=== PATIENT | female | born 1960 | race Caucasian/White ===

== ENCOUNTER 2018-08-16 18:11 | Inpatient (IN) ==
--- NOTE | 2018-08-16 22:57 | ED ---
HPI General Chief complaint: Weakness Stated complaint: leg pain/evac Time Seen by Provider: 08/16/18 22:22 Source: patient Mode of arrival: wheelchair Limitations: physical limitation History of Present Illness HPI Narrative: 58 yo female with a history of spinal stenosis and diabetic neuropathy presents with acute onset of bilateral arm and leg weakness for the past 4 days. States that she was previously able to stand and walk but has been unable to do so for the past 4 days. Also difficulty gripping utensils with hands. Has had several falls due to leg weakness resulting in bruising on extremities, no head trauma. Has a long history of diabetic neuropathy in both legs, states chronic numbness in both legs. However, does report that flexion of head results in "electric shock" sensation running down legs to knees as of the past few days. Patient urinary incontinence for a month with regular leakage of urine especially on standing. Some bowel incontinence which patient relates to inability to physically reach restroom in time. No chest pain, increase of baseline SOB, vision changes, slurred speech. Presented to ED in [place] twice over the last several days related to these complaints reportedly without relief of symptoms or clear diagnosis. Last MRI of patient's back done several years ago. Related Data Home Medications Medication Instructions Recorded Confirmed albuterol sulfate 1.25 mg INHALATION QID PRN 08/16/18 08/16/18 clonidine HCl 0.1 mg PO BID 08/16/18 08/16/18 duloxetine 30 mg PO BID 08/16/18 08/16/18 duloxetine 30 mg PO BID 08/16/18 08/16/18 fluticasone-salmeterol [Advair 1 inh INHALATION BID 08/16/18 08/16/18 Diskus] furosemide 40 mg PO BID 08/16/18 08/16/18 furosemide 40 mg PO DAILY 08/16/18 08/16/18 levothyroxine 88 mcg PO DAILY 08/16/18 08/16/18 levothyroxine 88 mcg PO DAILY 08/16/18 08/16/18 lisinopril-hydrochlorothiazide 1 tab PO DAILY 08/16/18 08/16/18 montelukast 10 mg PO QPM 08/16/18 08/16/18 montelukast 10 mg PO QPM 08/16/18 08/16/18 naproxen 500 mg PO BID 08/16/18 08/16/18 omeprazole 40 mg PO DAILY 08/16/18 08/16/18 oxycodone-acetaminophen 1 tab PO Q4H PRN 08/16/18 08/16/18 paroxetine HCl 20 mg PO DAILY 08/16/18 08/16/18 paroxetine HCl 20 mg PO DAILY 08/16/18 08/16/18 pioglitazone 45 mg PO DAILY 08/16/18 08/16/18 simvastatin 20 mg PO QPM 08/16/18 08/16/18 simvastatin 20 mg PO QPM 08/16/18 08/16/18 sitagliptin-metformin [Janumet] 1 tab PO BID 08/16/18 08/16/18 temazepam 30 mg PO PRN 08/16/18 tiotropium bromide [Spiriva with 1 cap INHALATION DAILY 08/16/18 08/16/18 HandiHaler] tizanidine 4 mg PO TID 08/16/18 08/16/18 Allergies Allergy/AdvReac Type Severity Reaction Status Date / Time No Known Allergies Allergy Verified 08/16/18 22:35 Review of Systems ROS: all other systems reviewed are negative [facility] Medical History Medical History Hx of diabetes mellitus (Acute) Hx of spinal stenosis (Acute) Hypertension (Acute) Morbid obesity (Acute) Social History Social History Smoking Status: Former smoker How Often Do You Have a Drink Containing Alcohol: Never Recent Travel in [facility] within the Last 8 Weeks: No Recent Out of Country Travel within the Last 8 Weeks: No Immunization History Tetanus Immunization: >5 Years Exam Const General: cooperative and no acute distress Nutritional Appearance: obese Orientation: alert, awake and oriented x3 Limitations: physical limitations [facility] Head: normocephalic and atraumatic Nose: no nasal discharge and no epistaxis Mouth: moist mucous membranes Eyes Sclera: normal sclerae Pupils: PERRL Neck Neck: trachea midline and no JVD Resp Effort & Inspection: no use of accessory muscles Auscultation: clear to auscultation bilaterally Cardio Rate: regular rate Rhythm: regular rhythm Heart Sounds: no murmurs GI Inspection: non-distended Palpation: soft, no hepatosplenomegaly and nontender Back/Spine/Pelvis Thoracic/Lumbar Spine: lumbar spinal tenderness Skin General: dry skin (warm) Neuro General: alert, awake, oriented x3 and CN's II-XI intact bilaterally Cranial Nerves: other Speech: speech normal Motor: other (4/5 strength upper extremities bilaterally, 2/5 strength in LEs bilaterally) Sensory Exam: other (decreased sensation to touch LE bilaterally) Extrem General: edema Laterality: bilaterally Psych Mood: congruent mood Affect: normal affect Judgment: judgment good Course Initial Documented Vital Signs Temperature 98.9 F 08/16/18 18:26 Pulse Rate 88 08/16/18 18:26 Respiratory Rate 24 08/16/18 18:26 Blood Pressure 140/90 08/16/18 18:26 Pulse Oximetry 95 08/16/18 18:26 Last Documented Vital Signs Temperature 98.9 F 08/16/18 18:26 Pulse Rate 85 08/17/18 00:17 Respiratory Rate 16 08/16/18 22:33 Blood Pressure 172/94 H 08/16/18 22:33 Pulse Oximetry 98 08/16/18 22:33 Medical Decision Making Lab Data Result diagrams: 08/16/18 22:50 08/16/18 22:50 Lab Results 08/16/18 08/16/18 08/16/18 Range/Units 22:50 22:50 22:50 WBC 7.4 (4.0-11.0) th/mm3 RBC 4.28 (4.00-5.30) mil/mm3 Hgb 13.8 (11.6-15.3) gm/dL Hct 41.7 (35.0-46.0) % MCV 97.5 (80.0-100.0) fL MCH 32.2 (27.0-34.0) pg MCHC 33.0 (32.0-36.0) % RDW 14.4 (11.6-17.2) % Plt Count 248 (150-450) th/mm3 MPV 8.5 (7.0-11.0) fL Neut % (Auto) 60.9 (16.0-70.0) % Lymph % (Auto) 27.9 (9.0-44.0) % [place] % (Auto) 6.0 (0.0-8.0) % Eos % (Auto) 4.4 H (0.0-4.0) % Baso % (Auto) 0.8 (0.0-2.0) % Neut # (Auto) 4.5 (1.8-7.7) th/mm3 Lymph # (Auto) 2.1 (1.0-4.8) th/mm3 [place] # (Auto) 0.4 (0.0-0.9) th/mm3 Eos # (Auto) 0.3 (0.0-0.4) th/mm3 Baso # (Auto) 0.1 (0.0-0.2) th/mm3 WBC Differential . Differential Comment Auto diff final PT 10.7 (9.8-11.6) sec INR 1.1 Ratio APTT 27.3 (24.3-30.1) sec Sodium 141 (136-145) meq/L Potassium 4.2 (3.5-5.1) meq/L Chloride 105 (98-107) meq/L Carbon Dioxide 31.2 (21.0-32.0) meq/L Anion Gap 5 (5-15) meq/L BUN 21 H (7-18) mg/dL Creatinine 1.36 H (0.50-1.00) mg/dL Estimated GFR 40 L (>89) mL/min Random Glucose 104 (74-106) mg/dL Calcium 9.5 (8.5-10.1) mg/dL Total Bilirubin 0.4 (0.2-1.0) mg/dL AST 16 (15-37) U/L ALT 14 (10-53) U/L Alkaline Phosphatase 104 (45-117) U/L Troponin I Less than 0.02 L (0.02-0.05) ng/mL Total Protein 6.7 (6.4-8.2) g/dL Albumin 2.9 L (3.4-5.0) g/dL Urine Color (Yellw/Straw) Urine Clarity (Clear) Urine pH (5.0-8.5) Ur Specific Sunflower (1.002-1.035) Urine Protein (Neg-Trace) mg/dL Urine Glucose (UA) (Negative) mg/dL Urine Ketones (Negative) mg/dL Urine Occult Blood (Negative) Urine Nitrate (Negative) Urine Bilirubin (Negative) Urine Urobilinogen (Less than 2) mg/dL Ur Leukocyte Esterase (Negative) Urine RBC (0-3) /hpf Urine WBC (0-5) /hpf Ur Squamous Epith Cells (0-5) /hpf Urine Bacteria (None) /hpf Urine Mucus (Occasional) /lpf Micro UA Comment Ur Microscopic Review Urine Culture Comments 08/16/18 Range/Units 22:50 WBC (4.0-11.0) th/mm3 RBC (4.00-5.30) mil/mm3 Hgb (11.6-15.3) gm/dL Hct (35.0-46.0) % MCV (80.0-100.0) fL MCH (27.0-34.0) pg MCHC (32.0-36.0) % RDW (11.6-17.2) % Plt Count (150-450) th/mm3 MPV (7.0-11.0) fL Neut % (Auto) (16.0-70.0) % Lymph % (Auto) (9.0-44.0) % [place] % (Auto) (0.0-8.0) % Eos % (Auto) (0.0-4.0) % Baso % (Auto) (0.0-2.0) % Neut # (Auto) (1.8-7.7) th/mm3 Lymph # (Auto) (1.0-4.8) th/mm3 [place] # (Auto) (0.0-0.9) th/mm3 Eos # (Auto) (0.0-0.4) th/mm3 Baso # (Auto) (0.0-0.2) th/mm3 WBC Differential Differential Comment PT (9.8-11.6) sec INR Ratio APTT (24.3-30.1) sec Sodium (136-145) meq/L Potassium (3.5-5.1) meq/L Chloride (98-107) meq/L Carbon Dioxide (21.0-32.0) meq/L Anion Gap (5-15) meq/L BUN (7-18) mg/dL Creatinine (0.50-1.00) mg/dL Estimated GFR (>89) mL/min Random Glucose (74-106) mg/dL Calcium (8.5-10.1) mg/dL Total Bilirubin (0.2-1.0) mg/dL AST (15-37) U/L ALT (10-53) U/L Alkaline Phosphatase (45-117) U/L Troponin I (0.02-0.05) ng/mL Total Protein (6.4-8.2) g/dL Albumin (3.4-5.0) g/dL Urine Color Yellow (Yellw/Straw) Urine Clarity Clear (Clear) Urine pH 5.0 (5.0-8.5) Ur Specific Sunflower 1.011 (1.002-1.035) Urine Protein Negative (Neg-Trace) mg/dL Urine Glucose (UA) Negative (Negative) mg/dL Urine Ketones Negative (Negative) mg/dL Urine Occult Blood Negative (Negative) Urine Nitrate Negative (Negative) Urine Bilirubin Negative (Negative) Urine Urobilinogen Less than 2 (Less than 2) mg/dL Ur Leukocyte Esterase Small H (Negative) Urine RBC Less than 1 (0-3) /hpf Urine WBC 3 (0-5) /hpf Ur Squamous Epith Cells 1 (0-5) /hpf Urine Bacteria Rare H (None) /hpf Urine Mucus Few H (Occasional) /lpf Micro UA Comment Cath-culture ind Ur Microscopic Review Not Reportable Urine Culture Comments Cath-cult indicated Imaging Data Radiologist's impression: Lumbar Spine MRI 08/16/18 22:50 CONCLUSION: Multilevel degenerative disc disease with moderate stenosis at L4-L5 secondary to disc bulge and posterior element hypertrophy. Left-sided protrusion at L5-S1, compromising the exiting left L5 nerve root Thoracic Spine MRI 08/16/18 22:50 CONCLUSION: 1. Mild multilevel degenerative disc disease as above without evidence of stenosis. Cervical Spine MRI 08/17/18 22:48 CONCLUSION: Extruded disc fragment at C3-C4 eccentric to the right causing severe spinal canal stenosis with associated cord edema. There is a central to right-sided disc protrusion at C5-C6 compromising the nerve root exit zone. Discharge Plan Discharge Disposition Patient Disposition: 30 Still Patient Physicians Team ED Provider: Aliza Flores Primary Care Provider: UNKNOWN, Attending Provider: Rod Santiago Other Providers: Alexis Kam Status ED Status: Admitted Patient
[2018-08-16 23:10] LABS: Baso # (Auto) 0.1 th/mm3 (0.0-0.2); Baso % (Auto) 0.8 % (0.0-2.0); Eos # (Auto) 0.3 th/mm3 (0.0-0.4); Eos % (Auto) 4.4 % (0.0-4.0); Hematocrit 41.7 % (35.0-46.0); Hemoglobin 13.8 gm/dL (11.6-15.3); Lymph # (Auto) 2.1 th/mm3 (1.0-4.8); Lymph % (Auto) 27.9 % (9.0-44.0); Mean Corpuscular Hemoglobin 32.2 pg (27.0-34.0); Mean Corpuscular Volume 97.5 fL (80.0-100.0); Mean Platelet Volume 8.5 fL (7.0-11.0); Mono # (Auto) 0.4 th/mm3 (0.0-0.9); Neut # (Auto) 4.5 th/mm3 (1.8-7.7); Neut % (Auto) 60.9 % (16.0-70.0); Platelet Count 248 th/mm3 (150-450); Red Blood Count 4.28 mil/mm3 (4.00-5.30); Red Cell Distribution Width 14.4 % (11.6-17.2); White Blood Count 7.4 th/mm3 (4.0-11.0)
[2018-08-16 23:13] LABS: Bacteria,Urine Rare /hpf; Bilirubin,Urine Negative (Negative); Clarity,Urine Clear (Clear); Color,Urine Yellow (Yellw/Straw); Glucose,Urine (UA) Negative (Negative); Leukocyte Esterase,Urine Small (Negative); Mucus,Urine Few /lpf (Occasional); Nitrite,Urine Negative (Negative); Specific Gravity,Urine 1.011 (1.002-1.035); Squamous Epithelial Cell,Urine 1 /hpf (0-5)
[2018-08-16 23:36] LABS: Alanine Aminotransferase 14 U/L (10-53); Albumin 2.9 g/dL (3.4-5.0); Anion Gap 5 meq/L (5-15); Aspartate Aminotransferase 16 U/L (15-37); Blood Urea Nitrogen 21 mg/dL (7-18); Calcium 9.5 mg/dL (8.5-10.1); Carbon Dioxide 31.2 meq/L (21.0-32.0); Chloride 105 meq/L (98-107); Glomerular Filtration Rate 40 mL/min (>89); Glucose,Random 104 mg/dL (74-106); Potassium 4.2 meq/L (3.5-5.1); Sodium 141 meq/L (136-145)
[2018-08-16 23:39] LABS: Activated Partial Thrombo Time 27.3 sec (24.3-30.1); INR 1.1 Ratio; Prothrombin Time 10.7 sec (9.8-11.6)
[2018-08-16 23:40] LABS: Alkaline Phosphatase 104 U/L (45-117); Total Protein 6.7 g/dL (6.4-8.2)
--- NOTE | 2018-08-17 00:04 | MR ---
EXAM DATE: 08/16/2018 11:00 PM EDT AGE/SEX: 58 years / Female INDICATIONS: . Cord compression, back pain for four days. CLINICAL DATA: This is the patient's initial encounter. Patient reports that signs and symptoms have been present for 4 - 6 days and indicates a pain score of 9/10. MEDICAL/SURGICAL HISTORY: Hypertension. Diabetes mellitus type II. . Ovary sx. COMPARISON: No prior exams available for comparison. TECHNIQUE: Multiplanar, multisequence MRI of the lumbar spine was performed without contrast. Patie nt was scanned in a sitting position; neutral, flexion, and extension scans were performed in the sa gittal plane. FINDINGS: Sagittal images demonstrate normal vertebral body alignment and curvature. No focal areas of marrow r eplacement are identified. The conus terminates normally. Axial images were performed from T12-L1 thr ough L5-S1. T12-L1: There is no evidence of disc protrusion or spinal canal stenosis. There is mild facet arthri tis bilaterally. L1-L2: No significant abnormalities identified. L2-L3: There is mild annular bulge of the disc. There is mild facet arthritis and ligamentum flavum hypertrophy bilaterally. The neural foramina are clear bilaterally. L3-L4: There is mild annular bulge of the disc. There is moderate facet arthritis bilaterally with l igamentum flavum hypertrophy. There is a large synovial cyst on the right at L3-L4 posterior to the spinal canal measuring 15 mm x 10 mm . There is mild spinal canal stenosis. L4-L5: There is broad-based annular bulge of disc. There is moderate facet arthritis bilaterally wit h ligamentum flavum hypertrophy. There is moderate spinal canal stenosis. There is moderate neural f oraminal narrowing on the right. L5-S1: A central to left sided disc protrusion is present impinging on the thecal sac. This compromi ses the exiting left L5 nerve root with moderate foraminal narrowing. There is moderate facet arthrit is bilaterally with ligamentum flavum hypertrophy. There is no significant spinal canal stenosis. CONCLUSION: Multilevel degenerative disc disease with moderate stenosis at L4-L5 secondary to disc bulge and post erior element hypertrophy. Left-sided protrusion at L5-S1, compromising the exiting left L5 nerve root Electronically signed by: Ethan Sanchez MD 08/17/2018 12:02 AM EDT
--- NOTE | 2018-08-17 00:06 | MR ---
EXAM DATE: 08/16/2018 10:50 PM EDT AGE/SEX: 58 years / Female INDICATIONS: . Cord compression, back pain for four days. CLINICAL DATA: This is the patient's initial encounter. Patient reports that signs and symptoms have been present for 4 - 6 days and indicates a pain score of 9/10. MEDICAL/SURGICAL HISTORY: Hypertension. Diabetes mellitus type II. . Ovary sx. COMPARISON: No prior exams available for comparison. TECHNIQUE: Multiplanar, multisequence MRI of the thoracic spine was performed. FINDINGS: Sagittal images demonstrate normal vertebral body alignment and curvature. No focal area of marrow re placement are identified. The cord itself is normal in caliber and signal intensity. The conus termin ates normally. Axial images were performed from T1-T2 through T12-L1. Multilevel marginal osteophyte formation is present. T1-T2: No significant abnormalities identified. T2-T3: No significant abnormalities identified. T3-T4: There is mild annular bulge of the disc. There is no significant spinal canal stenosis. T4-T5: No significant abnormalities identified. T5-T6: No significant abnormalities identified. T6-T7: No significant abnormalities identified. T7-T8: There is mild annular bulge of the disc asymmetric to the right. There is no significant spin al canal stenosis. T8-T9: There is mild diffuse annular bulge of the disc. The neural foramina are clear bilaterally. T here is no significant spinal canal stenosis. T9-T10: No significant abnormalities identified. T10-T11: No significant abnormalities identified. T11-T12: No significant abnormalities identified. T12-L1: No significant abnormalities identified. CONCLUSION: 1. Mild multilevel degenerative disc disease as above without evidence of stenosis. Electronically signed by: Ethan Sanchez MD 08/17/2018 12:05 AM EDT
--- NOTE | 2018-08-17 00:37 | MR ---
EXAM DATE: 08/17/2018 10:48 PM EDT AGE/SEX: 58 years / Female INDICATIONS: . Cord compression, back pain for four days. CLINICAL DATA: This is the patient's initial encounter. Patient reports that signs and symptoms have been present for 4 - 6 days and indicates a pain score of 9/10. MEDICAL/SURGICAL HISTORY: Hypertension. Diabetes mellitus type II. . Ovary removed. COMPARISON: No prior exams available for comparison. TECHNIQUE: Multiplanar, multisequence MRI examination of the cervical spine was performed without co ntrast. FINDINGS: MRI of the cervical spine was performed in sagittal and axial planes. There is straightening of the n ormal cervical lordosis which may be secondary positioning or spasm. No focal areas of marrow replace ment are identified. The craniocervical junction appears normal there is cord edema at C3-C4 in this patient with a large central disc protrusion as well as extruded fragment. Axial images were performe d from C2-C3 through C7-T1.There is desiccation at all levels in the cervical spine. C2-C3: No significant abnormalities identified. C3-C4: There is a large extruded disc fragment impinging on the thecal sac with associated cord elfego a causing severe spinal canal stenosis. This is asymmetric to the right. There is moderate neural for aminal narrowing bilaterally. C4-C5: There is mild annular bulge of the disc. There is moderate facet arthritis bilaterally with l igamentum flavum hypertrophy. There is moderate neural foraminal narrowing bilaterally. C5-C6: A central to right-sided disc protrusion is present impinging on the thecal sac. There is mil d spinal canal stenosis. There is moderate neural foraminal narrowing on the right. This compromises the exiting right-sided nerve root exit zone. C6-C7: There is mild annular bulge of the disc. There is no significant spinal canal stenosis. The n eural foramina are clear bilaterally. C7-T1: No significant abnormalities identified. CONCLUSION: Extruded disc fragment at C3-C4 eccentric to the right causing severe spinal canal stenosis with asso ciated cord edema. There is a central to right-sided disc protrusion at C5-C6 compromising the nerve root exit zone. Electronically signed by: Ethan Sanchez MD 08/17/2018 12:35 AM EDT
[2018-08-17] MEDS ORDERED: Dexamethasone Inj 20 MG/5 ML Vial IV.PUSH ONE (00:55)
[2018-08-17] MEDS ORDERED: Acetaminophen 325 MG Tablet PO PRN (01:26)
[2018-08-17] MEDS ORDERED: Bisacodyl 10 MG Supp RECTAL PRN ×2 (01:26→16:43)
[2018-08-17] MEDS ORDERED: Dextrose 50% in Water 50 ML Vial IV.PUSH PRN (01:32)
--- NOTE | 2018-08-17 01:43 | P.HPCC ---
History of Present Illness Primary Care Physician: UNKNOWN History of Present Illness: 58-year-old female with a history of spinal stenosis and diabetic neuropathy presents with acute onset of bilateral arm and leg weakness for the past 4 days. States that she was previously able to stand and walk but has been unable to do so for the past 4 days. Also difficulty gripping utensils with hands. Has had several falls due to leg weakness resulting in bruising on extremities, no head trauma. Has a long history of diabetic neuropathy in both legs, states chronic numbness in both legs. However, does report that flexion of head results in "electric shock" sensation running down legs to knees as of the past few days. Patient urinary incontinence for a month with regular leakage of urine especially on standing. Some bowel incontinence which patient relates to inability to physically reach restroom in time. No chest pain, increase of baseline SOB, vision changes, slurred speech. Presented to ED in [place] twice over the last several days related to these complaints reportedly without relief of symptoms or clear diagnosis. The MRI of the C-spine shows Extruded disc fragment at C3-C4 eccentric to the right causing severe spinal canal stenosis with associated cord edema. This was discussed by ED attending with the neurosurgeon comfort station supervisor with recommendations of IV steroids and conservative management at this time. Inpatient Certification: I certify that the inpatient services were ordered in accordance with Medicare regulations governing the order. 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 - Medical History Medical History: Medical History (Last Reviewed 08/16/18 @ 23:06 by Herb Pennington) Hx of diabetes mellitus Hx of spinal stenosis Hypertension Morbid obesity - Tobacco History Smoking Status: Former smoker - Alcohol History How Often Do You Have a Drink Containing Alcohol: Never - Travel History Recent Travel in the [place] Within the Last 8 Weeks: No Recent Travel Out of the Country Within the Last 8 Weeks: No - Immunization History Tetanus Immunization: >5 Years Medications and Allergies Active Medications: Active Medications Acetaminophen (Tylenol) 650 mg PO Q6H PRN PRN Reason: PAIN 1-10 AND/OR FEVER >101F Al Hydroxide/Mg Hydroxide (Milk Of Magnesia Liq) 30 ml PO Q12H PRN PRN Reason: Mild Constipation Albuterol (Duoneb Neb (Katlyn)) 1 ampul NEB Q4HR NEB KATLYN Albuterol (Duoneb Neb (Prn)) 1 ampul NEB Q2HR NEB PRN PRN Reason: WHEEZING Bisacodyl (Dulcolax Supp) 10 mg RECTAL DAILY PRN PRN Reason: SEVERE CONSITIPATION Chlorhexidine Gluconate (Chlorhexidine 2% Cloth) 3 pack TOPICAL DAILY@0400 KATLYN Stop: 08/22/18 03:59 Chlorhexidine Gluconate (Chlorhexidine 2% Cloth) 3 pack TOPICAL DAILY@0400 PRN PRN Reason: Extra cloth needed Stop: 08/22/18 03:59 Dexamethasone Sodium Phosphate (Decadron Inj) 4 mg IV.PUSH Q6HR KATLYN Dextrose (D50w Vial) 50 ml IV.PUSH UNSCH PRN PRN Reason: PER HYPOGLYCEMIA PROTOCOL Duloxetine HCl (Cymbalta) 30 mg PO BID [facility] Enoxaparin Sodium (Lovenox Inj) 40 mg SQ Q24H [facility] Famotidine (Pepcid Pf Inj) 20 mg IV.PUSH Q12HR KATLYN Glucagon (Glucagon Inj) 1 mg OTHER PRN PRN PRN Reason: for Hypoglycemia Protocol Hydromorphone HCl (Dilaudid Pf Inj) 1 mg IV.PUSH Q4H PRN PRN Reason: PAIN SCALE 6 TO 10 Sodium Chloride (Ns Inj) 1,000 mls @ 154 mls/hr IV.CONT .Q6H30M [facility] Insulin Aspart (Novolog Insulin Correctional Sugar Inj) 0 unit SQ Q6HR [facility]; Protocol Insulin Detemir (Levemir Inj) 10 unit SQ BID [facility] Lactulose (Lactulose Liq) 30 ml PO DAILY PRN PRN Reason: SEVERE CONSITIPATION Levothyroxine Sodium (Synthroid) 88 mcg PO DAILY@0600 [facility] Montelukast Sodium (Singulair) 10 mg PO QPM [facility] Non-Formulary Medication (Fluticasone-Salmeterol [Advair Diskus]) 1 inh INHALATION BID [facility] Non-Formulary Medication (Simvastatin [Simvastatin]) 20 mg PO QPM [facility] Non-Formulary Medication (Tizanidine [Tizanidine]) 4 mg PO TID [facility] Paroxetine HCl (Paxil) 20 mg PO DAILY [facility] Senna/Docusate Sodium (Elida-Colace) 1 tab PO BID [facility] Sennosides (Senokot) 17.2 mg PO Q12H PRN PRN Reason: Moderate Constipation Sodium Chloride (Ns Flush) 2 ml IV.FLUSH BID KATLYN Sodium Chloride (Ns Flush) 2 ml IV.FLUSH PRN PRN PRN Reason: FLUSH AFTER USING IV ACCESS Temazepam (Restoril) 30 mg PO HS PRN PRN Reason: SLEEP Tiotropium Adair (Spiriva 18 Mcg Inh) 18 mcg INH DAILY [facility] Allergies Allergy/AdvReac Type Severity Reaction Status Date / Time No Known Allergies Allergy Verified 08/16/18 22:35 Home Medications Medication Instructions Recorded Confirmed Type albuterol sulfate 1.25 mg INHALATION QID PRN 08/16/18 08/16/18 History clonidine HCl 0.1 mg PO BID 08/16/18 08/16/18 History duloxetine 30 mg PO BID 08/16/18 08/16/18 History duloxetine 30 mg PO BID 08/16/18 08/16/18 History fluticasone-salmeterol [Advair 1 inh INHALATION BID 08/16/18 08/16/18 History Diskus] furosemide 40 mg PO BID 08/16/18 08/16/18 History furosemide 40 mg PO DAILY 08/16/18 08/16/18 History levothyroxine 88 mcg PO DAILY 08/16/18 08/16/18 History levothyroxine 88 mcg PO DAILY 08/16/18 08/16/18 History lisinopril-hydrochlorothiazide 1 tab PO DAILY 08/16/18 08/16/18 History montelukast 10 mg PO QPM 08/16/18 08/16/18 History montelukast 10 mg PO QPM 08/16/18 08/16/18 History naproxen 500 mg PO BID 08/16/18 08/16/18 History omeprazole 40 mg PO DAILY 08/16/18 08/16/18 History oxycodone-acetaminophen 1 tab PO Q4H PRN 08/16/18 08/16/18 History paroxetine HCl 20 mg PO DAILY 08/16/18 08/16/18 History paroxetine HCl 20 mg PO DAILY 08/16/18 08/16/18 History pioglitazone 45 mg PO DAILY 08/16/18 08/16/18 History simvastatin 20 mg PO QPM 08/16/18 08/16/18 History simvastatin 20 mg PO QPM 08/16/18 08/16/18 History sitagliptin-metformin [Janumet] 1 tab PO BID 08/16/18 08/16/18 History temazepam 30 mg PO PRN 08/16/18 History tiotropium bromide [Spiriva with 1 cap INHALATION DAILY 08/16/18 08/16/18 History HandiHaler] tizanidine 4 mg PO TID 08/16/18 08/16/18 History Results - Labs CBC & Chem 7: 08/16/18 22:50 08/16/18 22:50 Labs: Short CBC 08/16/18 Range/Units 22:50 WBC 7.4 (4.0-11.0) th/mm3 Hgb 13.8 (11.6-15.3) gm/dL Hct 41.7 (35.0-46.0) % Plt Count 248 (150-450) th/mm3 BMP 08/16/18 22:50 Sodium 141 Potassium 4.2 Chloride 105 Carbon Dioxide 31.2 BUN 21 H Creatinine 1.36 H Calcium 9.5 Cardiac Enzymes 08/16/18 Range/Units 22:50 Troponin I Less than 0.02 L (0.02-0.05) ng/mL Liver Function 08/16/18 Range/Units 22:50 Total Bilirubin 0.4 (0.2-1.0) mg/dL AST 16 (15-37) U/L ALT 14 (10-53) U/L Alkaline Phosphatase 104 (45-117) U/L Albumin 2.9 L (3.4-5.0) g/dL Urine 08/16/18 Range/Units 22:50 Urine Color Yellow (Yellw/Straw) Urine Clarity Clear (Clear) Urine pH 5.0 (5.0-8.5) Ur Specific [place] 1.011 (1.002-1.035) Urine Protein Negative (Neg-Trace) mg/dL Urine Glucose (UA) Negative (Negative) mg/dL - Imaging Impressions Lumbar Spine MRI 08/16/18 22:50 CONCLUSION: Multilevel degenerative disc disease with moderate stenosis at L4-L5 secondary to disc bulge and posterior element hypertrophy. Left-sided protrusion at L5-S1, compromising the exiting left L5 nerve root Thoracic Spine MRI 08/16/18 22:50 CONCLUSION: 1. Mild multilevel degenerative disc disease as above without evidence of stenosis. Cervical Spine MRI 08/17/18 22:48 CONCLUSION: Extruded disc fragment at C3-C4 eccentric to the right causing severe spinal canal stenosis with associated cord edema. There is a central to right-sided disc protrusion at C5-C6 compromising the nerve root exit zone. Exam Vital signs: Vital Signs 08/16/18 18:26 08/16/18 22:33 08/17/18 00:17 Temperature 98.9 F Pulse Rate 88 74 85 Respiratory Rate 24 16 Blood Pressure 140/90 172/94 H Pulse Oximetry 95 98 Intake & Output 08/16/18 08/16/18 08/17/18 06:59 18:59 06:59 Weight 165.561 kg - Constitutional moderate distress - Routine HEENT Exam Head: Present: normocephalic, atraumatic Eye: Present: PERRL, normal accommodation ENT: Present: mucous membranes moist - Routine Neck Exam Present: supple, full ROM. Absent: JVD, carotid bruit - Routine Respiratory Exam Absent: accessory muscle use, rales, respiratory distress - Routine Cardiovascular Exam Present: RRR, S1, S2. Absent: murmur, gallop, rubs - Routine Abdominal Exam Present: soft, normoactive bowel sounds. Absent: tenderness, distended - Routine Extremities Exam Present: edema. Absent: cyanosis, clubbing Comments: Extreme weakness in both lower extremities bilaterally, loss of sensation bilaterally with down, strength 4 out of 5 in upper extremities bilaterally, no sensation deficit. - Routine Skin Exam Present: intact. Absent: cyanosis, erythema Septic Shock Reassessment Septic shock perfusion: reassessment completed Caprini VTE Risk Assessment Caprini VTE Risk Assessment: Moderate/High Risk (score >= 2) Caprini Risk Assessment Model: Point Value = 1 Point Value = 2 Point Value = 3 Point Value = 5 Age 41-60 Minor surgery BMI > 25 kg/m2 Swollen legs Varicose veins or History of unexplained or recurrent spontaneous Oral contraceptives or hormone replacement Sepsis (< 1 month) Serious lung disease, including pneumonia (< 1 month) Abnormal pulmonary function Acute myocardial infarction Congestive heart failure (< 1 month) History of inflammatory bowel disease Medical patient at bed rest Age 61-74 Arthroscopic surgery Major open surgery (> 45 min) Laparoscopic surgery (> 45 min) Malignancy Confined to bed (> 72 hours) Immobilizing plaster cast Central venous access Age >= 75 History of VTE Family history of VTE Factor V Leiden Prothrombin [id number] Lupus anticoagulant Anticardiolipin antibodies Elevated serum homocysteine Heparin-induced thrombocytopenia Other congenital or acquired thrombophilia Stroke (< 1 month) Elective arthroplasty Hip, pelvis, or leg fracture Acute spinal cord injury (< 1 month) Prophylaxis Regimen: Total Risk Factor Score Risk Level Prophylaxis Regimen 0-1 Low Early ambulation 2 Moderate Order ONE of the following: *Sequential Compression Device (SCD) *Heparin 5000 units SQ BID 3-4 Higher Order ONE of the following medications: *Heparin 5000 units SQ TID *Enoxaparin/Lovenox 40 mg SQ daily (WT < 150 kg, CrCl > 30 mL/min) *Enoxaparin/Lovenox 30 mg SQ daily (WT < 150 kg, CrCl > 10-29 mL/min) *Enoxaparin/Lovenox 30 mg SQ BID (WT < 150 kg, CrCl > 30 mL/min) AND/OR *Sequential Compression Device (SCD) 5 or more Highest Order ONE of the following medications: *Heparin 5000 units SQ TID (Preferred with Epidurals) *Enoxaparin/Lovenox 40 mg SQ daily (WT < 150 kg, CrCl > 30 mL/min) *Enoxaparin/Lovenox 30 mg SQ daily (WT < 150 kg, CrCl > 10-29 mL/min) *Enoxaparin/Lovenox 30 mg SQ BID (WT < 150 kg, CrCl > 30 mL/min) AND *Sequential Compression Device (SCD) Assessment and Plan - Assessment and Plan Plan: C3-C4 spinal stenosis -Due to Extruded disc fragment -with associated cord edema. -IV steroids per neurosurgery -Keep MAP 85-90 -Further management per neurosurgery Urinary incontinence -Due to above -Wise COPD -DuoNeb scheduled and as needed -Symbicort - Singulair -Spiriva Depression -Cymbalta -Paroxetine Hypothyroidism -Levothyroxine Dyslipidemia -Pravastatin Diabetes mellitus -Hold p.o. meds while in the ICU -Levemir twice daily -Insulin sliding scale Hypertension -Permissive hypertension for spinal cord perfusion -Map goal 85-90 DVT GI prophylaxis -Teds SCDs -Lovenox -Pepcid 35 minutes of critical care
[2018-08-17] MEDS: Sod Chloride 0.9% Inj 1,000 ML IV.CONT SCH ×4 (01:57→22:15)
[2018-08-17] MEDS ORDERED: Enoxaparin Inj 40 MG/0.4 ML Syringe SQ SCH (03:00)
[2018-08-17] MEDS: HYDROmorphone PF Inj 2 MG/ML Vial IV.PUSH PRN ×3 (03:36→19:46)
[2018-08-17] MEDS: Chlorhexidine Gluconate 2% 1 Pack (2 Cloths) TOPICAL SCH (04:00)
[2018-08-17] MEDS ORDERED: Chlorhexidine Gluconate 2% 1 Pack (2 Cloths) TOPICAL PRN (04:00)
[2018-08-17] MEDS ORDERED: Metoprolol Inj 5 MG/5 ML Vial ONE (04:21)
[2018-08-17] MEDS ORDERED: Metoprolol Inj 5 MG/5 ML Vial IV.PUSH ONE (04:30)
[2018-08-17] MEDS: Levothyroxine 88 MCG Tablet PO SCH (05:10)
[2018-08-17] MEDS: Insulin NovoLOG Aspart Correctional Sugar Inj SQ SCH ×4 (06:08→23:14)
[2018-08-17] MEDS ORDERED: Budesonide-Formoterol 160/4.5 MCG 6 GM Inhaler INH SCH (09:00)
[2018-08-17] MEDS ORDERED: TIZANIDINE 4 MG PO SCH (09:00)
--- NOTE | 2018-08-17 09:02 | P.CONNS ---
History of Present Illness Service: Neurosurgery Consult date: 08/17/18 Requesting Physician: Rod Santiago (It Programmer) Reason for Consult: Cervical stenosis with spinal cord injury Primary Care Provider: UNKNOWN Chief Complaint: Weakness and numbness History of Present Illness: 58-year-old morbidly obese female with a chronic history of neck and low back pain for which she is undergone extensive pain management with epidural steroid injections. Over the past month she started noticing urinary incontinence as well as unsteadiness in her gait with progressive weakness in the lower extremities and upper extremities along with frequent falls. She went to [facility] emergency room 5 days ago because she is a difficulty walking even with a walker and was informed that she had a low magnesium level and sent home, she went back to the emergency room 3 days ago with worsening weakness and inability to walk and was informed that she had some arthritis and degeneration of the spine along with low magnesium level and sent home. She presented to the emergency room at [facility] late last evening with a progressive weakness and workup included a complete spine MRI scan shows a severe C3-4 spinal stenosis from large osteophyte and disc protrusion eccentric to the right side to the significant T2-weighted myelomalacia in the cervical cord noted. There is also mild to moderate stenosis at C5-6 level and mild stenosis C6-7 level. She has moderate L4-5 spinal stenosis from facet and ligamentum flavum hypertrophy. She also is a diabetic and has diabetic neuropathy involving her feet which is chronic. She relates shocklike sensation going from the cervical spine to her feet whenever she flexes her neck and is also noted numbness and paresthesias in the upper extremities along with weakness in the upper and lower extremities which have been ongoing for the past months and progressively worsening. Review of Systems Constitutional: Reports fatigue, Reports lack of energy, Reports weakness, Denies anorexia, Denies body ache(s), Denies chills, Denies daytime sleepiness, Denies excessive sweating, Denies fever(s), Denies headache(s), Denies increased appetite, Denies malaise, Denies night sweats, Denies weight gain, Denies weight loss, Denies other Eyes: Denies blind spots, Denies blurry vision, Denies bulging eyes, Denies change in vision, Denies double vision, Denies discharge, Denies dry eyes, Denies floaters, Denies irritation, Denies itchy eyes, Denies loss of vision, Denies pain, Denies requires corrective lenses, Denies sensitivity to light, Denies other Ears, Nose, Mouth, and Throat: Reports dry mouth, Reports neck pain, Denies abnormal hearing, Denies bleeding gums, Denies bad breath, Denies change in voice, Denies dental pain, Denies difficulty swallowing, Denies dizziness, Denies ear discharge, Denies ear pain, Denies facial pain, Denies headache(s), Denies hearing loss, Denies hoarseness, Denies lip swelling, Denies nosebleed, Denies mouth lesions, Denies mouth pain, Denies nasal congestion, Denies nasal discharge, Denies nasal obstruction, Denies nasal trauma, Denies neck lump, Denies nose pain, Denies pain with swallowing, Denies poor balance, Denies post nasal drip, Denies ringing in the ears, Denies sinus pain, Denies sinus pressure , Denies sore throat, Denies throat swelling, Denies tongue swelling, Denies other Cardiovascular: Denies chest pain, Denies chest pain at rest, Denies chest pain with activity, Denies excessive sweating, Denies fainting, Denies fast heart rate, Denies foot swelling, Denies generalized swelling, Denies irregular heart rhythm, Denies leg pain with activity, Denies leg sores, Denies leg swelling, Denies lightheadedness, Denies radiating jaw, neck or arm pain, Denies rapid, pounding, or irregular heartbeat, Denies shortness of breath, Denies shortness of breath with activity, Denies shortness of breath when lying down, Denies shortness of breath causing sudden awakening, Denies slow heart rate, Denies other Respiratory: Denies change in phlegm color, Denies chest congestion, Denies cough, Denies coughing up blood, Denies excessive phlegm production, Denies pain on inspiration, Denies pain with cough, Denies shortness of breath, Denies shortness of breath with activity, Denies snoring, Denies stridor, Denies wheezing, Denies other Gastrointestinal: Denies abdominal pain, Denies belching, Denies black, tarry stools, Denies bloating, Denies bright, red blood in stools, Denies change in bowel habits, Denies constant urge to pass stool, Denies change in stools, Denies coffee ground vomit, Denies constipation, Denies cramping, Denies difficulty swallowing, Denies excessive passing of gas, Denies feeling full early, Denies heartburn, Denies incontinent of stools, Denies loose stools, Denies nausea, Denies pain with swallowing, Denies vomiting, Denies vomiting blood, Denies other Genitourinary: Reports difficulty urinating, Reports dribbling after urination, Reports frequent nighttime urination, Reports urinary incontinence, Reports urinary urgency, Denies abnormal periods, Denies abnormal vaginal bleeding, Denies absent period, Denies bleeding between periods, Denies blood in urine, Denies difficulty starting urination, Denies genital itching, Denies genital lesions, Denies heavy periods, Denies hot flashes, Denies light periods, Denies nipple discharge, Denies painful intercourse, Denies painful periods, Denies painful urination, Denies pelvic pain, Denies prolapse symptoms, Denies sexual problems, Denies side pain, Denies vaginal discharge, Denies vaginal dryness, Denies vaginal odor, Denies vaginal itching, Denies other Musculoskeletal: Reports abnormal walking, Reports back pain, Reports limited joint movement, Reports muscle cramps, Reports muscle weakness, Reports neck pain, Reports numbness, Reports radiating pain into limb, Reports stiffness, Reports tingling, Denies body aches, Denies decreased muscle mass, Denies deformity, Denies joint pain, Denies joint swelling, Denies loss of height, Denies other Skin/Breast: Reports bleeding lesions, Reports unusual bruising, Denies acne, Denies boil, Denies breast swelling, Denies breast skin changes, Denies breast pain, Denies breast lump, Denies change in breast shape, Denies change in hair, Denies change in skin color, Denies changing lesions, Denies dry skin, Denies excessive hair growth, Denies hair loss, Denies itching, Denies lesions, Denies nail changes, Denies new lesions, Denies nipple discharge, Denies non-healing lesions, Denies redness, Denies sensitivity to light, Denies rash, Denies skin pain, Denies skin ulcer, Denies sores, Denies stretch gibbs, Denies wounds, Denies yellowing of the skin, Denies other Neurologic: Reports abnormal movements, Reports abnormal walking, Reports frequent falls, Reports lack of coordination, Reports localized weakness, Reports numbness, Reports radiating pain, Reports restless legs, Reports sensory deficit, Reports tingling, Reports tingling/numbness/burning sensations , Reports unsteadiness, Reports weakness, Denies abnormal hearing, Denies abnormal speech, Denies behavioral changes, Denies burning sensations, Denies confusion, Denies dizziness, Denies fainting, Denies headache(s), Denies loss of vision, Denies memory loss, Denies other visual disturbances, Denies convulsions, Denies seizure-like activity, Denies tremor(s), Denies other Psychiatric: Denies abnormal sleep pattern, Denies anxiety, Denies behavioral changes, Denies change in appetite, Denies change in sex drive, Denies confusion , Denies depression, Denies difficulty concentrating, Denies hearing things others do not hear, Denies hopelessness, Denies irritability, Denies lack of enjoyment, Denies memory loss, Denies mood swings, Denies panic attacks, Denies paranoia, Denies seeing things others do not see, Denies sensing things others do not sense, Denies tactile hallucinations, Denies thoughts of hurting/killing others, Denies thoughts of hurting/killing yourself, Denies other Endocrine: Reports increased urination, Denies cold intolerance, Denies excessive sweating, Denies flushing, Denies heat intolerance, Denies increased hunger, Denies increased thirst, Denies rapid, pounding, or irregular heartbeat , Denies other Hematologic/Lymphatic: Reports easy bleeding, Reports easy bruising, Denies enlarged lymph nodes, Denies other Allergic/Immunologic: Denies GI upset with certain foods, Denies hives, Denies itchy eyes, Denies lip swelling, Denies seasonal runny nose, Denies throat swelling, Denies tongue swelling, Denies wheezing, Denies other PMFSH - History History Provided By: Patient - Medical History Medical History: Medical History (Last Reviewed 08/17/18 @ 08:50 by Alexis Kam MD) Hx of diabetes mellitus Hx of spinal stenosis Hypertension Morbid obesity - Tobacco History Second Hand Smoke Exposure: No Tobacco Use In Past 30 Days: Yes Smoking Status: Heavy tobacco smoker Tobacco Type: Cigarettes - Alcohol History How Often Do You Have a Drink Containing Alcohol: 2 to 3 times a week - Substance Use History Substance History: No History of Abuse - Travel History Recent Travel in the [place] Within the Last 8 Weeks: No Recent Travel Out of the Country Within the Last 8 Weeks: No - Immunization History Tetanus Immunization: >5 Years Medications and Allergies Active Medications: Active Medications Acetaminophen (Tylenol) 650 mg PO Q6H PRN PRN Reason: PAIN 1-10 AND/OR FEVER >101F Al Hydroxide/Mg Hydroxide (Milk Of Tate Liq) 30 ml PO Q12H PRN PRN Reason: Mild Constipation Albuterol (Duoneb Neb (Katlyn)) 1 ampul NEB Q4HR NEB KATLYN Last Admin: 08/17/18 08:22 Dose: 1 ampul Albuterol (Duoneb Neb (Prn)) 1 ampul NEB Q2HR NEB PRN PRN Reason: WHEEZING Bisacodyl (Dulcolax Supp) 10 mg RECTAL DAILY PRN PRN Reason: SEVERE CONSITIPATION Budesonide/Formoterol Fumarate (Symbicort 160/4.5 Mcg Inh) 2 puff INH BID KATLYN Budesonide/Formoterol Fumarate (Symbicort 160/4.5 Mcg Inh) 2 puff INH BID KATLYN Chlorhexidine Gluconate (Chlorhexidine 2% Cloth) 3 pack TOPICAL DAILY@0400 KATLYN Stop: 08/22/18 03:59 Last Admin: 08/17/18 04:00 Dose: 3 pack Chlorhexidine Gluconate (Chlorhexidine 2% Cloth) 3 pack TOPICAL DAILY@0400 PRN PRN Reason: Extra cloth needed Stop: 08/22/18 03:59 Dexamethasone Sodium Phosphate (Decadron Inj) 4 mg IV.PUSH Q6HR [facility] Last Admin: 08/17/18 05:54 Dose: 4 mg Dextrose (D50w Vial) 50 ml IV.PUSH UNSCH PRN PRN Reason: PER HYPOGLYCEMIA PROTOCOL Duloxetine HCl (Cymbalta) 30 mg PO BID KATLYN Famotidine (Pepcid Pf Inj) 20 mg IV.PUSH Q12HR KATLYN Glucagon (Glucagon Inj) 1 mg OTHER PRN PRN PRN Reason: for Hypoglycemia Protocol Hydromorphone HCl (Dilaudid Pf Inj) 1 mg IV.PUSH Q4H PRN PRN Reason: PAIN SCALE 6 TO 10 Last Admin: 08/17/18 03:36 Dose: 1 mg Sodium Chloride (Ns Inj) 1,000 mls @ 154 mls/hr IV.CONT .Q6H30M [facility] Last Admin: 08/17/18 01:57 Dose: 154 mls/hr Insulin Aspart (Novolog Insulin Correctional Sugar Inj) 0 unit SQ Q6HR [facility]; Protocol Last Admin: 08/17/18 06:08 Dose: Not Given Insulin Detemir (Levemir Inj) 10 unit SQ BID [facility] Lactulose (Lactulose Liq) 30 ml PO DAILY PRN PRN Reason: SEVERE CONSITIPATION Levothyroxine Sodium (Synthroid) 88 mcg PO DAILY@0600 [facility] Last Admin: 08/17/18 05:10 Dose: Not Given Montelukast Sodium (Singulair) 10 mg PO QPM KATLYN Paroxetine HCl (Paxil) 20 mg PO DAILY [facility] Pravastatin Sodium (Pravachol) 40 mg PO QPM [facility] Senna/Docusate Sodium (Elida-Colace) 1 tab PO BID [facility] Sennosides (Senokot) 17.2 mg PO Q12H PRN PRN Reason: Moderate Constipation Sodium Chloride (Ns Flush) 2 ml IV.FLUSH BID [facility] Sodium Chloride (Ns Flush) 2 ml IV.FLUSH PRN PRN PRN Reason: FLUSH AFTER USING IV ACCESS Temazepam (Restoril) 30 mg PO HS PRN PRN Reason: SLEEP Tiotropium Coolidge (Spiriva 18 Mcg Inh) 18 mcg INH DAILY [facility] Tizanidine HCl (Zanaflex) 4 mg PO TID [facility] Allergies Allergy/AdvReac Type Severity Reaction Status Date / Time No Known Allergies Allergy Verified 08/16/18 22:35 Home Medications Medication Instructions Recorded Confirmed Type albuterol sulfate 1.25 mg INHALATION QID PRN 08/16/18 08/16/18 History clonidine HCl 0.1 mg PO BID 08/16/18 08/16/18 History duloxetine 30 mg PO BID 08/16/18 08/16/18 History duloxetine 30 mg PO BID 08/16/18 08/16/18 History fluticasone-salmeterol [Advair 1 inh INHALATION BID 08/16/18 08/16/18 History Diskus] furosemide 40 mg PO BID 08/16/18 08/16/18 History furosemide 40 mg PO DAILY 08/16/18 08/16/18 History levothyroxine 88 mcg PO DAILY 08/16/18 08/16/18 History levothyroxine 88 mcg PO DAILY 08/16/18 08/16/18 History lisinopril-hydrochlorothiazide 1 tab PO DAILY 08/16/18 08/16/18 History montelukast 10 mg PO QPM 08/16/18 08/16/18 History montelukast 10 mg PO QPM 08/16/18 08/16/18 History naproxen 500 mg PO BID 08/16/18 08/16/18 History omeprazole 40 mg PO DAILY 08/16/18 08/16/18 History oxycodone-acetaminophen 1 tab PO Q4H PRN 08/16/18 08/16/18 History paroxetine HCl 20 mg PO DAILY 08/16/18 08/16/18 History paroxetine HCl 20 mg PO DAILY 08/16/18 08/16/18 History pioglitazone 45 mg PO DAILY 08/16/18 08/16/18 History simvastatin 20 mg PO QPM 08/16/18 08/16/18 History simvastatin 20 mg PO QPM 08/16/18 08/16/18 History sitagliptin-metformin [Janumet] 1 tab PO BID 08/16/18 08/16/18 History temazepam 30 mg PO PRN 08/16/18 History tiotropium bromide [Spiriva with 1 cap INHALATION DAILY 08/16/18 08/16/18 History HandiHaler] tizanidine 4 mg PO TID 08/16/18 08/16/18 History Exam Vital signs: Vital Signs 08/16/18 18:26 08/16/18 22:33 08/17/18 00:17 Temperature 98.9 F Pulse Rate 88 74 85 Respiratory Rate 24 16 Blood Pressure 140/90 172/94 H Pulse Oximetry 95 98 08/17/18 02:21 08/17/18 03:00 08/17/18 03:03 Temperature 98.2 F Pulse Rate 72 Respiratory Rate 20 Blood Pressure 143/68 H 143/68 H Pulse Oximetry 94 L 85 L 92 L 08/17/18 03:04 08/17/18 03:30 08/17/18 04:00 Temperature 98.2 F Pulse Rate 76 124 H Respiratory Rate 21 21 27 H Blood Pressure 162/76 H 157/67 H 157/92 H Pulse Oximetry 93 L 95 92 L 08/17/18 04:29 08/17/18 04:32 08/17/18 05:00 Temperature Pulse Rate 98 H 74 Respiratory Rate 20 18 17 Blood Pressure 155/70 H 141/63 H Pulse Oximetry 88 L 91 L 08/17/18 05:30 08/17/18 06:00 08/17/18 06:09 Temperature Pulse Rate 78 68 64 Respiratory Rate 19 13 17 Blood Pressure 163/72 H 193/82 H 190/81 H Pulse Oximetry 89 L 97 94 L 08/17/18 06:17 08/17/18 06:30 08/17/18 07:00 Temperature Pulse Rate 63 62 67 Respiratory Rate 15 15 18 Blood Pressure 187/76 H 133/64 128/65 Pulse Oximetry 95 94 L 93 L 08/17/18 08:24 Temperature Pulse Rate 57 L Respiratory Rate 16 Blood Pressure Pulse Oximetry 96 Intake & Output 08/16/18 08/17/18 08/17/18 18:59 06:59 18:59 Intake Total 0 / 0 Output Total 700 / 700 Balance -700 / -700 Weight 165.561 kg 165.9 kg Intake: Oral 0 / 0 Output: Urine 700 / 700 Other: Date of Last Bowel Movement 08/15/18 Weight On Admission 165.561 kg - Constitutional no acute distress, morbidly obese - Routine HEENT Exam Head: Present: normocephalic, atraumatic Eye: Present: EOMI, PERRL ENT: Present: mucous membranes dry, oropharynx clear, external ear normal - Routine Neck Exam Present: supple - Routine Respiratory Exam Present: rhonchi - Routine Cardiovascular Exam Present: RRR, S1, S2 - Routine Abdominal Exam Present: soft, normoactive bowel sounds - Routine Extremities Exam Present: tenderness, joint swelling - Routine Skin Exam Present: petechiae, ecchymosis - Routine Neurological Exam Present: oriented X3, CN II-XII intact, sensory deficit (Decreased sensation distally in her upper extremities and hands with associated paresthesias and also in a stocking format in the lower extremities), motor deficit (Left deltoid , triceps, hand intrinsic 2/5 and left biceps 3/5; right deltoid biceps triceps 3/5, hand intrinsics 2/5; lower extremities she has more proximally 2/5 and distally dorsiflexion plantar flexion 3/5), normal reflexes (Diminished reflexes related to diabetic neuropathy), clonus, normal speech Results - Laboratory Findings CBC and BMP: 08/16/18 22:50 08/16/18 22:50 Abnormal lab findings: Abnormal Labs 08/16/18 08/16/18 08/16/18 22:50 22:50 22:50 Eos % (Auto) 4.4 H BUN 21 H Creatinine 1.36 H Estimated GFR 40 L POC Glucose Troponin I Less than 0.02 L Albumin 2.9 L Ur Leukocyte Esterase Small H Urine Bacteria Rare H Urine Mucus Few H 08/17/18 05:58 Eos % (Auto) BUN Creatinine Estimated GFR POC Glucose 162 H Troponin I Albumin Ur Leukocyte Esterase Urine Bacteria Urine Mucus - Diagnostic Findings Additional findings: Impressions Lumbar Spine MRI 08/16/18 22:50 CONCLUSION: Multilevel degenerative disc disease with moderate stenosis at L4-L5 secondary to disc bulge and posterior element hypertrophy. Left-sided protrusion at L5-S1, compromising the exiting left L5 nerve root Thoracic Spine MRI 08/16/18 22:50 CONCLUSION: 1. Mild multilevel degenerative disc disease as above without evidence of stenosis. Cervical Spine MRI 08/17/18 22:48 CONCLUSION: Extruded disc fragment at C3-C4 eccentric to the right causing severe spinal canal stenosis with associated cord edema. There is a central to right-sided disc protrusion at C5-C6 compromising the nerve root exit zone. Assessment and Plan - Assessment (1) Cervical spinal cord injury Code(s): S14.109A - Unspecified injury at unspecified level of cervical spinal cord, initial encounter Status: Acute (2) Stenosis of cervical spine with myelopathy Code(s): M47.12 - Other spondylosis with myelopathy, cervical region Status: Chronic (3) Chronic incomplete quadriplegia Code(s): G82.50 - Quadriplegia, unspecified Status: Acute - Plan 58-year-old morbidly obese female with a severe C3-4 spinal stenosis from disc osteophyte complex associated cord contusion/myelomalacia with progressive weakness and incontinence with multiple falls and unsteadiness in her gait for the past month. Recommend anterior C3-4 microdiscectomy/partial corpectomies with interbody fusion and plate placement. The risks and benefits involved were discussed and no guarantees given. Given her morbid obesity and occasions are at least in the moderate range. She understands and requests that we proceed. Hold her Lovenox in anticipation of surgery today. Continue with short course of Decadron with insulin sliding scale coverage. She will require extended rehabilitation subsequently with occupational physical therapy.
--- NOTE | 2018-08-17 09:49 | XR ---
EXAM DATE: 08/17/2018 12:00 AM EDT AGE/SEX: 58 years / Female INDICATIONS: Eval diaphragm, pre op back surgery today. CLINICAL DATA: This is the patient's initial encounter. Patient reports that signs and symptoms have been present for 3 days and indicates a pain score of 0/10. MEDICAL/SURGICAL HISTORY: Chronic obstructive pulmonary disease. Diabetes mellitus type II. hy pertension . ovary sx. COMPARISON: No prior exams available for comparison. FINDINGS: There is mild vascular congestion and interstitial prominence. No evidence of alveolar consolidation or significant effusion. CONCLUSION: Mild vascular congestion and interstitial prominence Electronically signed by: Samuel Holcomb MD 08/17/2018 9:47 AM EDT
[2018-08-17] MEDS: Insulin Detemir Inj 1,000 UNIT/10 ML Vial SQ SCH ×2 (10:16→20:59)
[2018-08-17] MEDS: Famotidine PF Inj 20 MG/2 ML Vial IV.PUSH SCH ×2 (10:16→20:59)
[2018-08-17] MEDS: Senna/Docusate Sodium 8.6/50 MG Tablet PO SCH ×2 (10:17→20:59)
[2018-08-17] MEDS ORDERED: Ketamine Inj 50 MG/5 ML Syringe IV.PUSH ONE (13:08)
[2018-08-17] MEDS ORDERED: Propofol Inj 500 MG/50 ML Vial ONE ×2 (13:08→15:20)
[2018-08-17] MEDS ORDERED: Lidocaine PF 1% Inj 5 ML Syringe OTHER ONE (13:16)
[2018-08-17] MEDS ORDERED: Normosol-R pH 7.4 Inj 1,000 ML IV.CONT ONE (13:16)
[2018-08-17] MEDS ORDERED: Phenylephrine/NS 1000 MCG/10ML Syringe IV.PUSH ONE (13:16)
[2018-08-17] MEDS: Tiotropium Bromide 18 MCG/ACT Inhaler INH SCH (13:27)
[2018-08-17] MEDS ORDERED: Gelatin Size 100 Topical Foam ONE (13:27)
[2018-08-17] MEDS: Budesonide-Formoterol 160/4.5 MCG 6 GM Inhaler INH SCH ×2 (13:27→21:08)
[2018-08-17] MEDS ORDERED: Bupivacaine/Epinephrine 0.5% Inj 50 ML Vial ONE (13:27)
[2018-08-17] MEDS ORDERED: Thrombin Topical Soln 5,000 UNIT Vial TOPICAL ONE ×2 (13:27→15:33)
[2018-08-17] MEDS ORDERED: fentaNYL Citrate Inj 100 MCG/2 ML Ampul ONE (15:34)
--- NOTE | 2018-08-17 16:40 | P.OP ---
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 Wise catheter and sequential compression devices were placed in supine position on a Wilder table and all pressure points adequately padded. The head secured on a donut and anterior cervical region then shaved and prepped with Chloraprep and sterilely draped with Ioban along with the usual sterile draping. A transverse skin incision on the left side of the neck was then made after infiltrating the skin with 0.5% Marcaine with epinephrine solution extending down through the platysma. At the anterior border of the sternocleidomastoid further dissection was undertaken developing a plane between the carotid sheath laterally and the trachea esophagus medially. The prevertebral fascia was exposed and dissected out. The medial attachments of the longus colli muscles were detached and a self-retaining retractor used for exposure. The C3-4 disc space was localized with a marking the disc space and using lateral fluoroscopy. Boynton distraction screws 14 mm length were placed one in the C3 and one in the C4 body interbody distraction and exposure. There was disc degeneration with disc height collapse and anterior osteophytes noted at the C3-4 level and the osteophytes were resected with a Leksell and annulus incised with a 15 blade and further dissection undertaken using microtechnique with microscope magnification. Diskectomy was undertaken with pituitaries and the endplates were also decorticated with curettes and drill bit. And more posteriorly there was disk osteophyte complex along with the segmental ossification of the posterior longitudinal ligament severely compressing the thecal sac along with a significant uncovertebral joint hypertrophy with foraminal stenosis which was decompressed along with removal of the posterior longitudinal ligaments at both levels. The ossified posterior longitudinal ligament was also adherent to the dura and there within areas of dura noted to the dissection and decompression but no CSF leak was encountered. The foramen was decompressed bilaterally using a Kerrison's and palpation with a nerve hook, the exiting nerve roots were felt to be free. In order to decompress the spinal canal partial C3 and C4 corpectomies had to be undertaken with removal of the inferior half of the C3 and superior half of the C4 vertebral bodies. The area was then copiously irrigated. Compressed Gelfoam placed over lying the thin dura. I then placed a Peek cage packed with local autograft bone at the C3-4 interspace under fluoroscopy guidance. Boynton distraction pins were removed and the holes plugged with Gelfoam for hemostasis. In order to facilitate the fusion and provide stabilization, a Precision spine cervical Uniplate was then placed with 16 mm variable angle screws in the C3 body and 16 mm fixed angle screws in the C4 body. The plate screw locking mechanism was then engaged. AP and lateral fluoroscopy confirmed good placement of the construct and the retractor was then removed. Muscular bleeding points were cauterized with bipolar cautery and Gelfoam was then also used for hemostasis which was removed. The platysma was then approximated using 3-0 Vicryl interrupted stitches and 3-0 Vicryl subcuticular stitch also placed in an interrupted fashion, and final skin closure was with Mastisol and Steri- Strips. Sterile dressing was then applied. The neck immobilized in a [place] J collar and the patient was then extubated and taken to the recovery room. There are no intraoperative complications and all sponge and needle counts were correct at the end of procedure. Estimated blood loss was about 100 cc. The patient did undergo intraoperative neurologic monitoring which remained stable throughout the surgery.
[2018-08-17] MEDS ORDERED: Potassium Chlor 20 mEq Premix 20 MEQ/100 ML PIGGYBACK IV.SIG PRN (16:47)
[2018-08-17] MEDS ORDERED: Aluminum/Magnesium/Simethacone Susp 30 ML UDC PO PRN (16:47)
[2018-08-17] MEDS ORDERED: Menthol 5.8 MG Lozenge BUCCAL PRN (16:47)
[2018-08-17] MEDS ORDERED: Calcium Gluconate Inj 1 GM in Sodium Chlor 0.9% Inj 100 ML IV.SIG PRN (16:47)
[2018-08-17] MEDS ORDERED: Magnesium Sulfate Inj 2 GM in Sodium Chlor 0.9% Inj 96 ML IV.SIG PRN (16:47)
[2018-08-17] MEDS ORDERED: *Meperidine Inj 25 MG/ML Vial PERIprocedural Use ONLY ONE (16:49)
[2018-08-17] MEDS ORDERED: *Enalaprilat Inj 1.25 MG/ML Vial IV.PUSH ONE (17:03)
--- NOTE | 2018-08-17 17:03 | XR ---
EXAM DATE: 08/17/2018 12:00 AM EDT AGE/SEX: 58 years / Female INDICATIONS: Anterior Cervical fusion of C3 and C4. CLINICAL DATA: This is the patient's subsequent encounter. Patient reports that signs and symptoms h ave been present for 1 week and indicates a pain score of Nonresponsive. MEDICAL/SURGICAL HISTORY: . Hypertension. Diabetes mellitus type II. . Ovary removed. COMPARISON: No prior exams available for comparison. FINDINGS: Spot intraoperative fluoroscopic frontal and lateral views of the cervical spine demonstrate ACDF kavitha dware and intervertebral fusion hardware placement at C3-4. Endotracheal tube and presumed temperatur e probe are also noted. CONCLUSION: C3-4 fusion hardware placement. Electronically signed by: Layo Villalba MD 08/17/2018 5:01 PM EDT
[2018-08-17] MEDS: Montelukast 10 MG Tablet PO SCH (18:35)
[2018-08-17] MEDS: Labetalol HCl Inj 100 MG/20 ML Vial IV.PUSH PRN ×2 (19:06→23:15)
[2018-08-18] MEDS: Labetalol HCl Inj 100 MG/20 ML Vial IV.PUSH PRN ×6 (00:15→21:00)
[2018-08-18] MEDS: HYDROmorphone PF Inj 2 MG/ML Vial IV.PUSH PRN ×3 (01:04→20:17)
[2018-08-18] MEDS: Chlorhexidine Gluconate 2% 1 Pack (2 Cloths) TOPICAL SCH (03:16)
[2018-08-18 04:51] LABS: Hematocrit 38.8 % (35.0-46.0); Lymph # (Auto) 0.6 th/mm3 (1.0-4.8); Lymph % (Auto) 5.2 % (9.0-44.0); Mean Corpuscular HGB Conc 33.5 % (32.0-36.0); Mean Corpuscular Hemoglobin 32.7 pg (27.0-34.0); Mean Corpuscular Volume 97.6 fL (80.0-100.0); Mono # (Auto) 0.2 th/mm3 (0.0-0.9); Mono % (Auto) 1.9 % (0.0-8.0); Neut # (Auto) 11.3 th/mm3 (1.8-7.7); Neut % (Auto) 92.9 % (16.0-70.0); Platelet Count 266 th/mm3 (150-450); Red Blood Count 3.97 mil/mm3 (4.00-5.30); Red Cell Distribution Width 14.5 % (11.6-17.2); White Blood Count 12.1 th/mm3 (4.0-11.0)
[2018-08-18 04:57] LABS: Activated Partial Thrombo Time 25.1 sec (24.3-30.1); Prothrombin Time 10.6 sec (9.8-11.6)
[2018-08-18] MEDS: Sod Chloride 0.9% Inj 1,000 ML IV.CONT SCH ×2 (05:06→10:33)
[2018-08-18 05:18] LABS: Alanine Aminotransferase 16 U/L (10-53); Albumin 2.8 g/dL (3.4-5.0); Anion Gap 4 meq/L (5-15); Aspartate Aminotransferase 18 U/L (15-37); Blood Urea Nitrogen 13 mg/dL (7-18); Calcium 9.3 mg/dL (8.5-10.1); Carbon Dioxide 29.8 meq/L (21.0-32.0); Chloride 106 meq/L (98-107); Glomerular Filtration Rate 69 mL/min (>89); Glucose,Random 151 mg/dL (74-106); Magnesium 1.7 mg/dL (1.5-2.5); Potassium 4.6 meq/L (3.5-5.1); Sodium 140 meq/L (136-145)
[2018-08-18 05:21] LABS: Alkaline Phosphatase 87 U/L (45-117); Total Protein 6.9 g/dL (6.4-8.2)
[2018-08-18] MEDS: Insulin NovoLOG Aspart Correctional Sugar Inj SQ SCH ×4 (05:30→23:17)
[2018-08-18] MEDS: Levothyroxine 88 MCG Tablet PO SCH (05:32)
[2018-08-18] MEDS: Morphine Inj 4 MG/ML Vial IV.PUSH PRN ×2 (07:34→18:42)
--- NOTE | 2018-08-18 08:24 | P.PNCC ---
Subjective Subjective Remarks/Hospital Course: 08/17: 58-year-old female with a history of spinal stenosis and diabetic neuropathy presents with acute onset of bilateral arm and leg weakness for the past 4 days. States that she was previously able to stand and walk but has been unable to do so for the past 4 days. Also difficulty gripping utensils with hands. Has had several falls due to leg weakness resulting in bruising on extremities, no head trauma. Has a long history of diabetic neuropathy in both legs, states chronic numbness in both legs. However, does report that flexion of head results in "electric shock" sensation running down legs to knees as of the past few days. Patient urinary incontinence for a month with regular leakage of urine especially on standing. Some bowel incontinence which patient relates to inability to physically reach restroom in time. No chest pain, increase of baseline SOB, vision changes, slurred speech. Presented to ED in [place] twice over the last several days related to these complaints reportedly without relief of symptoms or clear diagnosis. The MRI of the C- spine shows Extruded disc fragment at C3-C4 eccentric to the right causing severe spinal canal stenosis with associated cord edema. This was discussed by ED attending with the neurosurgeon pigeon fancier with recommendations of IV steroids and conservative management at this time. 08/18: Patient underwent Anterior cervical C3-4 interbody fusion; C3 and C4 partial corpectomies; anterior C3-4 cervical plate placement; C3-4 interbody cage placement; microsurgical technique on 08/[address] Kam. Objective Vital Signs / I&O: Vital Signs 08/17/18 08:24 08/17/18 08:56 08/17/18 09:00 Temperature Pulse Rate 57 L 77 81 Respiratory Rate 16 21 28 H Blood Pressure 140/67 Pulse Oximetry 96 95 95 08/17/18 10:00 08/17/18 10:50 08/17/18 11:00 Temperature 98.9 F Pulse Rate 68 71 79 Respiratory Rate 14 20 33 H Blood Pressure 153/72 H Pulse Oximetry 96 95 95 08/17/18 11:03 08/17/18 11:25 08/17/18 11:26 Temperature Pulse Rate 71 Respiratory Rate 17 16 Blood Pressure 152/72 H Pulse Oximetry 94 L 95 08/17/18 12:00 08/17/18 13:00 08/17/18 16:43 Temperature 99.3 F Pulse Rate 65 68 104 H Respiratory Rate 16 16 20 Blood Pressure 164/77 H 158/68 H 174/89 H Pulse Oximetry 96 95 88 L 08/17/18 17:00 08/17/18 17:15 08/17/18 17:30 Temperature 99 F Pulse Rate 93 H 97 H 87 Respiratory Rate 15 16 18 Blood Pressure 180/61 H 171/72 H 169/72 H Pulse Oximetry 98 95 94 L 08/17/18 17:35 08/17/18 17:36 08/17/18 18:00 Temperature 97.7 F Pulse Rate 81 81 Respiratory Rate 24 18 Blood Pressure 177/77 H Pulse Oximetry 93 L 93 L 08/17/18 19:00 08/17/18 19:24 08/17/18 20:00 Temperature 98.3 F Pulse Rate 81 75 76 Respiratory Rate 22 16 16 Blood Pressure 192/86 H 192/86 H Pulse Oximetry 94 L 94 L 92 L 08/17/18 21:00 08/17/18 22:00 08/17/18 23:00 Temperature Pulse Rate 81 78 80 Respiratory Rate 14 19 17 Blood Pressure 151/69 H 164/74 H 175/75 H Pulse Oximetry 91 L 93 L 94 L 08/17/18 23:07 08/18/18 00:00 08/18/18 01:00 Temperature 98.1 F Pulse Rate 76 64 65 Respiratory Rate 16 14 14 Blood Pressure 173/72 H 163/72 H Pulse Oximetry 93 L 91 L 08/18/18 02:00 08/18/18 02:02 08/18/18 03:00 Temperature Pulse Rate 66 62 Respiratory Rate 14 14 19 Blood Pressure 168/72 H 166/58 H Pulse Oximetry 93 L 91 L 08/18/18 03:26 08/18/18 04:00 08/18/18 05:00 Temperature 98.5 F Pulse Rate 66 67 65 Respiratory Rate 16 19 14 Blood Pressure 174/72 H 163/67 H Pulse Oximetry 91 L 94 L 08/18/18 06:00 08/18/18 07:55 Temperature Pulse Rate 61 67 Respiratory Rate 21 20 Blood Pressure 169/71 H Pulse Oximetry 92 L 94 L Intake & Output 08/17/18 08/18/18 08/18/18 18:59 06:59 18:59 Intake Total 2220 / 2220 3320 / 3320 Output Total 1300 / 1300 1550 / 1550 Balance 920 / 920 1770 / 1770 Weight 165.561 kg Intake: IV 1000 / 1000 3200 / 3200 NS + KCl 20 mEq Inj 1,000 ML @ 1000 / 1000 0 mls/hr IV.CONT .STK-MED ONE Rx#:[id number] NS Inj 1,000 ML @ 154 mls/hr IV 1000 / 1000 1999 / 1999 .CONT .Q6H30M JOYCE Rx#:[id number] Ancef Inj 1,000 MG In NS Inj 200 / 200 100 ML @ 200 mls/hr IV.SIG Q8H JOYCE Rx#:[id number] Oral 120 / 120 120 / 120 Anesthesia Amount 1100 / 1100 Output: Estimated Blood Loss 50 / 50 Urine Amount (Catheter) 1250 / 1250 1550 / 1550 Female External 500 / 500 1550 / 1550 Indwelling Urethral Catheter 750 / 750 Other: Date of Last Bowel Movement 08/15/18 08/15/18 # Bowel Movements 0 Result Diagrams: 08/18/18 03:34 08/18/18 03:34 Objective Remarks: - Routine HEENT Exam Head: Present: normocephalic, atraumatic Eye: Present: PERRL, normal accommodation ENT: Present: mucous membranes moist - Routine Neck Exam Dressing over surgical site, [place] J collar in place - Routine Respiratory Exam Absent: accessory muscle use, rales, respiratory distress - Routine Cardiovascular Exam Present: RRR, S1, S2. Absent: murmur, gallop, rubs - Routine Abdominal Exam Present: soft, normoactive bowel sounds. Absent: tenderness, distended - Routine Extremities Exam Present: edema. Absent: cyanosis, clubbing Comments: Extreme weakness in both lower extremities bilaterally, loss of sensation bilaterally with down, strength 4 out of 5 in upper extremities bilaterally, no sensation deficit. - Routine Skin Exam Present: intact. Absent: cyanosis, erythema Assessment and Plan - Assessment and Plan Plan: C3-C4 spinal stenosis -Due to Extruded disc fragment -with associated cord edema. -s/p Anterior cervical C3-4 interbody fusion; C3 and C4 partial corpectomies; anterior C3-4 cervical plate placement; C3-4 interbody cage placement; microsurgical technique on 08/17-Dr. Kam following -IV steroids -Keep MAP 85-90 -Further management per neurosurgery Urinary incontinence -Due to above -Wise COPD -DuoNeb scheduled and as needed -Symbicort - Singulair -Spiriva Depression -Cymbalta -Paroxetine Hypothyroidism -Levothyroxine Dyslipidemia -Pravastatin Diabetes mellitus -Hold p.o. meds while in the ICU -Levemir twice daily -Insulin sliding scale Hypertension -Permissive hypertension for spinal cord perfusion -Map goal 85-90 DVT GI prophylaxis -Teds SCDs -Lovenox -Pepcid
--- NOTE | 2018-08-18 08:25 | ECG ---
Date Performed: 08/17/2018 Time Performed: 04:02:52 PTAGE: 58 years EKG: Wide complex tachycardia of uncertain etiology, likely atrial flutter or possibly Sinus rhy thm with Right bundle branch block but ventricular tachycardia needs to be excluded. There also appears to be inferolateral and anterolateral ST changes. Clinical correlation is recommended Recommend repea t ekg at a slower rate Abnormal ECG NO PREVIOUS TRACING DOCTOR: Alber Rehman Interpretating Date/Time 08/18/2018 08:22:56
[2018-08-18] MEDS: Senna/Docusate Sodium 8.6/50 MG Tablet PO SCH ×2 (09:07→20:18)
[2018-08-18] MEDS: Famotidine PF Inj 20 MG/2 ML Vial IV.PUSH SCH ×2 (09:07→20:17)
[2018-08-18] MEDS: Budesonide-Formoterol 160/4.5 MCG 6 GM Inhaler INH SCH ×2 (09:08→20:18)
[2018-08-18] MEDS: Tiotropium Bromide 18 MCG/ACT Inhaler INH SCH (09:08)
[2018-08-18] MEDS: Insulin Detemir Inj 1,000 UNIT/10 ML Vial SQ SCH ×2 (10:25→20:18)
[2018-08-18] MEDS: amLODIPine 10 MG Tablet PO SCH (11:31)
[2018-08-18] MEDS: Montelukast 10 MG Tablet PO SCH (18:42)
[2018-08-18] MEDS: hydrALAZINE HCl Inj 20 MG/ML Vial IV.PUSH PRN ×2 (19:04→23:16)
--- NOTE | 2018-08-18 19:33 | P.PNNS ---
Subjective Interval history: Did well overnight, strength improved in arms/hands Physical Exam Vital signs: Vital Signs 08/17/18 20:00 08/17/18 20:40 08/17/18 20:45 Temperature 98.3 F Pulse Rate 76 81 85 Respiratory Rate 16 29 H 30 H Blood Pressure 192/86 H 168/66 H 149/66 H Pulse Oximetry 92 L 90 L 94 L 08/17/18 21:00 08/17/18 22:00 08/17/18 22:04 Temperature Pulse Rate 77 78 75 Respiratory Rate 14 19 13 Blood Pressure 151/69 H 190/76 H 164/74 H Pulse Oximetry 91 L 93 L 94 L 08/17/18 23:00 08/17/18 23:01 08/17/18 23:07 Temperature Pulse Rate 80 76 76 Respiratory Rate 17 23 16 Blood Pressure 175/75 H 190/76 H Pulse Oximetry 94 L 95 08/18/18 00:00 08/18/18 00:03 08/18/18 01:00 Temperature 98.1 F Pulse Rate 66 66 65 Respiratory Rate 15 14 15 Blood Pressure 183/72 H 173/72 H 163/72 H Pulse Oximetry 93 L 93 L 95 08/18/18 02:00 08/18/18 02:01 08/18/18 02:02 Temperature Pulse Rate 66 66 Respiratory Rate 20 17 14 Blood Pressure 177/104 H 168/72 H Pulse Oximetry 93 L 94 L 08/18/18 03:00 08/18/18 03:05 08/18/18 03:26 Temperature Pulse Rate 65 65 66 Respiratory Rate 16 19 16 Blood Pressure 177/89 H 166/55 H Pulse Oximetry 94 L 93 L 08/18/18 04:00 08/18/18 05:00 08/18/18 06:00 Temperature 98.5 F Pulse Rate 66 63 63 Respiratory Rate 20 16 15 Blood Pressure 174/72 H 163/67 H 169/71 H Pulse Oximetry 92 L 93 L 91 L 08/18/18 07:00 08/18/18 07:02 08/18/18 07:03 Temperature Pulse Rate 63 60 60 Respiratory Rate 15 14 15 Blood Pressure 211/78 H 196/83 H Pulse Oximetry 94 L 95 94 L 08/18/18 07:28 08/18/18 07:36 08/18/18 07:44 Temperature Pulse Rate 67 76 Respiratory Rate 29 H 13 56 H Blood Pressure 202/88 H 186/92 H Pulse Oximetry 95 91 L 08/18/18 07:55 08/18/18 08:00 08/18/18 08:46 Temperature 98.2 F Pulse Rate 67 62 60 Respiratory Rate 20 22 15 Blood Pressure 193/79 H 180/109 H Pulse Oximetry 94 L 95 91 L 08/18/18 08:47 08/18/18 09:00 08/18/18 09:05 Temperature Pulse Rate 61 58 L 57 L Respiratory Rate 14 14 15 Blood Pressure 205/82 H 201/130 H Pulse Oximetry 93 L 92 L 91 L 08/18/18 09:20 08/18/18 09:35 08/18/18 10:00 Temperature Pulse Rate 66 69 65 Respiratory Rate 17 29 H 25 H Blood Pressure 199/79 H 184/86 H Pulse Oximetry 94 L 94 L 92 L 08/18/18 10:05 08/18/18 10:35 08/18/18 11:00 Temperature Pulse Rate 63 57 L 59 L Respiratory Rate 28 H 15 17 Blood Pressure 136/62 140/65 Pulse Oximetry 95 94 L 96 08/18/18 11:05 08/18/18 11:14 08/18/18 12:00 Temperature 98.4 F Pulse Rate 62 66 69 Respiratory Rate 17 18 29 H Blood Pressure 151/65 H 159/75 H Pulse Oximetry 96 97 97 08/18/18 12:42 08/18/18 13:00 08/18/18 13:17 Temperature Pulse Rate 64 61 Respiratory Rate 24 19 17 Blood Pressure 170/79 H Pulse Oximetry 98 96 08/18/18 14:00 08/18/18 15:00 08/18/18 16:00 Temperature Pulse Rate 62 62 64 Respiratory Rate 28 H 19 16 Blood Pressure Pulse Oximetry 96 96 98 08/18/18 16:23 08/18/18 17:00 08/18/18 17:02 Temperature Pulse Rate 60 65 63 Respiratory Rate 22 17 26 H Blood Pressure 186/77 H Pulse Oximetry 98 98 08/18/18 18:00 08/18/18 18:09 08/18/18 18:44 Temperature Pulse Rate 62 66 Respiratory Rate 16 46 H 18 Blood Pressure 183/83 H Pulse Oximetry 97 98 Intake & Output 08/18/18 08/18/18 08/19/18 06:59 18:59 06:59 Intake Total 3320 / 3320 480 / 480 Output Total 1550 / 1550 1200 / 1200 Balance 1770 / 1770 -720 / -720 Weight 165.561 kg Intake: IV 3200 / 3200 NS + KCl 20 mEq Inj 1,000 ML @ 1000 / 1000 0 mls/hr IV.CONT .STK-MED ONE Rx#:[id number] NS Inj 1,000 ML @ 154 mls/hr IV 1999 / 1999 .CONT .Q6H30M JOYCE Rx#:[id number] Ancef Inj 1,000 MG In NS Inj 200 / 200 100 ML @ 200 mls/hr IV.SIG Q8H JOYCE Rx#:[id number] Oral 120 / 120 480 / 480 Output: Urine Amount (Catheter) 1550 / 1550 1200 / 1200 Female External 1550 / 1550 Indwelling Urethral Catheter 1200 / 1200 Other: Date of Last Bowel Movement 08/15/18 08/15/18 # Bowel Movements 0 Narrative: A&O x [address] Strength 4/5 upper extremities including down to hands, [place] 4+ Feels improved - Urinary Catheter Management Indwelling Urethral Catheter Cath placed during this visit: yes Reason for continuing: Hourly intake/output Insertion date: 08/17/18 Female External Cath placed during this visit: no Assessment and Plan - Assessment (1) Cervical spinal cord injury Code(s): S14.109A - Unspecified injury at unspecified level of cervical spinal cord, initial encounter Status: Acute (2) Stenosis of cervical spine with myelopathy Code(s): M47.12 - Other spondylosis with myelopathy, cervical region Status: Chronic (3) Chronic incomplete quadriplegia Code(s): G82.50 - Quadriplegia, unspecified Status: Acute - Plan 58-year-old morbidly obese female s/p C3/4 partial corpectomy ACDF on 08/17/18. PT- mobilize w/ collar - OT Anticipate rehab given significant preop weakness, she is improving after surgery
[2018-08-19] MEDS: HYDROmorphone PF Inj 2 MG/ML Vial IV.PUSH PRN ×3 (00:48→20:56)
[2018-08-19] MEDS: Sod Chloride 0.9% Inj 1,000 ML IV.CONT SCH ×3 (02:06→16:16)
[2018-08-19] MEDS: Chlorhexidine Gluconate 2% 1 Pack (2 Cloths) TOPICAL SCH (05:45)
[2018-08-19] MEDS: Insulin NovoLOG Aspart Correctional Sugar Inj SQ SCH ×3 (05:46→18:47)
[2018-08-19] MEDS: Levothyroxine 88 MCG Tablet PO SCH (05:46)
[2018-08-19] MEDS: Senna/Docusate Sodium 8.6/50 MG Tablet PO SCH ×2 (09:03→20:54)
[2018-08-19] MEDS: Famotidine PF Inj 20 MG/2 ML Vial IV.PUSH SCH ×2 (09:03→20:55)
[2018-08-19] MEDS: amLODIPine 10 MG Tablet PO SCH (09:03)
[2018-08-19] MEDS: Budesonide-Formoterol 160/4.5 MCG 6 GM Inhaler INH SCH ×2 (09:05→21:13)
[2018-08-19] MEDS: Tiotropium Bromide 18 MCG/ACT Inhaler INH SCH (09:05)
--- NOTE | 2018-08-19 09:11 | P.PNCC ---
Subjective Subjective Remarks/Hospital Course: 08/17: 58-year-old female with a history of spinal stenosis and diabetic neuropathy presents with acute onset of bilateral arm and leg weakness for the past 4 days. States that she was previously able to stand and walk but has been unable to do so for the past 4 days. Also difficulty gripping utensils with hands. Has had several falls due to leg weakness resulting in bruising on extremities, no head trauma. Has a long history of diabetic neuropathy in both legs, states chronic numbness in both legs. However, does report that flexion of head results in "electric shock" sensation running down legs to knees as of the past few days. Patient urinary incontinence for a month with regular leakage of urine especially on standing. Some bowel incontinence which patient relates to inability to physically reach restroom in time. No chest pain, increase of baseline SOB, vision changes, slurred speech. Presented to ED in [place] twice over the last several days related to these complaints reportedly without relief of symptoms or clear diagnosis. The MRI of the C- spine shows Extruded disc fragment at C3-C4 eccentric to the right causing severe spinal canal stenosis with associated cord edema. This was discussed by ED attending with the neurosurgeon sound engineer audio control with recommendations of IV steroids and conservative management at this time. 08/18: Patient underwent Anterior cervical C3-4 interbody fusion; C3 and C4 partial corpectomies; anterior C3-4 cervical plate placement; C3-4 interbody cage placement; microsurgical technique on 08/[address] Kam. 08/19: Comfortably in bed. Can move lower extremities however bilateral lower extremity weakness still present Objective Vital Signs / I&O: Vital Signs 08/18/18 09:20 08/18/18 09:35 08/18/18 10:00 Temperature Pulse Rate 66 69 65 Respiratory Rate 17 29 H 25 H Blood Pressure 199/79 H 184/86 H Pulse Oximetry 94 L 94 L 92 L 08/18/18 10:05 08/18/18 10:35 08/18/18 11:00 Temperature Pulse Rate 63 57 L 59 L Respiratory Rate 28 H 15 17 Blood Pressure 136/62 140/65 Pulse Oximetry 95 94 L 96 08/18/18 11:05 08/18/18 11:14 08/18/18 12:00 Temperature 98.4 F Pulse Rate 62 66 69 Respiratory Rate 17 18 29 H Blood Pressure 151/65 H 159/75 H Pulse Oximetry 96 97 97 08/18/18 12:42 08/18/18 13:00 08/18/18 13:17 Temperature Pulse Rate 64 61 Respiratory Rate 24 19 17 Blood Pressure 170/79 H Pulse Oximetry 98 96 08/18/18 14:00 08/18/18 15:00 08/18/18 16:00 Temperature Pulse Rate 62 62 64 Respiratory Rate 28 H 19 16 Blood Pressure Pulse Oximetry 96 96 98 08/18/18 16:23 08/18/18 17:00 08/18/18 17:02 Temperature Pulse Rate 60 65 63 Respiratory Rate 22 17 26 H Blood Pressure 186/77 H Pulse Oximetry 98 98 08/18/18 18:00 08/18/18 18:09 08/18/18 18:44 Temperature Pulse Rate 62 66 Respiratory Rate 16 46 H 18 Blood Pressure 183/83 H Pulse Oximetry 97 98 08/18/18 19:00 08/18/18 19:56 08/18/18 20:00 Temperature 98.3 F Pulse Rate 64 65 72 Respiratory Rate 18 17 18 Blood Pressure 201/86 H 169/73 H Pulse Oximetry 97 95 97 08/18/18 21:00 08/18/18 22:00 08/18/18 23:00 Temperature Pulse Rate 62 60 63 Respiratory Rate 20 22 16 Blood Pressure 177/75 H 176/73 H 181/72 H Pulse Oximetry 95 96 95 08/18/18 23:42 08/19/18 00:00 08/19/18 01:00 Temperature 98.6 F Pulse Rate 75 74 74 Respiratory Rate 17 23 18 Blood Pressure 175/72 H 160/69 H Pulse Oximetry 97 95 08/19/18 02:00 08/19/18 02:05 08/19/18 03:00 Temperature Pulse Rate 76 84 Respiratory Rate 18 18 21 Blood Pressure 165/71 H 160/68 H Pulse Oximetry 94 L 97 08/19/18 04:00 08/19/18 05:00 08/19/18 06:00 Temperature 98.3 F Pulse Rate 76 62 63 Respiratory Rate 18 20 18 Blood Pressure 163/75 H 161/72 H 162/69 H Pulse Oximetry 99 99 97 08/19/18 07:50 Temperature Pulse Rate 76 Respiratory Rate 23 Blood Pressure Pulse Oximetry 95 Intake & Output 08/18/18 08/19/18 08/19/18 18:59 06:59 18:59 Intake Total 480 / 480 480 / 480 Output Total 1200 / 1200 Balance -720 / -720 480 / 480 Weight 165.561 kg Intake: Oral 480 / 480 480 / 480 Output: Urine Amount (Catheter) 1200 / 1200 Indwelling Urethral Catheter 1200 / 1200 Other: # Incontinent Voids 2 Date of Last Bowel Movement 08/15/18 08/15/18 # Bowel Movements 0 Result Diagrams: 08/18/18 03:34 08/18/18 03:34 Objective Remarks: - Routine HEENT Exam Head: Present: normocephalic, atraumatic Eye: Present: PERRL, normal accommodation ENT: Present: mucous membranes moist - Routine Neck Exam Dressing over surgical site, [place] J collar in place - Routine Respiratory Exam Absent: accessory muscle use, rales, respiratory distress - Routine Cardiovascular Exam Present: RRR, S1, S2. Absent: murmur, gallop, rubs - Routine Abdominal Exam Present: soft, normoactive bowel sounds. Absent: tenderness, distended - Routine Extremities Exam Present: edema. Absent: cyanosis, clubbing Comments: Grade 3-4 power in both lower extremities bilaterally, loss of sensation bilaterally with down, strength 4 out of 5 in upper extremities bilaterally, no sensation deficit. - Routine Skin Exam Present: intact. Absent: cyanosis, erythema Assessment and Plan - Assessment and Plan Plan: C3-C4 spinal stenosis -Due to Extruded disc fragment -with associated cord edema. -s/p Anterior cervical C3-4 interbody fusion; C3 and C4 partial corpectomies; anterior C3-4 cervical plate placement; C3-4 interbody cage placement; microsurgical technique on 08/17-Dr. Kam following -IV steroids -Further management per neurosurgery Urinary incontinence -Due to above -Wise COPD -DuoNeb scheduled and as needed -Symbicort - Singulair -Spiriva Depression -Cymbalta -Paroxetine Hypothyroidism -Levothyroxine Dyslipidemia -Pravastatin Diabetes mellitus -Hold p.o. meds while in the ICU -Levemir twice daily -Insulin sliding scale Hypertension -Currently allowing map to right higher. DVT GI prophylaxis -Teds SCDs -Lovenox -Pepcid Consult and transfer to hospitalist service for further medical management.
[2018-08-19] MEDS: Insulin Detemir Inj 1,000 UNIT/10 ML Vial SQ SCH ×2 (09:51→20:55)
--- NOTE | 2018-08-19 11:11 | P.PNNS ---
Subjective Interval history: Did well overnight, strength improving, in good spirits Physical Exam Vital signs: Vital Signs 08/18/18 11:14 08/18/18 12:00 08/18/18 12:42 Temperature 98.4 F Pulse Rate 66 69 64 Respiratory Rate 18 29 H 24 Blood Pressure 159/75 H 170/79 H Pulse Oximetry 97 97 98 08/18/18 13:00 08/18/18 13:17 08/18/18 14:00 Temperature Pulse Rate 61 62 Respiratory Rate 19 17 28 H Blood Pressure Pulse Oximetry 96 96 08/18/18 15:00 08/18/18 16:00 08/18/18 16:23 Temperature Pulse Rate 62 64 60 Respiratory Rate 19 16 22 Blood Pressure Pulse Oximetry 96 98 08/18/18 17:00 08/18/18 17:02 08/18/18 18:00 Temperature Pulse Rate 65 63 62 Respiratory Rate 17 26 H 16 Blood Pressure 186/77 H Pulse Oximetry 98 98 97 08/18/18 18:09 08/18/18 18:44 08/18/18 19:00 Temperature Pulse Rate 66 64 Respiratory Rate 46 H 18 18 Blood Pressure 183/83 H 201/86 H Pulse Oximetry 98 97 08/18/18 19:56 08/18/18 20:00 08/18/18 21:00 Temperature 98.3 F Pulse Rate 65 72 62 Respiratory Rate 17 18 20 Blood Pressure 169/73 H 177/75 H Pulse Oximetry 95 97 95 08/18/18 22:00 08/18/18 23:00 08/18/18 23:42 Temperature Pulse Rate 60 63 75 Respiratory Rate 22 16 17 Blood Pressure 176/73 H 181/72 H Pulse Oximetry 96 95 08/19/18 00:00 08/19/18 01:00 08/19/18 02:00 Temperature 98.6 F Pulse Rate 74 74 76 Respiratory Rate 23 18 18 Blood Pressure 175/72 H 160/69 H 165/71 H Pulse Oximetry 97 95 94 L 08/19/18 02:05 08/19/18 03:00 08/19/18 04:00 Temperature 98.3 F Pulse Rate 84 76 Respiratory Rate 18 21 18 Blood Pressure 160/68 H 163/75 H Pulse Oximetry 97 99 08/19/18 05:00 08/19/18 06:00 08/19/18 07:50 Temperature Pulse Rate 62 63 76 Respiratory Rate 20 18 23 Blood Pressure 161/72 H 162/69 H Pulse Oximetry 99 97 95 Intake & Output 08/18/18 08/19/18 08/19/18 18:59 06:59 18:59 Intake Total 480 / 480 480 / 480 Output Total 1200 / 1200 Balance -720 / -720 480 / 480 Weight 165.561 kg Intake: Oral 480 / 480 480 / 480 Output: Urine Amount (Catheter) 1200 / 1200 Indwelling Urethral Catheter 1200 / 1200 Other: # Incontinent Voids 2 Date of Last Bowel Movement 08/15/18 08/15/18 # Bowel Movements 0 - Urinary Catheter Management Indwelling Urethral Catheter Cath placed during this visit: yes, but has since been removed by the nurse Reason for continuing: Hourly intake/output Insertion date: 08/17/18 Removal date: 08/18/18 Removal time: 18:15 Female External Cath placed during this visit: no Reason for continuing: Not indwelling catheter Assessment and Plan - Assessment (1) Cervical spinal cord injury Code(s): S14.109A - Unspecified injury at unspecified level of cervical spinal cord, initial encounter Status: Acute (2) Stenosis of cervical spine with myelopathy Code(s): M47.12 - Other spondylosis with myelopathy, cervical region Status: Chronic (3) Chronic incomplete quadriplegia Code(s): G82.50 - Quadriplegia, unspecified Status: Acute - Plan 58-year-old female s/p C3/4 partial corpectomy ACDF for cervical myelopathy on 08/17/18. PT- mobilize w/ collar - OT Anticipate rehab given significant preop weakness, she is improving after surgery Transfer to floor when ok with primary service, likely later this evening or tomorrow
[2018-08-19] MEDS: hydrALAZINE HCl Inj 20 MG/ML Vial IV.PUSH PRN ×3 (12:07→22:20)
[2018-08-19] MEDS: Montelukast 10 MG Tablet PO SCH (18:17)
[2018-08-19] MEDS: Enoxaparin Inj 40 MG/0.4 ML Syringe SQ SCH (21:50)
[2018-08-19] MEDS: Morphine Inj 4 MG/ML Vial IV.PUSH PRN (23:29)
[2018-08-20] MEDS: Insulin NovoLOG Aspart Correctional Sugar Inj SQ SCH ×4 (01:47→18:38)
[2018-08-20] MEDS: hydrALAZINE HCl Inj 20 MG/ML Vial IV.PUSH PRN ×3 (02:06→13:08)
[2018-08-20] MEDS: Sod Chloride 0.9% Inj 1,000 ML IV.CONT SCH ×3 (02:19→22:05)
[2018-08-20] MEDS: HYDROmorphone PF Inj 2 MG/ML Vial IV.PUSH PRN ×3 (03:01→21:58)
[2018-08-20] MEDS: Chlorhexidine Gluconate 2% 1 Pack (2 Cloths) TOPICAL SCH (05:50)
[2018-08-20] MEDS: Levothyroxine 88 MCG Tablet PO SCH (05:51)
[2018-08-20] MEDS: Morphine Inj 4 MG/ML Vial IV.PUSH PRN ×2 (07:51→17:03)
--- NOTE | 2018-08-20 07:58 | P.HPIM ---
History of Present Illness Service: [facility] Primary Care Physician: UNKNOWN Chief Complaint: Weakness and numbness History of Present Illness: This is a 58-year-old CF with a PMHx DM and spinal stenosis who presented with acute onset of bilateral arm and leg weakness for the past 4 days. Per MRI of the C-spine had an extruded disc fragment at C3-C4 eccentric to the right causing severe spinal canal stenosis with associated cord edema. Patient is s/p anterior cervical C3-4 interbody fusion, C3 and C4 partial corpectomies, anterior C3-4 cervical plate placement, C3-4 interbody cage placement, and microsurgical technique on 08/[address] Kam, POD#2, we have been consulted for medical management. Patient reports that she is doing well with pain wel controlled. Patient is tolerating p.o., voiding with Wise. Patient has no current concerns. - Diagnosis (1) Diabetes (2) HTN (hypertension) (3) Depression (4) Cervical spinal cord injury (5) Stenosis of cervical spine with myelopathy Inpatient Certification: I certify that the inpatient services were ordered in accordance with Medicare regulations governing the order. This includes certification that hospital inpatient services are reasonable and necessary and in the case of services not specified as inpatient-only under 42 CFR 419.22(n), that they are appropriately provided as inpatient services in accordance to with the 2-midnight benchmark under 43 CFR 412.3(e) Estimated Total Length of Stay (Days): 5 Plans for Post Hospital Care: Not yet determined Review of Systems All other systems reviewed negative except as stated in HPI [facility] - History History Provided By: Patient - Medical History Medical History: Medical History (Last Reviewed 08/20/18 @ 09:44 by Flora Hernandez MD) Hx of diabetes mellitus Hx of spinal stenosis Hypertension Morbid obesity - Surgical History Surgical History: Surgical History (Last Updated 08/20/18 @ 09:45 by Flora Hernandez MD) H/O Spinal surgery - Family History Family History: Family History (Last Updated 08/20/18 @ 09:45 by Flora Hernandez MD) Other Family history normal - Tobacco History Second Hand Smoke Exposure: Yes Tobacco Use In Past 30 Days: Yes Smoking Status: Current every day smoker Tobacco Type: Cigarettes - Alcohol History How Often Do You Have a Drink Containing Alcohol: 2 to 3 times a week - Substance Use History Substance History: No History of Abuse - Travel History Recent Travel in the [place] Within the Last 8 Weeks: No Recent Travel Out of the Country Within the Last 8 Weeks: No - Immunization History Tetanus Immunization: >5 Years Medications and Allergies Active Medications: Active Medications Acetaminophen (Tylenol) 650 mg PO Q6H PRN PRN Reason: PAIN 1-10 AND/OR FEVER >101F Al Hydrox/Mg Hydrox/Simethicone (Mag-Al Plus Susp Liq) 30 ml PO Q6H PRN PRN Reason: DYSPEPSIA Al Hydroxide/Mg Hydroxide (Milk Of Magnesia Liq) 30 ml PO Q12H PRN PRN Reason: Mild Constipation Albuterol (Duoneb Neb (Katlyn)) 1 ampul NEB Q4HR NEB [facility] Last Admin: 08/20/18 07:34 Dose: 1 ampul Albuterol (Duoneb Neb (Prn)) 1 ampul NEB Q2HR NEB PRN PRN Reason: WHEEZING Albuterol (Albuterol Neb (Prn)) 2.5 mg NEB Q4HR NEB PRN PRN Reason: WHEEZING Amlodipine Besylate (Norvasc) 10 mg PO DAILY [facility] Last Admin: 08/19/18 09:03 Dose: 10 mg Bisacodyl (Dulcolax Supp) 10 mg RECTAL DAILY PRN PRN Reason: SEVERE CONSITIPATION Budesonide/Formoterol Fumarate (Symbicort 160/4.5 Mcg Inh) 2 puff INH BID [facility] Last Admin: 08/19/18 21:13 Dose: 2 puff Chlorhexidine Gluconate (Chlorhexidine 2% Cloth) 3 pack TOPICAL DAILY@0400 [facility] Stop: 08/22/18 03:59 Last Admin: 08/20/18 05:50 Dose: 3 pack Chlorhexidine Gluconate (Chlorhexidine 2% Cloth) 3 pack TOPICAL DAILY@0400 PRN PRN Reason: Extra cloth needed Stop: 08/22/18 03:59 Clonidine HCl (Catapres) 0.1 mg NG/OG Q6H PRN PRN Reason: SYS BP GREATER THAN 170 [facility] Last Admin: 08/18/18 21:12 Dose: 0.1 mg Dextrose (D50w Vial) 50 ml IV.PUSH UNSCH PRN PRN Reason: PER HYPOGLYCEMIA PROTOCOL Duloxetine HCl (Cymbalta) 30 mg PO BID [facility] Last Admin: 08/19/18 20:54 Dose: 30 mg Enoxaparin Sodium (Lovenox Inj) 40 mg SQ DAILY [facility] Last Admin: 08/19/18 21:50 Dose: 40 mg Famotidine (Pepcid Pf Inj) 20 mg IV.PUSH Q12HR [facility] Last Admin: 08/19/18 20:55 Dose: 20 mg Glucagon (Glucagon Inj) 1 mg OTHER PRN PRN PRN Reason: for Hypoglycemia Protocol Hydralazine HCl (Apresoline Inj) 20 mg IV.PUSH Q2H PRN PRN Reason: SYS BP GREATER THAN 180 [facility] Last Admin: 08/20/18 07:19 Dose: 20 mg Hydromorphone HCl (Dilaudid Pf Inj) 1 mg IV.PUSH Q4H PRN PRN Reason: PAIN SCALE 6 TO 10 Last Admin: 08/20/18 03:01 Dose: 1 mg Calcium Gluconate 1 gm/ Sodium (Chloride) 110 mls @ 110 mls/hr IV.SIG UNSCH PRN PRN Reason: SEE LABEL COMMENTS Magnesium Sulfate 2 gm/ Sodium (Chloride) 100 mls @ 100 mls/hr IV.SIG UNSCH PRN PRN Reason: MAGNESIUM LESS THAN 2 Potassium Chloride (Kcl 20 Meq Premix Inj) 20 meq in 100 mls @ 50 mls/hr IV.SIG UNSCH PRN PRN Reason: POTASSIUM LESS THAN 4 Sodium Chloride (Ns Inj) 1,000 mls @ 100 mls/hr IV.CONT .Q10H [facility] Last Admin: 08/20/18 02:19 Dose: Not Given Insulin Aspart (Novolog Insulin Correctional Sugar Inj) 0 unit SQ Q6HR [facility]; Protocol Last Admin: 08/20/18 07:19 Dose: Not Given Insulin Detemir (Levemir Inj) 10 unit SQ BID [facility] Last Admin: 08/19/18 20:55 Dose: 10 unit Labetalol HCl (Trandate Inj) 10 mg IV.PUSH Q1H PRN PRN Reason: SYS BP GREATER THAN 170 [facility] Last Admin: 08/18/18 21:00 Dose: 10 mg Lactulose (Lactulose Liq) 30 ml PO DAILY PRN PRN Reason: SEVERE CONSITIPATION Levothyroxine Sodium (Synthroid) 88 mcg PO DAILY@0600 [facility] Last Admin: 08/20/18 05:51 Dose: 88 mcg Menthol (Hollis) 1 lozenge BUCCAL UNSCH PRN PRN Reason: SORE THROAT Montelukast Sodium (Singulair) 10 mg PO QPM [facility] Last Admin: 08/19/18 18:17 Dose: 10 mg Morphine Sulfate (Morphine Inj) 4 mg IV.PUSH Q4H PRN PRN Reason: Pain Scale 7 to 10 Last Admin: 08/20/18 07:51 Dose: 4 mg Nicotine (Habitrol 14 Mg Patch.24 Hr) 1 patch T-DERMAL DAILY [facility] Last Admin: 08/19/18 09:04 Dose: 1 patch Ondansetron HCl (Zofran Inj) 4 mg IV.PUSH Q6H PRN PRN Reason: NAUSEA OR VOMITING Paroxetine HCl (Paxil) 20 mg PO DAILY [facility] Last Admin: 08/19/18 09:03 Dose: 20 mg Patch Removal (Remove Old Patch) 1 each T-DERMAL DAILY [facility] Last Admin: 08/19/18 09:04 Dose: 1 each Pravastatin Sodium (Pravachol) 40 mg PO QPM [facility] Last Admin: 08/19/18 18:18 Dose: 40 mg Promethazine HCl (Phenergan Inj) 25 mg IM Q4H PRN PRN Reason: NAUSEA OR VOMITING Senna/Docusate Sodium (Elida-Colace) 1 tab PO BID [facility] Last Admin: 08/19/18 20:54 Dose: 1 tab Sennosides (Senokot) 17.2 mg PO Q12H PRN PRN Reason: Moderate Constipation Sodium Chloride (Ns Flush) 2 ml IV.FLUSH BID [facility] Last Admin: 08/19/18 20:55 Dose: 2 ml Sodium Chloride (Ns Flush) 2 ml IV.FLUSH PRN PRN PRN Reason: FLUSH AFTER USING IV ACCESS Temazepam (Restoril) 30 mg PO HS PRN PRN Reason: SLEEP Tiotropium Hertel (Spiriva 18 Mcg Inh) 18 mcg INH DAILY [facility] Last Admin: 08/19/18 09:05 Dose: 18 mcg Tizanidine HCl (Zanaflex) 4 mg PO TID [facility] Last Admin: 08/19/18 17:44 Dose: 4 mg Allergies Allergy/AdvReac Type Severity Reaction Status Date / Time No Known Allergies Allergy Verified 08/16/18 22:35 Home Medications Medication Instructions Recorded Confirmed Type albuterol sulfate 1.25 mg INHALATION QID PRN 08/16/18 08/16/18 History clonidine HCl 0.1 mg PO BID 08/16/18 08/16/18 History duloxetine 30 mg PO BID 08/16/18 08/16/18 History duloxetine 30 mg PO BID 08/16/18 08/16/18 History fluticasone-salmeterol [Advair 1 inh INHALATION BID 08/16/18 08/16/18 History Diskus] furosemide 40 mg PO BID 08/16/18 08/16/18 History furosemide 40 mg PO DAILY 08/16/18 08/16/18 History levothyroxine 88 mcg PO DAILY 08/16/18 08/16/18 History levothyroxine 88 mcg PO DAILY 08/16/18 08/16/18 History lisinopril-hydrochlorothiazide 1 tab PO DAILY 08/16/18 08/16/18 History montelukast 10 mg PO QPM 08/16/18 08/16/18 History montelukast 10 mg PO QPM 08/16/18 08/16/18 History naproxen 500 mg PO BID 08/16/18 08/16/18 History omeprazole 40 mg PO DAILY 08/16/18 08/16/18 History oxycodone-acetaminophen 1 tab PO Q4H PRN 08/16/18 08/16/18 History paroxetine HCl 20 mg PO DAILY 08/16/18 08/16/18 History paroxetine HCl 20 mg PO DAILY 08/16/18 08/16/18 History pioglitazone 45 mg PO DAILY 08/16/18 08/16/18 History simvastatin 20 mg PO QPM 08/16/18 08/16/18 History simvastatin 20 mg PO QPM 08/16/18 08/16/18 History sitagliptin-metformin [Janumet] 1 tab PO BID 08/16/18 08/16/18 History temazepam 30 mg PO PRN 08/16/18 History tiotropium bromide [Spiriva with 1 cap INHALATION DAILY 08/16/18 08/16/18 History HandiHaler] tizanidine 4 mg PO TID 08/16/18 08/16/18 History Exam Vital signs: Vital Signs 08/19/18 08:00 08/19/18 08:04 08/19/18 09:00 Temperature 98.9 F Pulse Rate 69 65 74 Respiratory Rate 46 H 22 27 H Blood Pressure 172/75 H Pulse Oximetry 99 97 96 08/19/18 10:00 08/19/18 10:24 08/19/18 11:00 Temperature Pulse Rate 61 59 L 58 L Respiratory Rate 15 20 13 Blood Pressure 189/75 H Pulse Oximetry 95 96 98 08/19/18 11:20 08/19/18 12:00 08/19/18 12:17 Temperature Pulse Rate 66 63 63 Respiratory Rate 38 H 18 18 Blood Pressure 181/77 H 158/74 H Pulse Oximetry 97 98 08/19/18 13:00 08/19/18 13:08 08/19/18 13:18 Temperature Pulse Rate 62 72 68 Respiratory Rate 18 32 H 27 H Blood Pressure 135/60 126/58 L Pulse Oximetry 95 93 L 98 08/19/18 13:36 08/19/18 14:00 08/19/18 14:50 Temperature Pulse Rate 71 77 60 Respiratory Rate 18 33 H 18 Blood Pressure 131/74 150/74 H Pulse Oximetry 100 98 100 08/19/18 15:00 08/19/18 15:40 08/19/18 15:50 Temperature Pulse Rate 62 63 61 Respiratory Rate 24 18 18 Blood Pressure 160/82 H Pulse Oximetry 100 100 08/19/18 16:00 08/19/18 16:50 08/19/18 17:00 Temperature 98.6 F Pulse Rate 63 79 80 Respiratory Rate 19 19 19 Blood Pressure 174/93 H Pulse Oximetry 100 98 99 08/19/18 19:58 08/19/18 20:00 08/19/18 22:00 Temperature 99.3 F Pulse Rate 85 82 82 Respiratory Rate 17 23 Blood Pressure 179/73 H Pulse Oximetry 95 08/20/18 00:00 08/20/18 02:00 08/20/18 04:00 Temperature 98.3 F 98.5 F Pulse Rate 98 H 99 H 94 H Respiratory Rate 23 22 Blood Pressure 172/79 H 178/78 H Pulse Oximetry 92 L 93 L 08/20/18 06:00 08/20/18 07:36 Temperature Pulse Rate 81 88 Respiratory Rate 18 Blood Pressure Pulse Oximetry 94 L Intake & Output 08/19/18 08/20/18 08/20/18 18:59 06:59 18:59 Intake Total 240 / 240 Output Total 1600 / 1600 1300 / 1300 Balance -1600 / -1600 -1060 / -1060 Intake: Oral 240 / 240 Output: Urine 1300 / 1300 Urine Amount (Catheter) 1600 / 1600 Female External 1600 / 1600 Other: Date of Last Bowel Movement 08/15/18 08/15/18 Narrative: GENERAL: Well-nourished female, in no acute distress, lying comfortably in bed SKIN: Warm and dry. HEAD: Normocephalic. EYES: No scleral icterus. No injection or drainage. PERRLA, MOM. NECK: Supple, trachea midline. No JVD or lymphadenopathy. J-collar in place. CARDIOVASCULAR: Regular rate and rhythm without murmurs, gallops, or rubs. RESPIRATORY: Breath sounds equal bilaterally. No accessory muscle use. GASTROINTESTINAL: Abdomen soft, non-tender, nondistended. MUSCULOSKELETAL: No cyanosis, or edema. BACK: Nontender without obvious deformity. No CVA tenderness. NEURO: Bilateral LE motor strength 3/5, Bilateral UE 5/5. Results - Labs CBC & Chem 7: 08/18/18 03:34 08/18/18 03:34 Caprini VTE Risk Assessment Caprini VTE Risk Assessment: Moderate/High Risk (score >= 2) Caprini Risk Assessment Model: Point Value = 1 Point Value = 2 Point Value = 3 Point Value = 5 Age 41-60 Minor surgery BMI > 25 kg/m2 Swollen legs Varicose veins or History of unexplained or recurrent spontaneous Oral contraceptives or hormone replacement Sepsis (< 1 month) Serious lung disease, including pneumonia (< 1 month) Abnormal pulmonary function Acute myocardial infarction Congestive heart failure (< 1 month) History of inflammatory bowel disease Medical patient at bed rest Age 61-74 Arthroscopic surgery Major open surgery (> 45 min) Laparoscopic surgery (> 45 min) Malignancy Confined to bed (> 72 hours) Immobilizing plaster cast Central venous access Age >= 75 History of VTE Family history of VTE Factor V Leiden Prothrombin [id number] Lupus anticoagulant Anticardiolipin antibodies Elevated serum homocysteine Heparin-induced thrombocytopenia Other congenital or acquired thrombophilia Stroke (< 1 month) Elective arthroplasty Hip, pelvis, or leg fracture Acute spinal cord injury (< 1 month) Prophylaxis Regimen: Total Risk Factor Score Risk Level Prophylaxis Regimen 0-1 Low Early ambulation 2 Moderate Order ONE of the following: *Sequential Compression Device (SCD) *Heparin 5000 units SQ BID 3-4 Higher Order ONE of the following medications: *Heparin 5000 units SQ TID *Enoxaparin/Lovenox 40 mg SQ daily (WT < 150 kg, CrCl > 30 mL/min) *Enoxaparin/Lovenox 30 mg SQ daily (WT < 150 kg, CrCl > 10-29 mL/min) *Enoxaparin/Lovenox 30 mg SQ BID (WT < 150 kg, CrCl > 30 mL/min) AND/OR *Sequential Compression Device (SCD) 5 or more Highest Order ONE of the following medications: *Heparin 5000 units SQ TID (Preferred with Epidurals) *Enoxaparin/Lovenox 40 mg SQ daily (WT < 150 kg, CrCl > 30 mL/min) *Enoxaparin/Lovenox 30 mg SQ daily (WT < 150 kg, CrCl > 10-29 mL/min) *Enoxaparin/Lovenox 30 mg SQ BID (WT < 150 kg, CrCl > 30 mL/min) AND *Sequential Compression Device (SCD) Assessment and Plan - Assessment (1) Diabetes Code(s): E11.9 - Type 2 diabetes mellitus without complications Status: Chronic (2) HTN (hypertension) Code(s): I10 - Essential (primary) hypertension Status: Chronic (3) Depression Code(s): F32.9 - Major depressive disorder, single episode, unspecified Status : Chronic (4) Cervical spinal cord injury Code(s): S14.109A - Unspecified injury at unspecified level of cervical spinal cord, initial encounter Status: Acute (5) Stenosis of cervical spine with myelopathy Code(s): M47.12 - Other spondylosis with myelopathy, cervical region Status: Chronic - Plan This is a 58-year-old CF with a PMHx DM and spinal stenosis who presented with acute onset of bilateral arm and leg weakness for the past 4 days. Per MRI of the C-spine had an extruded disc fragment at C3-C4 eccentric to the right causing severe spinal canal stenosis with associated cord edema. Patient is s/p anterior cervical C3-4 interbody fusion, C3 and C4 partial corpectomies, anterior C3-4 cervical plate placement, C3-4 interbody cage placement, and microsurgical technique on 08/[address] Kam, POD#2, we have been consulted for medical management, HD #3 1. Postop Care s/p Anterior cervical C3-4 interbody fusion; C3 and C4 partial corpectomies; anterior C3-4 cervical plate placement; C3-4 interbody cage placement; microsurgical technique on 08/[address] Kam. -Further management per neurosurgery -Cont. PT -Stable for transfer to medical floor Per NeuroSx on 08/19 58-year-old female s/p C3/4 partial corpectomy ACDF for cervical myelopathy on 08/17/18. PT- mobilize w/ collar - OT Anticipate rehab given significant preop weakness, she is improving after surgery Transfer to floor when ok with primary service, likely later this evening or tomorrow 2. Urinary Incontinence -Due to above -Wise 3. COPD -DuoNeb scheduled and as needed -Cont. Symbicort, Singulair, and Spiriva 4. Depression -Cont. Cymbalta and Paroxetine 5. Hypothyroidism -Cont. Levothyroxine 6. Hyperlipidemia -Cont. Pravastatin 7. Diabetes Mellitus, Type II -BS stable, 143, 120, 1119 -Cont. Levemir 10U BID -Cont. Insulin sliding scale 8. Hypertension -Not well controlled, starting metoprolol today due to tachycardia as well -Cont. Norvasc and Clonidine PRN -Consider adding ABEBE due to history of DM 9. DVT/GI prophylaxis -Teds SCDs -Lovenox -Pepcid 10. Dispo: stable for transfer to floor, monitor BP's, F/U neurosx reccs, F/U AM labs Code Status: full Discussed Condition With: patient, RN H&P: Quality - VTE Deep Vein Thrombosis/Pulmonary Embolism Present on Admission: No
[2018-08-20] MEDS: Senna/Docusate Sodium 8.6/50 MG Tablet PO SCH ×2 (08:39→22:01)
[2018-08-20] MEDS: amLODIPine 10 MG Tablet PO SCH (08:39)
[2018-08-20] MEDS: Enoxaparin Inj 40 MG/0.4 ML Syringe SQ SCH (08:40)
[2018-08-20] MEDS: Famotidine PF Inj 20 MG/2 ML Vial IV.PUSH SCH ×2 (08:40→22:00)
[2018-08-20] MEDS: Insulin Detemir Inj 1,000 UNIT/10 ML Vial SQ SCH ×2 (08:41→22:16)
[2018-08-20] MEDS: Tiotropium Bromide 18 MCG/ACT Inhaler INH SCH (08:42)
[2018-08-20] MEDS: Budesonide-Formoterol 160/4.5 MCG 6 GM Inhaler INH SCH ×2 (08:42→22:04)
[2018-08-20] MEDS: Metoprolol Tartrate 25 MG Tablet PO SCH ×2 (11:11→22:01)
--- NOTE | 2018-08-20 15:11 | P.PNNS ---
Subjective Interval history: Doing well Physical Exam Vital signs: Vital Signs 08/19/18 15:40 08/19/18 15:50 08/19/18 16:00 Temperature 98.6 F Pulse Rate 63 61 63 Respiratory Rate 18 18 19 Blood Pressure 160/82 H Pulse Oximetry 100 100 08/19/18 16:50 08/19/18 17:00 08/19/18 19:58 Temperature Pulse Rate 79 80 85 Respiratory Rate 19 19 17 Blood Pressure 174/93 H Pulse Oximetry 98 99 08/19/18 20:00 08/19/18 22:00 08/20/18 00:00 Temperature 99.3 F 98.3 F Pulse Rate 82 82 98 H Respiratory Rate 23 23 Blood Pressure 179/73 H 172/79 H Pulse Oximetry 95 92 L 08/20/18 02:00 08/20/18 04:00 08/20/18 06:00 Temperature 98.5 F Pulse Rate 99 H 94 H 81 Respiratory Rate 22 Blood Pressure 178/78 H Pulse Oximetry 93 L 08/20/18 07:36 08/20/18 08:00 08/20/18 08:41 Temperature Pulse Rate 88 Respiratory Rate 18 24 24 Blood Pressure Pulse Oximetry 94 L 08/20/18 11:22 08/20/18 15:04 Temperature Pulse Rate 82 70 Respiratory Rate 20 18 Blood Pressure Pulse Oximetry Intake & Output 08/19/18 08/20/18 08/20/18 18:59 06:59 18:59 Intake Total 240 / 240 Output Total 1600 / 1600 1300 / 1300 Balance -1600 / -1600 -1060 / -1060 Intake: Oral 240 / 240 Output: Urine 1300 / 1300 Urine Amount (Catheter) 1600 / 1600 Female External 1600 / 1600 Other: Date of Last Bowel Movement 08/15/18 08/15/18 08/15/18 Narrative: A&O x 3 Motor 4/5 UE and 4/5 LE Incision c/d/i collar in place - Urinary Catheter Management Indwelling Urethral Catheter Cath placed during this visit: yes, but has since been removed by the nurse Reason for continuing: Hourly intake/output Insertion date: 08/17/18 Removal date: 08/18/18 Removal time: 18:15 Female External Cath placed during this visit: no Reason for continuing: Not indwelling catheter Assessment and Plan - Assessment (1) Cervical spinal cord injury Code(s): S14.109A - Unspecified injury at unspecified level of cervical spinal cord, initial encounter Status: Acute (2) Stenosis of cervical spine with myelopathy Code(s): M47.12 - Other spondylosis with myelopathy, cervical region Status: Chronic (3) Chronic incomplete quadriplegia Code(s): G82.50 - Quadriplegia, unspecified Status: Acute - Plan 58-year-old female s/p C3/4 partial corpectomy ACDF for cervical myelopathy on 08/17/18. PT- mobilize w/ collar - OT Anticipate rehab given significant preop weakness, she is improving after surgery Transfer to floor when ok with primary service, likely later this evening or tomorrow
[2018-08-20] MEDS: Montelukast 10 MG Tablet PO SCH (18:45)
[2018-08-21] MEDS: Temazepam 15 MG Capsule PO PRN (00:59)
[2018-08-21] MEDS: Insulin NovoLOG Aspart Correctional Sugar Inj SQ SCH ×4 (02:45→17:54)
[2018-08-21] MEDS: Chlorhexidine Gluconate 2% 1 Pack (2 Cloths) TOPICAL SCH (04:57)
[2018-08-21] MEDS: Morphine Inj 4 MG/ML Vial IV.PUSH PRN ×2 (05:06→23:18)
[2018-08-21] MEDS: Levothyroxine 88 MCG Tablet PO SCH (05:09)
[2018-08-21] MEDS: Senna/Docusate Sodium 8.6/50 MG Tablet PO SCH ×2 (08:52→23:21)
[2018-08-21] MEDS: Famotidine PF Inj 20 MG/2 ML Vial IV.PUSH SCH ×2 (08:52→23:19)
[2018-08-21] MEDS: Metoprolol Tartrate 25 MG Tablet PO SCH ×2 (08:52→23:20)
[2018-08-21] MEDS: amLODIPine 10 MG Tablet PO SCH (08:52)
[2018-08-21] MEDS: Insulin Detemir Inj 1,000 UNIT/10 ML Vial SQ SCH ×2 (08:53→23:43)
[2018-08-21] MEDS: HYDROmorphone PF Inj 2 MG/ML Vial IV.PUSH PRN ×2 (08:53→17:39)
[2018-08-21] MEDS: Enoxaparin Inj 40 MG/0.4 ML Syringe SQ SCH (08:53)
[2018-08-21] MEDS: Tiotropium Bromide 18 MCG/ACT Inhaler INH SCH (08:59)
[2018-08-21] MEDS: Budesonide-Formoterol 160/4.5 MCG 6 GM Inhaler INH SCH ×2 (08:59→23:21)
[2018-08-21 11:22] LABS: Baso % (Auto) 0.2 % (0.0-2.0); Eos # (Auto) 0.1 th/mm3 (0.0-0.4); Eos % (Auto) 0.8 % (0.0-4.0); Hematocrit 42.9 % (35.0-46.0); Hemoglobin 14.6 gm/dL (11.6-15.3); Lymph # (Auto) 1.3 th/mm3 (1.0-4.8); Lymph % (Auto) 13.5 % (9.0-44.0); Mean Corpuscular HGB Conc 34.1 % (32.0-36.0); Mean Corpuscular Hemoglobin 32.9 pg (27.0-34.0); Mean Corpuscular Volume 96.7 fL (80.0-100.0); Mean Platelet Volume 8.8 fL (7.0-11.0); Mono # (Auto) 0.5 th/mm3 (0.0-0.9); Mono % (Auto) 5.1 % (0.0-8.0); Neut # (Auto) 7.9 th/mm3 (1.8-7.7); Neut % (Auto) 80.4 % (16.0-70.0); Platelet Count 291 th/mm3 (150-450); Red Blood Count 4.44 mil/mm3 (4.00-5.30); Red Cell Distribution Width 14.2 % (11.6-17.2); White Blood Count 9.8 th/mm3 (4.0-11.0)
[2018-08-21 11:46] LABS: Alanine Aminotransferase 23 U/L (10-53); Albumin 3.1 g/dL (3.4-5.0); Alkaline Phosphatase 94 U/L (45-117); Anion Gap 4 meq/L (5-15); Aspartate Aminotransferase 26 U/L (15-37); Blood Urea Nitrogen 18 mg/dL (7-18); Calcium 10.6 mg/dL (8.5-10.1); Carbon Dioxide 31.6 meq/L (21.0-32.0); Chloride 101 meq/L (98-107); Glomerular Filtration Rate 69 mL/min (>89); Glucose,Random 175 mg/dL (74-106); Potassium 3.7 meq/L (3.5-5.1); Sodium 137 meq/L (136-145); Total Protein 7.6 g/dL (6.4-8.2)
--- NOTE | 2018-08-21 12:10 | P.PN ---
Subjective Interval history: Patient doing well overnight. Patient reports that she is tolerating p.o., voiding/stooling well. Patient reports pain well controlled, and states that she is doing well with PT. Physical Exam Vital signs: Vital Signs 08/20/18 12:00 08/20/18 14:00 08/20/18 15:04 Temperature 98.1 F Pulse Rate 78 64 70 Respiratory Rate 21 18 Blood Pressure 161/79 H Pulse Oximetry 08/20/18 16:00 08/20/18 20:00 08/20/18 20:44 Temperature 98.6 F 98.6 F Pulse Rate 68 85 87 Respiratory Rate 20 18 18 Blood Pressure 154/72 H 148/78 H Pulse Oximetry 95 96 95 08/21/18 00:00 08/21/18 04:00 08/21/18 08:00 Temperature 97.9 F 98 F 97.7 F Pulse Rate 83 75 80 Respiratory Rate 18 18 18 Blood Pressure 159/78 H 168/81 H 178/81 H Pulse Oximetry 95 96 94 L 08/21/18 08:16 Temperature Pulse Rate Respiratory Rate Blood Pressure Pulse Oximetry 96 Intake & Output 08/20/18 08/21/18 08/21/18 18:59 06:59 18:59 Intake Total 120 / 120 Balance 120 / 120 Weight 165.7 kg Intake: Oral 120 / 120 Other: # Incontinent Voids 1 Date of Last Bowel Movement 08/15/18 Narrative: GENERAL: Well-nourished female, in no acute distress, lying comfortably in bed, nasal cannula in place SKIN: Warm and dry. HEENT: Normocephalic. No scleral icterus. No injection or drainage. PERRLA, MOM. NECK: Supple, trachea midline. No JVD or lymphadenopathy. Collar in place. CARDIOVASCULAR: Regular rate and rhythm without murmurs, gallops, or rubs. RESPIRATORY: Breath sounds equal bilaterally. No accessory muscle use. GASTROINTESTINAL: Abdomen soft, non-tender, nondistended. MUSCULOSKELETAL: No cyanosis, or edema. BACK: Nontender without obvious deformity. No CVA tenderness. NEURO: Bilateral LE motor strength 4/5, Bilateral UE 5/5. - Urinary Catheter Management Indwelling Urethral Catheter Cath placed during this visit: yes, but has since been removed by the nurse Reason for continuing: Hourly intake/output Insertion date: 08/17/18 Removal date: 08/18/18 Removal time: 18:15 Female External Cath placed during this visit: no Reason for continuing: Not indwelling catheter Results - Labs CBC & Chem 7: 08/21/18 10:50 08/21/18 10:50 Laboratory Results - last 24 hr 08/20/18 08/20/18 08/20/18 12:04 18:16 22:06 WBC RBC Hgb Hct MCV MCH MCHC RDW Plt Count MPV Neut % (Auto) Lymph % (Auto) [place] % (Auto) Eos % (Auto) Baso % (Auto) Neut # (Auto) Lymph # (Auto) [place] # (Auto) Eos # (Auto) Baso # (Auto) WBC Differential Differential Comment Sodium Potassium Chloride Carbon Dioxide Anion Gap BUN Creatinine Estimated GFR POC Glucose 112 H 124 H 172 H Random Glucose Calcium Total Bilirubin AST ALT Alkaline Phosphatase Total Protein Albumin 08/21/18 08/21/18 08/21/18 05:11 10:50 10:50 WBC 9.8 RBC 4.44 Hgb 14.6 Hct 42.9 MCV 96.7 MCH 32.9 MCHC 34.1 RDW 14.2 Plt Count 291 MPV 8.8 Neut % (Auto) 80.4 H Lymph % (Auto) 13.5 [place] % (Auto) 5.1 Eos % (Auto) 0.8 Baso % (Auto) 0.2 Neut # (Auto) 7.9 H Lymph # (Auto) 1.3 [place] # (Auto) 0.5 Eos # (Auto) 0.1 Baso # (Auto) 0.0 WBC Differential . Differential Comment Auto diff final Sodium 137 Potassium 3.7 Chloride 101 Carbon Dioxide 31.6 Anion Gap 4 L BUN 18 Creatinine 0.85 Estimated GFR 69 L POC Glucose 113 H Random Glucose 175 H Calcium 10.6 H Total Bilirubin 1.1 H AST 26 ALT 23 Alkaline Phosphatase 94 Total Protein 7.6 D Albumin 3.1 L Assessment and Plan - Assessment (1) Diabetes Code(s): E11.9 - Type 2 diabetes mellitus without complications Status: Chronic (2) HTN (hypertension) Code(s): I10 - Essential (primary) hypertension Status: Chronic (3) Depression Code(s): F32.9 - Major depressive disorder, single episode, unspecified Status : Chronic (4) Cervical spinal cord injury Code(s): S14.109A - Unspecified injury at unspecified level of cervical spinal cord, initial encounter Status: Acute (5) Stenosis of cervical spine with myelopathy Code(s): M47.12 - Other spondylosis with myelopathy, cervical region Status: Chronic - Plan This is a 58-year-old CF with a PMHx DM and spinal stenosis who presented with acute onset of bilateral arm and leg weakness for the past 4 days. Per MRI of the C-spine had an extruded disc fragment at C3-C4 eccentric to the right causing severe spinal canal stenosis with associated cord edema. Patient is s/p anterior cervical C3-4 interbody fusion, C3 and C4 partial corpectomies, anterior C3-4 cervical plate placement, C3-4 interbody cage placement, and microsurgical technique on 08/[address] Kam, POD#3, we have been consulted for medical management, HD #4 1. Postop Care s/p Anterior cervical C3-4 interbody fusion; C3 and C4 partial corpectomies; anterior C3-4 cervical plate placement; C3-4 interbody cage placement; microsurgical technique on 08/[address] Kam. -Further management per neurosurgery -Cont. PT, Zanaflex, and Morphine PRN Reccs Per NeuroSx on 08/20 58-year-old female s/p C3/4 partial corpectomy ACDF for cervical myelopathy on 08/17/18. PT- mobilize w/ collar - OT Anticipate rehab given significant preop weakness, she is improving after surgery Transfer to floor when ok with primary service, likely later this evening or tomorrow 2. Urinary Incontinence -Due to above -Wise 3. COPD -DuoNeb scheduled and as needed -On home O2 at home at night only -Cont. Symbicort, Singulair, and Spiriva 4. Depression -Cont. Cymbalta and Paroxetine 5. Hypothyroidism -Cont. Levothyroxine 6. Hyperlipidemia -Cont. Pravastatin 7. Diabetes Mellitus, Type II -BS stable -Cont. Levemir 10U BID -Cont. Insulin sliding scale 8. Hypertension -Not well controlled, increase metoprolol today to 25mg BID -Cont. Norvasc and Clonidine PRN -Consider adding ABEBE due to history of DM 9. DVT/GI prophylaxis -Teds SCDs -Lovenox -Pepcid 10. Dispo: monitor BP's, F/U neurosx reccs Code Status: full Discussed Condition With: patient, RN
[2018-08-21] MEDS: Montelukast 10 MG Tablet PO SCH (17:39)
[2018-08-21] MEDS: Sod Chloride 0.9% Inj 1,000 ML IV.CONT SCH (20:24)
[2018-08-22] MEDS: Insulin NovoLOG Aspart Correctional Sugar Inj SQ SCH ×4 (00:29→19:21)
[2018-08-22] MEDS: Levothyroxine 88 MCG Tablet PO SCH (05:19)
[2018-08-22] MEDS: Morphine Inj 4 MG/ML Vial IV.PUSH PRN (05:27)
[2018-08-22] MEDS: Sod Chloride 0.9% Inj 1,000 ML IV.CONT SCH ×2 (06:25→19:21)
[2018-08-22] MEDS: Famotidine PF Inj 20 MG/2 ML Vial IV.PUSH SCH ×2 (09:39→20:57)
[2018-08-22] MEDS: Senna/Docusate Sodium 8.6/50 MG Tablet PO SCH ×2 (09:40→20:53)
[2018-08-22] MEDS: Insulin Detemir Inj 1,000 UNIT/10 ML Vial SQ SCH ×2 (09:40→21:13)
[2018-08-22] MEDS: Metoprolol Tartrate 25 MG Tablet PO SCH ×2 (09:40→20:52)
[2018-08-22] MEDS: Enoxaparin Inj 40 MG/0.4 ML Syringe SQ SCH (09:40)
[2018-08-22] MEDS: Tiotropium Bromide 18 MCG/ACT Inhaler INH SCH (09:42)
[2018-08-22] MEDS: Budesonide-Formoterol 160/4.5 MCG 6 GM Inhaler INH SCH ×2 (09:42→20:54)
[2018-08-22 09:47] LABS: Baso % (Auto) 0.3 % (0.0-2.0); Eos # (Auto) 0.3 th/mm3 (0.0-0.4); Eos % (Auto) 2.8 % (0.0-4.0); Hematocrit 44.3 % (35.0-46.0); Hemoglobin 14.9 gm/dL (11.6-15.3); Lymph # (Auto) 1.7 th/mm3 (1.0-4.8); Lymph % (Auto) 16.6 % (9.0-44.0); Mean Corpuscular HGB Conc 33.6 % (32.0-36.0); Mean Corpuscular Hemoglobin 32.6 pg (27.0-34.0); Mean Corpuscular Volume 96.9 fL (80.0-100.0); Mean Platelet Volume 9.2 fL (7.0-11.0); Mono # (Auto) 0.7 th/mm3 (0.0-0.9); Mono % (Auto) 7.2 % (0.0-8.0); Neut # (Auto) 7.3 th/mm3 (1.8-7.7); Neut % (Auto) 73.1 % (16.0-70.0); Platelet Count 276 th/mm3 (150-450); Red Blood Count 4.57 mil/mm3 (4.00-5.30); Red Cell Distribution Width 13.7 % (11.6-17.2); White Blood Count 9.9 th/mm3 (4.0-11.0)
[2018-08-22 09:53] LABS: Albumin 2.8 g/dL (3.4-5.0); Anion Gap 6 meq/L (5-15); Aspartate Aminotransferase 23 U/L (15-37); Blood Urea Nitrogen 20 mg/dL (7-18); Calcium 10.7 mg/dL (8.5-10.1); Chloride 102 meq/L (98-107); Glomerular Filtration Rate 87 mL/min (>89); Glucose,Random 123 mg/dL (74-106); Potassium 4.2 meq/L (3.5-5.1); Sodium 137 meq/L (136-145)
[2018-08-22 10:01] LABS: Alanine Aminotransferase 25 U/L (10-53); Alkaline Phosphatase 95 U/L (45-117); Total Protein 7.4 g/dL (6.4-8.2)
[2018-08-22] MEDS: HYDROmorphone PF Inj 2 MG/ML Vial IV.PUSH PRN (11:54)
[2018-08-22] MEDS: amLODIPine 10 MG Tablet PO SCH (14:53)
--- NOTE | 2018-08-22 15:06 | P.PN ---
Physical Exam Vital signs: Vital Signs 08/21/18 16:00 08/21/18 20:00 08/22/18 00:00 Temperature 98 F 98.3 F 98 F Pulse Rate 93 H 105 H 97 H Respiratory Rate 18 18 18 Blood Pressure 197/96 H 148/79 H 142/76 H Pulse Oximetry 94 L 95 95 08/22/18 04:00 08/22/18 08:00 08/22/18 12:00 Temperature 98 F 98.2 F 97.8 F Pulse Rate 106 H 77 69 Respiratory Rate 18 20 20 Blood Pressure 142/78 H 193/90 H 156/70 H Pulse Oximetry 97 92 L 98 Intake & Output 08/21/18 08/22/18 08/22/18 18:59 06:59 18:59 Intake Total 600 / 600 240 / 240 Output Total 600 / 600 700 / 700 Balance 0 / 0 -460 / -460 Intake: Oral 600 / 600 240 / 240 Output: Urine 600 / 600 Urine Amount (Catheter) 700 / 700 Female External 700 / 700 - Urinary Catheter Management Indwelling Urethral Catheter Cath placed during this visit: yes, but has since been removed by the nurse Reason for continuing: Hourly intake/output Insertion date: 08/17/18 Removal date: 08/18/18 Removal time: 18:15 Female External Cath placed during this visit: no Reason for continuing: Not indwelling catheter Results - Labs CBC & Chem 7: 08/22/18 08:12 08/22/18 08:12 Laboratory Results - last 24 hr 08/21/18 08/21/18 08/22/18 17:48 23:17 05:18 WBC RBC Hgb Hct MCV MCH MCHC RDW Plt Count MPV Neut % (Auto) Lymph % (Auto) [place] % (Auto) Eos % (Auto) Baso % (Auto) Neut # (Auto) Lymph # (Auto) [place] # (Auto) Eos # (Auto) Baso # (Auto) WBC Differential Differential Comment Sodium Potassium Chloride Carbon Dioxide Anion Gap BUN Creatinine Estimated GFR POC Glucose 127 H 123 H 117 H Random Glucose Calcium Total Bilirubin AST ALT Alkaline Phosphatase Total Protein Albumin 08/22/18 08/22/18 08/22/18 08:12 08:12 14:57 WBC 9.9 RBC 4.57 Hgb 14.9 Hct 44.3 MCV 96.9 MCH 32.6 MCHC 33.6 RDW 13.7 Plt Count 276 MPV 9.2 Neut % (Auto) 73.1 H Lymph % (Auto) 16.6 [place] % (Auto) 7.2 Eos % (Auto) 2.8 Baso % (Auto) 0.3 Neut # (Auto) 7.3 Lymph # (Auto) 1.7 [place] # (Auto) 0.7 Eos # (Auto) 0.3 Baso # (Auto) 0.0 WBC Differential . Differential Comment Auto diff final Sodium 137 Potassium 4.2 Chloride 102 Carbon Dioxide 29.0 Anion Gap 6 BUN 20 H Creatinine 0.69 Estimated GFR 87 L POC Glucose 120 H Random Glucose 123 H Calcium 10.7 H Total Bilirubin 0.9 AST 23 ALT 25 Alkaline Phosphatase 95 Total Protein 7.4 Albumin 2.8 L Assessment and Plan - Assessment (1) Diabetes Code(s): E11.9 - Type 2 diabetes mellitus without complications Status: Chronic (2) HTN (hypertension) Code(s): I10 - Essential (primary) hypertension Status: Chronic (3) Depression Code(s): F32.9 - Major depressive disorder, single episode, unspecified Status : Chronic (4) Cervical spinal cord injury Code(s): S14.109A - Unspecified injury at unspecified level of cervical spinal cord, initial encounter Status: Acute (5) Stenosis of cervical spine with myelopathy Code(s): M47.12 - Other spondylosis with myelopathy, cervical region Status: Chronic - Plan This is a 58-year-old CF with a PMHx DM and spinal stenosis who presented with acute onset of bilateral arm and leg weakness for the past 4 days. Per MRI of the C-spine had an extruded disc fragment at C3-C4 eccentric to the right causing severe spinal canal stenosis with associated cord edema. Patient is s/p anterior cervical C3-4 interbody fusion, C3 and C4 partial corpectomies, anterior C3-4 cervical plate placement, C3-4 interbody cage placement, and microsurgical technique on 08/[address] Kam, POD#4, we have been consulted for medical management, HD #5 1. Postop Care s/p Anterior cervical C3-4 interbody fusion; C3 and C4 partial corpectomies; anterior C3-4 cervical plate placement; C3-4 interbody cage placement; microsurgical technique on 08/[address] Kam. -Further management per neurosurgery -Cont. PT, Zanaflex, and Morphine/Percocet PRN Reccs Per NeuroSx on 08/20 58-year-old female s/p C3/4 partial corpectomy ACDF for cervical myelopathy on 08/17/18. PT- mobilize w/ collar - OT Anticipate rehab given significant preop weakness, she is improving after surgery Transfer to floor when ok with primary service, likely later this evening or tomorrow 2. Urinary Incontinence -Due to above -Wise 3. COPD -DuoNeb scheduled and as needed -On home O2 at home at night only -Cont. Symbicort, Singulair, and Spiriva 4. Depression -Cont. Cymbalta and Paroxetine 5. Hypothyroidism -Cont. Levothyroxine 6. Hyperlipidemia -Cont. Pravastatin 7. Diabetes Mellitus, Type II -BS stable -Cont. Levemir 10U BID -Cont. Insulin sliding scale 8. Hypertension -Not well controlled, cont. Metoprolol and Norvasc, adding ABEBE due to CM -Cont. Clonidine PRN 9. DVT/GI prophylaxis -Teds SCDs -Lovenox -Pepcid 10. Dispo: F/U BP and neurosx reccs Code Status: full Discussed Condition With: patient, RN
--- NOTE | 2018-08-22 18:02 | P.PNNS ---
Subjective Interval history: Pt awake and alert. States some neck soreness but overall doing well. Pt has chronic paresthesias and numbness in hands. Physical Exam Vital signs: Vital Signs 08/21/18 20:00 08/22/18 00:00 08/22/18 04:00 Temperature 98.3 F 98 F 98 F Pulse Rate 105 H 97 H 106 H Respiratory Rate 18 18 18 Blood Pressure 148/79 H 142/76 H 142/78 H Pulse Oximetry 95 95 97 08/22/18 08:00 08/22/18 12:00 08/22/18 12:30 Temperature 98.2 F 97.8 F Pulse Rate 77 69 Respiratory Rate 20 20 18 Blood Pressure 193/90 H 156/70 H Pulse Oximetry 92 L 98 08/22/18 16:00 08/22/18 17:33 Temperature 97.9 F Pulse Rate 81 Respiratory Rate 20 18 Blood Pressure Pulse Oximetry 97 Intake & Output 08/21/18 08/22/18 08/22/18 18:59 06:59 18:59 Intake Total 600 / 600 240 / 240 Output Total 600 / 600 700 / 700 Balance 0 / 0 -460 / -460 Intake: Oral 600 / 600 240 / 240 Output: Urine 600 / 600 Urine Amount (Catheter) 700 / 700 Female External 700 / 700 Other: Date of Last Bowel Movement 08/22/18 - Constitutional no acute distress - Routine HEENT Exam Head: Present: normocephalic Eye: Present: PERRL. Absent: conjunctival icterus ENT: Present: oropharynx clear - Routine Neck Exam Present: trachea midline - Routine Respiratory Exam Present: CTA bilaterally. Absent: respiratory distress, rhonchi, wheezes - Routine Cardiovascular Exam Present: RRR, S1, S2. Absent: murmur - Routine Abdominal Exam Present: soft, normoactive bowel sounds. Absent: distended - Routine Skin Exam Absent: cyanosis, erythema - Routine Neurological Exam Present: alert, oriented X3, sensory deficit (numbness in hands.), motor deficit (Weakness in hands.) - Urinary Catheter Management Indwelling Urethral Catheter Cath placed during this visit: yes, but has since been removed by the nurse Reason for continuing: Hourly intake/output Insertion date: 08/17/18 Removal date: 08/18/18 Removal time: 18:15 Female External Cath placed during this visit: no Reason for continuing: Not indwelling catheter Assessment and Plan - Assessment (1) Cervical spinal cord injury Code(s): S14.109A - Unspecified injury at unspecified level of cervical spinal cord, initial encounter Status: Acute (2) Stenosis of cervical spine with myelopathy Code(s): M47.12 - Other spondylosis with myelopathy, cervical region Status: Chronic (3) Chronic incomplete quadriplegia Code(s): G82.50 - Quadriplegia, unspecified Status: Acute (4) 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 PT- mobilize w/ collar - OT Anticipate rehab given significant preop weakness, will look into options if any.
[2018-08-22] MEDS: Montelukast 10 MG Tablet PO SCH (18:35)
[2018-08-22] MEDS: Lisinopril 5 MG Tablet PO SCH (18:35)
--- NOTE | 2018-08-22 19:50 | P.CONREH ---
History of Present Illness Service: Physical medicine and rehabilitation Consult date: 08/22/18 Reason for Consult: Comprehensive rehabilitation evaluation Primary Care Provider: UNKNOWN Chief Complaint: Weakness and numbness History of Present Illness: Mary Lou Teran is a 58-year-old [id number] female admitted to [facility] 08/17/18 with a 4-day history of upper and lower extremity weakness and one month history of urinary incontinence. MRI the cervical spine showed: Extruded disc fragment at C3-C4 eccentric to the right causing severe spinal canal stenosis with associated cord edema and central right-sided disc protrusion at C 5C6 compromising the nerve root exit zone. On 08/17/18 she underwent anterior cervical C3-4 interbody fusion; C3 and C4 partial corpectomies; anterior C3-4 cervical plate placement; C3-4 interbody cage placement; microsurgical technique Review of Systems Constitutional: Denies headache(s) Eyes: Denies double vision Ears, Nose, Mouth, and Throat: Denies abnormal hearing, Denies difficulty swallowing Cardiovascular: Denies chest pain Respiratory: Denies shortness of breath Gastrointestinal: Reports constipation, Denies abdominal pain Genitourinary: Reports urinary incontinence, Reports urinary urgency Musculoskeletal: Reports numbness Skin/Breast: Denies rash Neurologic: Reports numbness, Reports tingling/numbness/burning sensations, Reports unsteadiness Psychiatric: Denies confusion Endocrine: Denies increased thirst Hematologic/Lymphatic: Denies easy bruising Allergic/Immunologic: Denies throat swelling PMFSH - History History Provided By: Patient - Medical History Medical History: Medical History (Last Reviewed 08/29/18 @ 11:52 by Sade Guzman MD) Hx of diabetes mellitus Hx of spinal stenosis Hypertension Morbid obesity - Surgical History Surgical History: Surgical History (Last Reviewed 08/29/18 @ 11:52 by Sade Guzman MD) H/O Spinal surgery - Family History Family History: Family History (Last Reviewed 08/29/18 @ 11:52 by Sade Guzman MD) Other Family history normal - Social History I have reviewed the patient's Social History: Yes - Tobacco History Second Hand Smoke Exposure: Yes Tobacco Use In Past 30 Days: Yes Smoking Status: Current every day smoker Tobacco Type: Cigarettes - Alcohol History How Often Do You Have a Drink Containing Alcohol: 2 to 3 times a week - Substance Use History Substance History: No History of Abuse - Travel History Recent Travel in the [place] Within the Last 8 Weeks: No Recent Travel Out of the Country Within the Last 8 Weeks: No - Immunization History Tetanus Immunization: Unsure Hx Influenza Vaccine This Season: No Medications and Allergies Active Medications: Active Medications Acetaminophen (Tylenol) 650 mg PO Q6H PRN PRN Reason: PAIN 1-10 AND/OR FEVER >101F Al Hydrox/Mg Hydrox/Simethicone (Mag-Al Plus Susp Liq) 30 ml PO Q6H PRN PRN Reason: DYSPEPSIA Al Hydroxide/Mg Hydroxide (Milk Of Magnesia Liq) 30 ml PO Q12H PRN PRN Reason: Mild Constipation Last Admin: 08/21/18 08:59 Dose: 30 ml Albuterol (Duoneb Neb (Prn)) 1 ampul NEB Q2HR NEB PRN PRN Reason: WHEEZING Albuterol (Albuterol Neb (Prn)) 2.5 mg NEB Q4HR NEB PRN PRN Reason: WHEEZING Amlodipine Besylate (Norvasc) 10 mg PO DAILY [facility] Last Admin: 08/22/18 14:53 Dose: 10 mg Bisacodyl (Dulcolax Supp) 10 mg RECTAL DAILY PRN PRN Reason: SEVERE CONSITIPATION Budesonide/Formoterol Fumarate (Symbicort 160/4.5 Mcg Inh) 2 puff INH BID [facility] Last Admin: 08/22/18 09:42 Dose: 2 puff Clonidine HCl (Catapres) 0.1 mg NG/OG Q6H PRN PRN Reason: SYS BP GREATER THAN 170 MMHG Last Admin: 08/21/18 17:39 Dose: 0.1 mg Dextrose (D50w Vial) 50 ml IV.PUSH UNSCH PRN PRN Reason: PER HYPOGLYCEMIA PROTOCOL Duloxetine HCl (Cymbalta) 30 mg PO BID [facility] Last Admin: 08/22/18 09:40 Dose: 30 mg Enoxaparin Sodium (Lovenox Inj) 40 mg SQ DAILY [facility] Last Admin: 08/22/18 09:40 Dose: 40 mg Famotidine (Pepcid Pf Inj) 20 mg IV.PUSH Q12HR [facility] Last Admin: 08/22/18 09:39 Dose: 20 mg Glucagon (Glucagon Inj) 1 mg OTHER PRN PRN PRN Reason: for Hypoglycemia Protocol Hydromorphone HCl (Dilaudid Pf Inj) 1 mg IV.PUSH Q4H PRN PRN Reason: PAIN SCALE 6 TO 10 Last Admin: 08/22/18 11:54 Dose: 1 mg Calcium Gluconate 1 gm/ Sodium (Chloride) 110 mls @ 110 mls/hr IV.SIG UNSCH PRN PRN Reason: SEE LABEL COMMENTS Magnesium Sulfate 2 gm/ Sodium (Chloride) 100 mls @ 100 mls/hr IV.SIG UNSCH PRN PRN Reason: MAGNESIUM LESS THAN 2 Sodium Chloride (Ns Inj) 1,000 mls @ 100 mls/hr IV.CONT .Q10H [facility] Last Admin: 08/22/18 19:21 Dose: Not Given Insulin Aspart (Novolog Insulin Correctional Sugar Inj) 0 unit SQ Q6HR [facility]; Protocol Last Admin: 08/22/18 19:21 Dose: Not Given Insulin Detemir (Levemir Inj) 10 unit SQ BID [facility] Last Admin: 08/22/18 09:40 Dose: 10 unit Labetalol HCl (Trandate Inj) 10 mg IV.PUSH Q1H PRN PRN Reason: SYS BP GREATER THAN 170 MM[facility] Last Admin: 08/18/18 21:00 Dose: 10 mg Lactulose (Lactulose Liq) 30 ml PO DAILY PRN PRN Reason: SEVERE CONSITIPATION Last Admin: 08/22/18 05:19 Dose: 30 ml Levothyroxine Sodium (Synthroid) 88 mcg PO DAILY@0600 [facility] Last Admin: 08/22/18 05:19 Dose: 88 mcg Lisinopril (Prinivil) 5 mg PO DAILY [facility] Last Admin: 08/22/18 18:35 Dose: 5 mg Menthol ([place]) 1 lozenge BUCCAL UNSCH PRN PRN Reason: SORE THROAT Metoprolol Tartrate (Lopressor) 25 mg PO BID [facility] Last Admin: 08/22/18 09:40 Dose: 25 mg Miscellaneous (Pill Splitter) 1 each OTHER UNSCH PRN PRN Reason: SEE LABEL COMMENTS Last Admin: 08/21/18 08:52 Dose: 1 each Montelukast Sodium (Singulair) 10 mg PO QPM [facility] Last Admin: 08/22/18 18:35 Dose: 10 mg Morphine Sulfate (Morphine Inj) 4 mg IV.PUSH Q4H PRN PRN Reason: Pain Scale 7 to 10 Last Admin: 08/22/18 05:27 Dose: 4 mg Nicotine (Habitrol 14 Mg Patch.24 Hr) 1 patch T-DERMAL DAILY [facility] Last Admin: 08/22/18 09:40 Dose: 1 patch Ondansetron HCl (Zofran Inj) 4 mg IV.PUSH Q6H PRN PRN Reason: NAUSEA OR VOMITING Oxycodone/Acetaminophen (Percocet 5/325 Mg) 1 tab PO Q6H PRN PRN Reason: PAIN SCALE 1 TO 10 IF KIRK PO Last Admin: 08/22/18 16:13 Dose: 1 tab Paroxetine HCl (Paxil) 20 mg PO DAILY [facility] Last Admin: 08/22/18 09:40 Dose: 20 mg Patch Removal (Remove Old Patch) 1 each T-DERMAL DAILY [facility] Last Admin: 08/22/18 09:42 Dose: 1 each Pravastatin Sodium (Pravachol) 40 mg PO QPM [facility] Last Admin: 08/22/18 18:35 Dose: 40 mg Promethazine HCl (Phenergan Inj) 25 mg IM Q4H PRN PRN Reason: NAUSEA OR VOMITING Senna/Docusate Sodium (Leida-Colace) 1 tab PO BID [facility] Last Admin: 08/22/18 09:40 Dose: 1 tab Sennosides (Senokot) 17.2 mg PO Q12H PRN PRN Reason: Moderate Constipation Sodium Chloride (Ns Flush) 2 ml IV.FLUSH BID [facility] Last Admin: 08/22/18 09:41 Dose: 2 ml Sodium Chloride (Ns Flush) 2 ml IV.FLUSH PRN PRN PRN Reason: FLUSH AFTER USING IV ACCESS Temazepam (Restoril) 30 mg PO HS PRN PRN Reason: SLEEP Last Admin: 08/21/18 00:59 Dose: 30 mg Tiotropium [place] (Spiriva 18 Mcg Inh) 18 mcg INH DAILY [facility] Last Admin: 08/22/18 09:42 Dose: 18 mcg Tizanidine HCl (Zanaflex) 4 mg PO TID [facility] Last Admin: 08/22/18 18:35 Dose: 4 mg Allergies Allergy/AdvReac Type Severity Reaction Status Date / Time No Known Allergies Allergy Verified 08/16/18 22:35 Home Medications Medication Instructions Recorded Confirmed Type albuterol sulfate 1.25 mg INHALATION QID PRN 08/16/18 08/16/18 History clonidine HCl 0.1 mg PO BID 08/16/18 08/16/18 History duloxetine 30 mg PO BID 08/16/18 08/16/18 History duloxetine 30 mg PO BID 08/16/18 08/16/18 History fluticasone-salmeterol [Advair 1 inh INHALATION BID 08/16/18 08/16/18 History Diskus] furosemide 40 mg PO BID 08/16/18 08/16/18 History furosemide 40 mg PO DAILY 08/16/18 08/16/18 History levothyroxine 88 mcg PO DAILY 08/16/18 08/16/18 History levothyroxine 88 mcg PO DAILY 08/16/18 08/16/18 History lisinopril-hydrochlorothiazide 1 tab PO DAILY 08/16/18 08/16/18 History montelukast 10 mg PO QPM 08/16/18 08/16/18 History montelukast 10 mg PO QPM 08/16/18 08/16/18 History naproxen 500 mg PO BID 08/16/18 08/16/18 History omeprazole 40 mg PO DAILY 08/16/18 08/16/18 History oxycodone-acetaminophen 1 tab PO Q4H PRN 08/16/18 08/16/18 History paroxetine HCl 20 mg PO DAILY 08/16/18 08/16/18 History paroxetine HCl 20 mg PO DAILY 08/16/18 08/16/18 History pioglitazone 45 mg PO DAILY 08/16/18 08/16/18 History simvastatin 20 mg PO QPM 08/16/18 08/16/18 History simvastatin 20 mg PO QPM 08/16/18 08/16/18 History sitagliptin-metformin [Janumet] 1 tab PO BID 08/16/18 08/16/18 History temazepam 30 mg PO PRN 08/16/18 History tiotropium bromide [Spiriva with 1 cap INHALATION DAILY 08/16/18 08/16/18 History HandiHaler] tizanidine 4 mg PO TID 08/16/18 08/16/18 History Exam - Physical Examination Vital Signs / I&O: Vital Signs 08/21/18 20:00 08/22/18 00:00 08/22/18 04:00 Temperature 98.3 F 98 F 98 F Pulse Rate 105 H 97 H 106 H Respiratory Rate 18 18 18 Blood Pressure 148/79 H 142/76 H 142/78 H Pulse Oximetry 95 95 97 08/22/18 08:00 08/22/18 12:00 08/22/18 12:30 Temperature 98.2 F 97.8 F Pulse Rate 77 69 Respiratory Rate 20 20 18 Blood Pressure 193/90 H 156/70 H Pulse Oximetry 92 L 98 08/22/18 16:00 08/22/18 17:33 Temperature 97.9 F Pulse Rate 81 Respiratory Rate 20 18 Blood Pressure Pulse Oximetry 97 Intake & Output 08/22/18 08/22/18 08/23/18 06:59 18:59 06:59 Intake Total 240 / 240 Output Total 700 / 700 Balance -460 / -460 - Intake: Oral 240 / 240 Output: Stool Urine Amount (Catheter) 700 / 700 Female External 700 / 700 Other: Date of Last Bowel Movement 08/22/18 Intake & Output 08/20/18 08/21/18 08/22/18 08/23/18 06:59 06:59 06:59 06:59 Intake Total 240 / 240 120 / 120 840 / 840 Output Total 2900 / 2900 1300 / 1300 Balance -2660 / -2660 120 / 120 -460 / -460 - Weight 165.7 kg General: No acute distress, Other (Answers questions appropriately and follows commands well) Respiratory: Lungs CTA, Non-labored respirations, BS equal Gastrointestinal: Positive bowel sounds, Non-distended, Non-tender Date of Last Bowel Movement: 08/22/18 Cardiovascular: Normal rate, Regular rhythm Musculoskeletal: ROM (Within functional limits) Psychiatric: Cooperative, Appropriate mood & affect - Neurologic Orientation: oriented to: Self, Situation Neurologic: Cranial nerves (Grossly intact 2 through 12) Motor: Right Upper Extremity (4/5), Left Upper Extremity (4/5), Right Lower Extremity (4/5), Left Lower Extremity (4/5) Spasticity: None noted Sensory: Decreased to light touch in the hands bilaterally and distal to the ankles bilaterally DTRs: Normal (1+ throughout) Clonus: Negative Results - Labs CBC & Chem 7: 08/25/18 07:37 08/26/18 07:07 Labs: Laboratory Results - last 24 hr 08/21/18 08/22/18 08/22/18 23:17 05:18 08:12 WBC 9.9 RBC 4.57 Hgb 14.9 Hct 44.3 MCV 96.9 MCH 32.6 MCHC 33.6 RDW 13.7 Plt Count 276 MPV 9.2 Neut % (Auto) 73.1 H Lymph % (Auto) 16.6 [place] % (Auto) 7.2 Eos % (Auto) 2.8 Baso % (Auto) 0.3 Neut # (Auto) 7.3 Lymph # (Auto) 1.7 [place] # (Auto) 0.7 Eos # (Auto) 0.3 Baso # (Auto) 0.0 WBC Differential . Differential Comment Auto diff final Sodium Potassium Chloride Carbon Dioxide Anion Gap BUN Creatinine Estimated GFR POC Glucose 123 H 117 H Random Glucose Calcium Total Bilirubin AST ALT Alkaline Phosphatase Total Protein Albumin 08/22/18 08/22/18 08:12 14:57 WBC RBC Hgb Hct MCV MCH MCHC RDW Plt Count MPV Neut % (Auto) Lymph % (Auto) [place] % (Auto) Eos % (Auto) Baso % (Auto) Neut # (Auto) Lymph # (Auto) [place] # (Auto) Eos # (Auto) Baso # (Auto) WBC Differential Differential Comment Sodium 137 Potassium 4.2 Chloride 102 Carbon Dioxide 29.0 Anion Gap 6 BUN 20 H Creatinine 0.69 Estimated GFR 87 L POC Glucose 120 H Random Glucose 123 H Calcium 10.7 H Total Bilirubin 0.9 AST 23 ALT 25 Alkaline Phosphatase 95 Total Protein 7.4 Albumin 2.8 L Assessment and Plan (1) Stenosis of cervical spine with myelopathy Status: Chronic Code(s): M47.12 - Other spondylosis with myelopathy, cervical region - Plan Assessment: 1. Cervical myelopathy status post anterior cervical C3-4 interbody fusion; C3 and C4 partial corpectomies; anterior C3-4 cervical plate placement; C3-4 interbody cage placement 08/17/18 2. Additional past medical history as above Recommendations: 1. Patient is progressing with mobility and now min-mod assist for transfers and ambulating 1-2 feet with walker. Continue to mobilize 2. OT addressing ADL"s and patient requires max assist for feeding 3. ST for swallow and nectar thick liquids and regular diet 4. Case management addressing discharge planning and anticipate inpatient rehabilitation. 5. Will follow while hospitalized and at discharge Thank you for this consult.
[2018-08-22] MEDS: Temazepam 15 MG Capsule PO PRN (23:29)
[2018-08-23] MEDS: Insulin NovoLOG Aspart Correctional Sugar Inj SQ SCH ×4 (00:06→17:02)
[2018-08-23] MEDS: Sod Chloride 0.9% Inj 1,000 ML IV.CONT SCH ×3 (00:07→20:51)
[2018-08-23] MEDS: Levothyroxine 88 MCG Tablet PO SCH (06:17)
[2018-08-23 08:54] LABS: Baso # (Auto) 0.1 th/mm3 (0.0-0.2); Baso % (Auto) 0.5 % (0.0-2.0); Eos # (Auto) 0.2 th/mm3 (0.0-0.4); Eos % (Auto) 1.5 % (0.0-4.0); Hematocrit 43.5 % (35.0-46.0); Hemoglobin 15.4 gm/dL (11.6-15.3); Lymph # (Auto) 1.9 th/mm3 (1.0-4.8); Lymph % (Auto) 16.4 % (9.0-44.0); Mean Corpuscular HGB Conc 35.5 % (32.0-36.0); Mean Corpuscular Hemoglobin 34.1 pg (27.0-34.0); Mean Platelet Volume 8.9 fL (7.0-11.0); Mono # (Auto) 0.9 th/mm3 (0.0-0.9); Mono % (Auto) 7.5 % (0.0-8.0); Neut # (Auto) 8.5 th/mm3 (1.8-7.7); Neut % (Auto) 74.1 % (16.0-70.0); Platelet Count 303 th/mm3 (150-450); Red Blood Count 4.53 mil/mm3 (4.00-5.30); Red Cell Distribution Width 13.8 % (11.6-17.2); White Blood Count 11.5 th/mm3 (4.0-11.0)
[2018-08-23] MEDS: Lisinopril 5 MG Tablet PO SCH (08:55)
[2018-08-23] MEDS: Metoprolol Tartrate 25 MG Tablet PO SCH ×2 (08:55→21:58)
[2018-08-23] MEDS: amLODIPine 10 MG Tablet PO SCH (08:55)
[2018-08-23] MEDS: Famotidine PF Inj 20 MG/2 ML Vial IV.PUSH SCH ×2 (08:55→21:53)
[2018-08-23] MEDS: Senna/Docusate Sodium 8.6/50 MG Tablet PO SCH ×2 (08:55→20:57)
[2018-08-23] MEDS: Insulin Detemir Inj 1,000 UNIT/10 ML Vial SQ SCH ×2 (08:56→20:59)
[2018-08-23] MEDS: Tiotropium Bromide 18 MCG/ACT Inhaler INH SCH (08:57)
[2018-08-23] MEDS: Budesonide-Formoterol 160/4.5 MCG 6 GM Inhaler INH SCH ×2 (08:58→21:58)
[2018-08-23] MEDS: Enoxaparin Inj 40 MG/0.4 ML Syringe SQ SCH (09:00)
[2018-08-23 09:24] LABS: Albumin 3.1 g/dL (3.4-5.0); Anion Gap 6 meq/L (5-15); Aspartate Aminotransferase 17 U/L (15-37); Blood Urea Nitrogen 22 mg/dL (7-18); Carbon Dioxide 30.6 meq/L (21.0-32.0); Chloride 99 meq/L (98-107); Glomerular Filtration Rate 70 mL/min (>89); Glucose,Random 147 mg/dL (74-106); Potassium 4.2 meq/L (3.5-5.1); Sodium 136 meq/L (136-145)
[2018-08-23 09:26] LABS: Alanine Aminotransferase 27 U/L (10-53)
[2018-08-23 09:28] LABS: Alkaline Phosphatase 109 U/L (45-117); Total Protein 8.2 g/dL (6.4-8.2)
--- NOTE | 2018-08-23 11:40 | P.PN ---
Subjective Interval history: Patient doing well. Although reports increased anxiety. Patient reports that she was previously on Xanax but that her PCP would no longer prescribe that for her. Patient does take daily medications for anxiety but reports increased anxiety due to her difficulty with physical therapy. Patient otherwise doing well, tolerating p.o., voiding/stooling well. No overnight concerns per RN. Physical Exam Vital signs: Vital Signs 08/22/18 12:00 08/22/18 12:30 08/22/18 16:00 Temperature 97.8 F 97.9 F Pulse Rate 69 81 Respiratory Rate 20 18 20 Blood Pressure 156/70 H Pulse Oximetry 98 97 08/22/18 17:33 08/22/18 20:00 08/23/18 00:00 Temperature 98.4 F 98.7 F Pulse Rate 73 69 Respiratory Rate 18 17 15 Blood Pressure 135/70 185/85 H Pulse Oximetry 96 96 08/23/18 06:25 08/23/18 06:56 08/23/18 08:00 Temperature 98.2 F Pulse Rate 80 96 H Respiratory Rate 12 20 Blood Pressure 187/96 H 186/92 H Pulse Oximetry 96 Intake & Output 08/22/18 08/23/18 08/23/18 18:59 06:59 18:59 Output Total / 400 / 400 Balance -1 / -1 -400 / -400 Output: Urine 400 / 400 Stool Other: Date of Last Bowel Movement 08/22/18 08/22/18 08/21/18 Narrative: GENERAL: Well-nourished female, in no acute distress, sitting up in bed, nasal cannula in place SKIN: Warm and dry. HEENT: Normocephalic. No scleral icterus. No injection or drainage. PERRLA, MOM. NECK: Supple, trachea midline. No JVD or lymphadenopathy. Collar in place. CARDIOVASCULAR: Regular rate and rhythm without murmurs, gallops, or rubs. RESPIRATORY: Breath sounds equal bilaterally. No accessory muscle use. GASTROINTESTINAL: Abdomen soft, non-tender, nondistended. MUSCULOSKELETAL: No cyanosis, or edema. Left knee brace. BACK: Nontender without obvious deformity. No CVA tenderness. NEURO: Bilateral LE motor strength 4/5, Bilateral UE 5/5. - Urinary Catheter Management Indwelling Urethral Catheter Cath placed during this visit: yes, but has since been removed by the nurse Reason for continuing: Hourly intake/output Insertion date: 08/17/18 Removal date: 08/18/18 Removal time: 18:15 Female External Cath placed during this visit: no Reason for continuing: Not indwelling catheter Results - Labs CBC & Chem 7: 08/23/18 08:37 08/23/18 08:37 Laboratory Results - last 24 hr 08/22/18 08/22/18 08/22/18 14:57 21:11 23:37 WBC RBC Hgb Hct MCV MCH MCHC RDW Plt Count MPV Neut % (Auto) Lymph % (Auto) [place] % (Auto) Eos % (Auto) Baso % (Auto) Neut # (Auto) Lymph # (Auto) [place] # (Auto) Eos # (Auto) Baso # (Auto) WBC Differential Differential Comment Sodium Potassium Chloride Carbon Dioxide Anion Gap BUN Creatinine Estimated GFR POC Glucose 120 H 136 H 133 H Random Glucose Calcium Total Bilirubin AST ALT Alkaline Phosphatase Total Protein Albumin 08/23/18 08/23/18 08/23/18 06:22 08:37 08:37 WBC 11.5 H RBC 4.53 Hgb 15.4 H Hct 43.5 MCV 96.0 MCH 34.1 H MCHC 35.5 RDW 13.8 Plt Count 303 MPV 8.9 Neut % (Auto) 74.1 H Lymph % (Auto) 16.4 [place] % (Auto) 7.5 Eos % (Auto) 1.5 Baso % (Auto) 0.5 Neut # (Auto) 8.5 H Lymph # (Auto) 1.9 [place] # (Auto) 0.9 Eos # (Auto) 0.2 Baso # (Auto) 0.1 WBC Differential . Differential Comment Auto diff final Sodium 136 Potassium 4.2 Chloride 99 Carbon Dioxide 30.6 Anion Gap 6 BUN 22 H Creatinine 0.84 Estimated GFR 70 L POC Glucose 144 H Random Glucose 147 H Calcium 11.0 H Total Bilirubin 1.0 AST 17 ALT 27 Alkaline Phosphatase 109 Total Protein 8.2 D Albumin 3.1 L 08/23/18 11:13 WBC RBC Hgb Hct MCV MCH MCHC RDW Plt Count MPV Neut % (Auto) Lymph % (Auto) [place] % (Auto) Eos % (Auto) Baso % (Auto) Neut # (Auto) Lymph # (Auto) [place] # (Auto) Eos # (Auto) Baso # (Auto) WBC Differential Differential Comment Sodium Potassium Chloride Carbon Dioxide Anion Gap BUN Creatinine Estimated GFR POC Glucose 157 H Random Glucose Calcium Total Bilirubin AST ALT Alkaline Phosphatase Total Protein Albumin Assessment and Plan - Assessment (1) Diabetes Code(s): E11.9 - Type 2 diabetes mellitus without complications Status: Chronic (2) HTN (hypertension) Code(s): I10 - Essential (primary) hypertension Status: Chronic (3) Depression Code(s): F32.9 - Major depressive disorder, single episode, unspecified Status : Chronic (4) Cervical spinal cord injury Code(s): S14.109A - Unspecified injury at unspecified level of cervical spinal cord, initial encounter Status: Acute (5) Stenosis of cervical spine with myelopathy Code(s): M47.12 - Other spondylosis with myelopathy, cervical region Status: Chronic - Plan This is a 58-year-old CF with a PMHx DM and spinal stenosis who presented with acute onset of bilateral arm and leg weakness for the past 4 days. Per MRI of the C-spine had an extruded disc fragment at C3-C4 eccentric to the right causing severe spinal canal stenosis with associated cord edema. Patient is s/p anterior cervical C3-4 interbody fusion, C3 and C4 partial corpectomies, anterior C3-4 cervical plate placement, C3-4 interbody cage placement, and microsurgical technique on 08/[address] Kam, POD#5, we have been consulted for medical management, HD #6 1. Postop Care s/p Anterior cervical C3-4 interbody fusion; C3 and C4 partial corpectomies; anterior C3-4 cervical plate placement; C3-4 interbody cage placement; microsurgical technique on 08/[address] Kam. -Further management per neurosurgery -Cont. PT, Zanaflex, and Morphine/Percocet PRN Reccs Per NeuroSx on 08/22 58-year-old female s/p C3/4 partial corpectomy ACDF for cervical myelopathy on 08/17/18. PT- mobilize w/ collar - OT Anticipate rehab given significant preop weakness, will look into options if any. 2. Urinary Incontinence -Due to above -Wise 3. COPD -DuoNeb scheduled and as needed -On home O2 at home at night only, will wean day time O2 today -Cont. Symbicort, Singulair, and Spiriva 4. Depression/Anxiety -Cont. Cymbalta and Paroxetine -Adding Vistaril as needed for anxiety today (patient was previously on benzos but her PCP would no longer prescribe them, advised we will try Vistaril as it is nonaddicting and patient is already on chronic narcotics at baseline 5. Hypothyroidism -Cont. Levothyroxine 6. Hyperlipidemia -Cont. Pravastatin 7. Diabetes Mellitus, Type II -BS stable -Cont. Levemir 10U BID -Cont. Insulin sliding scale 8. Hypertension -Not well controlled, cont. Metoprolol and Norvasc, increasing Lisinopril to 10mg QD -Cont. Clonidine PRN 9. Leukocytosis WBC 11.5 from 9.9 (was greater than 12.1 on 08/18) Neg U/A on admission Neg CXR Neg Urine Cx Continue to monitor, if continues to trend up consider repeat blood cultures, chest x-ray, and UA 10. DVT/GI prophylaxis -Teds SCDs -Lovenox -Pepcid 12. Dispo: F/U BP and placement/rehab Code Status: full Discussed Condition With: patient, RN
[2018-08-23] MEDS ORDERED: Lisinopril 5 MG Tablet PO ONE (12:15)
[2018-08-23] MEDS: Montelukast 10 MG Tablet PO SCH (17:08)
--- NOTE | 2018-08-23 17:23 | P.PNNS ---
Subjective Interval history: Pt awake and alert. mild neck discomfort. No radiculopathy in UEs. Paresthesias in hands stable. Weakness in UEs and hands in particular stable. Physical Exam Vital signs: Vital Signs 08/22/18 17:33 08/22/18 20:00 08/23/18 00:00 Temperature 98.4 F 98.7 F Pulse Rate 73 69 Respiratory Rate 18 17 15 Blood Pressure 135/70 185/85 H Pulse Oximetry 96 96 08/23/18 06:25 08/23/18 06:56 08/23/18 08:00 Temperature 98.2 F Pulse Rate 80 96 H Respiratory Rate 12 20 Blood Pressure 187/96 H 186/92 H Pulse Oximetry 96 08/23/18 12:00 08/23/18 13:08 08/23/18 15:39 Temperature 98.3 F Pulse Rate 67 Respiratory Rate 20 12 12 Blood Pressure 193/89 H Pulse Oximetry 95 08/23/18 16:00 Temperature 98.3 F Pulse Rate 66 Respiratory Rate 20 Blood Pressure 162/76 H Pulse Oximetry 95 Intake & Output 08/22/18 08/23/18 08/23/18 18:59 06:59 18:59 Output Total / 400 / 400 Balance -1 / -1 -400 / -400 Output: Urine 400 / 400 Stool Other: Date of Last Bowel Movement 08/22/18 08/22/18 08/21/18 - Constitutional no acute distress - Routine HEENT Exam Head: Present: atraumatic Eye: Present: PERRL - Routine Neck Exam Comments: Pt in cervical collar. - Routine Respiratory Exam Present: CTA bilaterally. Absent: respiratory distress, rhonchi, wheezes - Routine Cardiovascular Exam Present: RRR, S1, S2. Absent: murmur - Routine Abdominal Exam Present: soft, normoactive bowel sounds. Absent: tenderness - Routine Skin Exam Absent: cyanosis, erythema Comments: Incision clean and dry without signs of infection or complication. - Routine Neurological Exam Present: alert, oriented X3, sensory deficit (Hands numbness- pt states chronic. ), motor deficit (weakness in hands in particular.), moving all extremities - Routine Psychiatric Exam Present: normal affect. Absent: anxious, agitated - Urinary Catheter Management Indwelling Urethral Catheter Cath placed during this visit: yes, but has since been removed by the nurse Reason for continuing: Hourly intake/output Insertion date: 08/17/18 Removal date: 08/18/18 Removal time: 18:15 Female External Cath placed during this visit: no Reason for continuing: Not indwelling catheter Assessment and Plan - Assessment (1) Cervical spinal cord injury Code(s): S14.109A - Unspecified injury at unspecified level of cervical spinal cord, initial encounter Status: Acute (2) Stenosis of cervical spine with myelopathy Code(s): M47.12 - Other spondylosis with myelopathy, cervical region Status: Chronic (3) Chronic incomplete quadriplegia Code(s): G82.50 - Quadriplegia, unspecified Status: Acute (4) 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 PT- mobilize w/ collar - OT Anticipate rehab given significant preop weakness, will look into options if any.
[2018-08-23] MEDS: Temazepam 15 MG Capsule PO PRN (21:58)
[2018-08-24] MEDS: Insulin NovoLOG Aspart Correctional Sugar Inj SQ SCH ×4 (03:20→17:00)
[2018-08-24] MEDS: Levothyroxine 88 MCG Tablet PO SCH (05:55)
[2018-08-24] MEDS: Sod Chloride 0.9% Inj 1,000 ML IV.CONT SCH ×2 (05:56→16:54)
[2018-08-24] MEDS: Metoprolol Tartrate 25 MG Tablet PO SCH ×2 (08:39→21:44)
[2018-08-24] MEDS: amLODIPine 10 MG Tablet PO SCH (08:39)
[2018-08-24] MEDS: Senna/Docusate Sodium 8.6/50 MG Tablet PO SCH ×2 (08:40→21:45)
[2018-08-24] MEDS: Famotidine PF Inj 20 MG/2 ML Vial IV.PUSH SCH ×2 (08:40→21:44)
[2018-08-24] MEDS: Enoxaparin Inj 40 MG/0.4 ML Syringe SQ SCH (08:44)
[2018-08-24] MEDS: Tiotropium Bromide 18 MCG/ACT Inhaler INH SCH (08:45)
[2018-08-24] MEDS: Budesonide-Formoterol 160/4.5 MCG 6 GM Inhaler INH SCH ×2 (08:45→22:00)
[2018-08-24] MEDS ORDERED: Lisinopril 10 MG Tablet PO SCH (09:00)
[2018-08-24] MEDS: Insulin Detemir Inj 1,000 UNIT/10 ML Vial SQ SCH ×2 (09:23→21:45)
[2018-08-24 11:01] LABS: Baso # (Auto) 0.1 th/mm3 (0.0-0.2); Baso % (Auto) 0.6 % (0.0-2.0); Eos # (Auto) 0.2 th/mm3 (0.0-0.4); Eos % (Auto) 1.6 % (0.0-4.0); Hematocrit 46.2 % (35.0-46.0); Hemoglobin 15.5 gm/dL (11.6-15.3); Lymph # (Auto) 1.4 th/mm3 (1.0-4.8); Lymph % (Auto) 14.1 % (9.0-44.0); Mean Corpuscular HGB Conc 33.5 % (32.0-36.0); Mean Corpuscular Hemoglobin 32.4 pg (27.0-34.0); Mean Corpuscular Volume 96.8 fL (80.0-100.0); Mean Platelet Volume 9.8 fL (7.0-11.0); Mono # (Auto) 0.6 th/mm3 (0.0-0.9); Mono % (Auto) 5.8 % (0.0-8.0); Neut # (Auto) 7.8 th/mm3 (1.8-7.7); Neut % (Auto) 77.9 % (16.0-70.0); Platelet Count 279 th/mm3 (150-450); Red Blood Count 4.77 mil/mm3 (4.00-5.30); Red Cell Distribution Width 13.7 % (11.6-17.2)
[2018-08-24 11:11] LABS: Alanine Aminotransferase 26 U/L (10-53); Albumin 2.8 g/dL (3.4-5.0); Anion Gap 8 meq/L (5-15); Aspartate Aminotransferase 21 U/L (15-37); Blood Urea Nitrogen 21 mg/dL (7-18); Calcium 10.3 mg/dL (8.5-10.1); Carbon Dioxide 26.3 meq/L (21.0-32.0); Chloride 103 meq/L (98-107); Glomerular Filtration Rate 74 mL/min (>89); Glucose,Random 219 mg/dL (74-106); Potassium 4.1 meq/L (3.5-5.1); Sodium 137 meq/L (136-145)
[2018-08-24 11:13] LABS: Alkaline Phosphatase 106 U/L (45-117); Total Protein 7.7 g/dL (6.4-8.2)
[2018-08-24] MEDS ORDERED: Lisinopril 20 MG Tablet PO SCH (11:30)
--- NOTE | 2018-08-24 11:43 | P.PN ---
Subjective Interval history: Patient doing well. Patient reports that she has frustrations with not having the strength that she would like to have. But reports that PT is getting better now that she has the knee brace. Patient is tolerating p.o., voiding/ stooling well. No other concerns. Physical Exam Vital signs: Vital Signs 08/23/18 12:00 08/23/18 13:08 08/23/18 15:39 Temperature 98.3 F Pulse Rate 67 Respiratory Rate 20 12 12 Blood Pressure 193/89 H Pulse Oximetry 95 08/23/18 16:00 08/23/18 20:00 08/24/18 00:00 Temperature 98.3 F 98.1 F 98.8 F Pulse Rate 66 75 72 Respiratory Rate 20 20 14 Blood Pressure 162/76 H 184/96 H 180/77 H Pulse Oximetry 95 94 L 91 L 08/24/18 04:00 08/24/18 08:00 08/24/18 10:42 Temperature 98.0 F 98.7 F Pulse Rate 65 73 Respiratory Rate 15 20 14 Blood Pressure 139/74 191/85 H Pulse Oximetry 94 L 94 L Intake & Output 08/23/18 08/24/18 08/24/18 18:59 06:59 18:59 Intake Total 240 / 240 Output Total 1000 / 1000 Balance 240 / 240 -1000 / -1000 Weight 61.7 kg Intake: Oral 240 / 240 Output: Urine Amount (Catheter) 1000 / 1000 Female External 1000 / 1000 Other: Date of Last Bowel Movement 08/21/18 08/22/18 Narrative: GENERAL: Well-nourished female, in no acute distress, sitting up in bed, nasal cannula in place SKIN: Warm and dry. HEENT: Normocephalic. No scleral icterus. No injection or drainage. PERRLA, MOM. NECK: Supple, trachea midline. No JVD or lymphadenopathy. Collar in place. CARDIOVASCULAR: Regular rate and rhythm without murmurs, gallops, or rubs. RESPIRATORY: Breath sounds equal bilaterally. No accessory muscle use. GASTROINTESTINAL: Abdomen soft, non-tender, nondistended. MUSCULOSKELETAL: No cyanosis, or edema. Left knee brace. BACK: Nontender without obvious deformity. No CVA tenderness. NEURO: Bilateral LE motor strength 4/5, Bilateral UE 5/5. - Urinary Catheter Management Indwelling Urethral Catheter Cath placed during this visit: yes, but has since been removed by the nurse Reason for continuing: Not indwelling catheter Insertion date: 08/17/18 Removal date: 08/18/18 Removal time: 18:15 Female External Cath placed during this visit: no Reason for continuing: Not indwelling catheter Results - Labs CBC & Chem 7: 08/24/18 10:10 08/24/18 10:10 Laboratory Results - last 24 hr 08/23/18 08/23/18 08/23/18 11:13 16:30 20:31 WBC RBC Hgb Hct MCV MCH MCHC RDW Plt Count MPV Neut % (Auto) Lymph % (Auto) [place] % (Auto) Eos % (Auto) Baso % (Auto) Neut # (Auto) Lymph # (Auto) [place] # (Auto) Eos # (Auto) Baso # (Auto) WBC Differential Differential Comment Hematology Comments Sodium Potassium Chloride Carbon Dioxide Anion Gap BUN Creatinine Estimated GFR POC Glucose 157 H 110 205 H Random Glucose Calcium Total Bilirubin AST ALT Alkaline Phosphatase Total Protein Albumin 08/24/18 08/24/18 08/24/18 00:16 05:54 09:26 WBC RBC Hgb Hct MCV MCH MCHC RDW Plt Count MPV Neut % (Auto) Lymph % (Auto) [place] % (Auto) Eos % (Auto) Baso % (Auto) Neut # (Auto) Lymph # (Auto) [place] # (Auto) Eos # (Auto) Baso # (Auto) WBC Differential Differential Comment Hematology Comments Sodium Potassium Chloride Carbon Dioxide Anion Gap BUN Creatinine Estimated GFR POC Glucose 104 131 H 154 H Random Glucose Calcium Total Bilirubin AST ALT Alkaline Phosphatase Total Protein Albumin 08/24/18 08/24/18 10:10 10:10 WBC 10.0 RBC 4.77 Hgb 15.5 H Hct 46.2 H MCV 96.8 MCH 32.4 MCHC 33.5 RDW 13.7 Plt Count 279 MPV 9.8 Neut % (Auto) 77.9 H Lymph % (Auto) 14.1 [place] % (Auto) 5.8 Eos % (Auto) 1.6 Baso % (Auto) 0.6 Neut # (Auto) 7.8 H Lymph # (Auto) 1.4 [place] # (Auto) 0.6 Eos # (Auto) 0.2 Baso # (Auto) 0.1 WBC Differential . Differential Comment Auto diff final Hematology Comments Sodium 137 Potassium 4.1 Chloride 103 Carbon Dioxide 26.3 Anion Gap 8 BUN 21 H Creatinine 0.80 Estimated GFR 74 L POC Glucose Random Glucose 219 H Calcium 10.3 H Total Bilirubin 0.7 AST 21 ALT 26 Alkaline Phosphatase 106 Total Protein 7.7 Albumin 2.8 L Assessment and Plan - Assessment (1) Diabetes Code(s): E11.9 - Type 2 diabetes mellitus without complications Status: Chronic (2) HTN (hypertension) Code(s): I10 - Essential (primary) hypertension Status: Chronic (3) Depression Code(s): F32.9 - Major depressive disorder, single episode, unspecified Status : Chronic (4) Cervical spinal cord injury Code(s): S14.109A - Unspecified injury at unspecified level of cervical spinal cord, initial encounter Status: Acute (5) Stenosis of cervical spine with myelopathy Code(s): M47.12 - Other spondylosis with myelopathy, cervical region Status: Chronic - Plan This is a 58-year-old CF with a PMHx DM and spinal stenosis who presented with acute onset of bilateral arm and leg weakness for the past 4 days. Per MRI of the C-spine had an extruded disc fragment at C3-C4 eccentric to the right causing severe spinal canal stenosis with associated cord edema. Patient is s/p anterior cervical C3-4 interbody fusion, C3 and C4 partial corpectomies, anterior C3-4 cervical plate placement, C3-4 interbody cage placement, and microsurgical technique on 08/[address] Kam, POD#6, HD #8 1. Postop Care s/p Anterior cervical C3-4 interbody fusion; C3 and C4 partial corpectomies; anterior C3-4 cervical plate placement; C3-4 interbody cage placement; microsurgical technique on 08/[address] Kam -Further management per neurosurgery, appreciate assistance -Cont. PT, Zanaflex, and Morphine/Percocet PRN -Pending rehab placement Reccs Per NeuroSx on 08/23 58-year-old female s/p C3/4 partial corpectomy ACDF for cervical myelopathy on 08/17/18. PT- mobilize w/ collar - OT Anticipate rehab given significant preop weakness, will look into options if any. 2. Urinary Incontinence -Due to above (cervical myelopathy) -Wise in place 3. COPD -DuoNeb scheduled and as needed -On home O2 at home at night only, will attempt to wean day time O2 -Cont. Symbicort, Singulair, and Spiriva 4. Depression/Anxiety -Cont. Cymbalta and Paroxetine -Cont. Vistaril PRN (patient was previously on benzos but her PCP would no longer prescribe them, advised we will try Vistaril as it is nonaddicting and patient is already on chronic narcotics at baseline). 5. Hypothyroidism -Cont. Levothyroxine 6. Hyperlipidemia -Cont. Pravastatin 7. Diabetes Mellitus, Type II -BS stable -Cont. Levemir 10U BID (at home on and Pioglitazone) -Cont. Insulin sliding scale while IP 8. Hypertension -Not well controlled, cont. Metoprolol and Norvasc (started here), and increasing Lisinopril to 20mg/12.5mg HCTZ, resumed home Lasix today as well -Cont. Clonidine PRN ( is on BID scheduled at home) resume if needed 9. Leukocytosis, resolved WBC 10 to today from 11.5 Neg U/A on admission Neg CXR Neg Urine Cx 10. DVT/GI prophylaxis -Teds SCDs -Lovenox -Pepcid 12. Dispo: F/U BP and placement/rehab Code Status: full Discussed Condition With: patient, RN
[2018-08-24] MEDS ORDERED: Non-Formulary Drug (Lisinopril-Hydrochlorothiazide [Lisinopril-Hydrochlorothiazide] 1 TAB) PO SCH (11:45)
[2018-08-24] MEDS: hydroCHLOROthiazide 25 MG Tablet PO SCH (14:27)
[2018-08-24] MEDS: Furosemide 40 MG Tablet PO SCH (14:27)
[2018-08-24] MEDS: Lisinopril 20 MG Tablet PO SCH (14:31)
--- NOTE | 2018-08-24 16:16 | P.PNNS ---
Subjective Interval history: Pt is awake and alert. She complains of some neck discomfort. No radiculopathy in UEs. Paresthesias and numbness in hands stable. Pt states she is very weak in LEs with getting up. Physical Exam Vital signs: Vital Signs 08/23/18 20:00 08/24/18 00:00 08/24/18 04:00 Temperature 98.1 F 98.8 F 98.0 F Pulse Rate 75 72 65 Respiratory Rate 20 14 15 Blood Pressure 184/96 H 180/77 H 139/74 Pulse Oximetry 94 L 91 L 94 L 08/24/18 08:00 08/24/18 10:42 08/24/18 12:00 Temperature 98.7 F 99.4 F Pulse Rate 73 74 Respiratory Rate 20 14 20 Blood Pressure 191/85 H 177/99 H Pulse Oximetry 94 L 95 08/24/18 14:00 08/24/18 15:43 Temperature 98.7 F Pulse Rate 66 Respiratory Rate 20 Blood Pressure 130/76 139/63 Pulse Oximetry 95 Intake & Output 08/23/18 08/24/18 08/24/18 18:59 06:59 18:59 Intake Total 240 / 240 360 / 360 Output Total 1000 / 1000 Balance 240 / 240 -1000 / -1000 360 / 360 Weight 61.7 kg Intake: Oral 240 / 240 360 / 360 Output: Urine Amount (Catheter) 1000 / 1000 Female External 1000 / 1000 Other: Date of Last Bowel Movement 08/21/18 08/22/18 - Constitutional no acute distress - Routine HEENT Exam Head: Present: atraumatic Eye: Present: PERRL - Routine Neck Exam Absent: full ROM ([place] J cervical collar in place.) - Routine Respiratory Exam Present: CTA bilaterally. Absent: respiratory distress, rhonchi, wheezes - Routine Cardiovascular Exam Present: RRR, S1, S2. Absent: murmur - Routine Abdominal Exam Present: soft, normoactive bowel sounds. Absent: tenderness, distended, firm - Routine Skin Exam Absent: cyanosis, erythema - Routine Neurological Exam Present: alert, sensory deficit (Numbness in hands.), motor deficit ( Generalized weakness in LEs. HI weakness bilaterally.), moving all extremities , normal speech. Absent: altered mental status - Routine Psychiatric Exam Present: normal affect. Absent: anxious, agitated - Urinary Catheter Management Indwelling Urethral Catheter Cath placed during this visit: yes, but has since been removed by the nurse Reason for continuing: Not indwelling catheter Insertion date: 08/17/18 Removal date: 08/18/18 Removal time: 18:15 Female External Cath placed during this visit: no Reason for continuing: Not indwelling catheter Assessment and Plan - Assessment (1) Cervical spinal cord injury Code(s): S14.109A - Unspecified injury at unspecified level of cervical spinal cord, initial encounter Status: Acute (2) Stenosis of cervical spine with myelopathy Code(s): M47.12 - Other spondylosis with myelopathy, cervical region Status: Chronic (3) Chronic incomplete quadriplegia Code(s): G82.50 - Quadriplegia, unspecified Status: Acute (4) 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 PT- mobilize w/ collar - OT Anticipate rehab given significant preop weakness
[2018-08-24] MEDS: Montelukast 10 MG Tablet PO SCH (17:00)
[2018-08-24] MEDS: Temazepam 15 MG Capsule PO PRN (21:54)
[2018-08-25] MEDS: Insulin NovoLOG Aspart Correctional Sugar Inj SQ SCH ×4 (03:35→17:49)
[2018-08-25] MEDS: Sod Chloride 0.9% Inj 1,000 ML IV.CONT SCH ×2 (03:36→21:27)
[2018-08-25] MEDS: Levothyroxine 88 MCG Tablet PO SCH (05:05)
[2018-08-25 08:28] LABS: Baso # (Auto) 0.1 th/mm3 (0.0-0.2); Baso % (Auto) 0.7 % (0.0-2.0); Eos # (Auto) 0.2 th/mm3 (0.0-0.4); Eos % (Auto) 1.8 % (0.0-4.0); Hematocrit 46.1 % (35.0-46.0); Hemoglobin 15.7 gm/dL (11.6-15.3); Lymph # (Auto) 1.7 th/mm3 (1.0-4.8); Lymph % (Auto) 19.6 % (9.0-44.0); Mean Corpuscular HGB Conc 34.1 % (32.0-36.0); Mean Corpuscular Hemoglobin 32.7 pg (27.0-34.0); Mean Corpuscular Volume 95.8 fL (80.0-100.0); Mean Platelet Volume 9.2 fL (7.0-11.0); Mono # (Auto) 0.7 th/mm3 (0.0-0.9); Mono % (Auto) 7.9 % (0.0-8.0); Neut # (Auto) 6.2 th/mm3 (1.8-7.7); Platelet Count 311 th/mm3 (150-450); Red Blood Count 4.81 mil/mm3 (4.00-5.30); Red Cell Distribution Width 13.3 % (11.6-17.2); White Blood Count 8.9 th/mm3 (4.0-11.0)
[2018-08-25 08:58] LABS: Albumin 3.1 g/dL (3.4-5.0); Anion Gap 9 meq/L (5-15); Aspartate Aminotransferase 23 U/L (15-37); Blood Urea Nitrogen 24 mg/dL (7-18); Calcium 11.1 mg/dL (8.5-10.1); Chloride 97 meq/L (98-107); Glomerular Filtration Rate 60 mL/min (>89); Glucose,Random 138 mg/dL (74-106); Potassium 3.8 meq/L (3.5-5.1); Sodium 139 meq/L (136-145)
[2018-08-25 08:59] LABS: Alanine Aminotransferase 29 U/L (10-53)
[2018-08-25 09:01] LABS: Alkaline Phosphatase 112 U/L (45-117); Total Protein 8.2 g/dL (6.4-8.2)
[2018-08-25] MEDS: Enoxaparin Inj 40 MG/0.4 ML Syringe SQ SCH (09:19)
[2018-08-25] MEDS: Insulin Detemir Inj 1,000 UNIT/10 ML Vial SQ SCH ×2 (09:20→21:38)
[2018-08-25] MEDS: Senna/Docusate Sodium 8.6/50 MG Tablet PO SCH ×2 (09:21→21:44)
[2018-08-25] MEDS: amLODIPine 10 MG Tablet PO SCH (09:21)
[2018-08-25] MEDS: hydroCHLOROthiazide 25 MG Tablet PO SCH (09:23)
[2018-08-25] MEDS: Lisinopril 20 MG Tablet PO SCH (09:25)
[2018-08-25] MEDS: Metoprolol Tartrate 25 MG Tablet PO SCH ×2 (09:26→21:33)
[2018-08-25] MEDS: Furosemide 40 MG Tablet PO SCH (09:26)
[2018-08-25] MEDS: Tiotropium Bromide 18 MCG/ACT Inhaler INH SCH (09:28)
[2018-08-25] MEDS: Famotidine PF Inj 20 MG/2 ML Vial IV.PUSH SCH ×2 (11:45→21:45)
[2018-08-25] MEDS: Budesonide-Formoterol 160/4.5 MCG 6 GM Inhaler INH SCH ×2 (11:45→21:45)
--- NOTE | 2018-08-25 13:49 | P.PNIM ---
Subjective Interval history: Patient reports her pain is not controlled. She reports she normally takes 2 Percocets at home for pain. Physical Exam Vital signs: Vital Signs 08/24/18 14:00 08/24/18 15:43 08/24/18 16:00 Temperature 98.7 F Pulse Rate 66 Respiratory Rate 20 20 Blood Pressure 130/76 139/63 Pulse Oximetry 95 08/24/18 20:00 08/25/18 00:00 08/25/18 01:15 Temperature 98.0 F 98.2 F Pulse Rate 82 81 Respiratory Rate 18 16 16 Blood Pressure 165/75 H 160/88 H Pulse Oximetry 93 L 92 L 08/25/18 03:07 08/25/18 04:00 08/25/18 08:00 Temperature 98.4 F 98.0 F Pulse Rate 70 76 Respiratory Rate 16 18 20 Blood Pressure 156/81 H 167/76 H Pulse Oximetry 92 L 93 L Intake & Output 08/24/18 08/25/18 08/25/18 18:59 06:59 18:59 Intake Total 360 / 360 Output Total 900 / 900 Balance 360 / 360 -900 / -900 Weight 132 kg Intake: Oral 360 / 360 Output: Urine 900 / 900 Other: # Bowel Movements 2 Narrative: GENERAL: Obese female sitting up in the chair, appears uncomfortable. NECK: Collar in place. CARDIOVASCULAR: Regular rate and rhythm without murmurs, gallops, or rubs. RESPIRATORY: Breath sounds equal bilaterally. No accessory muscle use. GASTROINTESTINAL: Abdomen soft, non-tender, nondistended. MUSCULOSKELETAL: No cyanosis, or edema. Left knee brace. NEURO: Bilateral LE motor strength 4/5, Bilateral UE 5/5. - Urinary Catheter Management Indwelling Urethral Catheter Cath placed during this visit: yes, but has since been removed by the nurse Reason for continuing: Not indwelling catheter Insertion date: 08/17/18 Removal date: 08/18/18 Removal time: 18:15 Female External Cath placed during this visit: no Reason for continuing: Not indwelling catheter Results - Labs CBC & Chem 7: 08/25/18 07:37 08/25/18 07:37 Laboratory Results - last 24 hr 08/24/18 08/25/18 08/25/18 21:48 02:37 05:08 WBC RBC Hgb Hct MCV MCH MCHC RDW Plt Count MPV Neut % (Auto) Lymph % (Auto) [place] % (Auto) Eos % (Auto) Baso % (Auto) Neut # (Auto) Lymph # (Auto) [place] # (Auto) Eos # (Auto) Baso # (Auto) WBC Differential Differential Comment Sodium Potassium Chloride Carbon Dioxide Anion Gap BUN Creatinine Estimated GFR POC Glucose 146 H 125 H 138 H Random Glucose Calcium Total Bilirubin AST ALT Alkaline Phosphatase Total Protein Albumin 08/25/18 08/25/18 08/25/18 07:37 07:37 11:24 WBC 8.9 RBC 4.81 Hgb 15.7 H Hct 46.1 H MCV 95.8 MCH 32.7 MCHC 34.1 RDW 13.3 Plt Count 311 MPV 9.2 Neut % (Auto) 70.0 Lymph % (Auto) 19.6 [place] % (Auto) 7.9 Eos % (Auto) 1.8 Baso % (Auto) 0.7 Neut # (Auto) 6.2 Lymph # (Auto) 1.7 [place] # (Auto) 0.7 Eos # (Auto) 0.2 Baso # (Auto) 0.1 WBC Differential . Differential Comment Auto diff final Sodium 139 Potassium 3.8 Chloride 97 L Carbon Dioxide 33.0 H Anion Gap 9 BUN 24 H Creatinine 0.96 Estimated GFR 60 L POC Glucose 209 H Random Glucose 138 H Calcium 11.1 H D Total Bilirubin 0.7 AST 23 ALT 29 Alkaline Phosphatase 112 Total Protein 8.2 Albumin 3.1 L Assessment and Plan - Assessment (1) Diabetes Code(s): E11.9 - Type 2 diabetes mellitus without complications Status: Chronic (2) HTN (hypertension) Code(s): I10 - Essential (primary) hypertension Status: Chronic (3) Depression Code(s): F32.9 - Major depressive disorder, single episode, unspecified Status : Chronic (4) Cervical spinal cord injury Code(s): S14.109A - Unspecified injury at unspecified level of cervical spinal cord, initial encounter Status: Acute (5) Stenosis of cervical spine with myelopathy Code(s): M47.12 - Other spondylosis with myelopathy, cervical region Status: Chronic - Plan 58-year-old CF with a PMHx DM and spinal stenosis who presented with acute onset of bilateral arm and leg weakness for the past 4 days. Per MRI of the C- spine had an extruded disc fragment at C3-C4 eccentric to the right causing severe spinal canal stenosis with associated cord edema. Patient is s/p anterior cervical C3-4 interbody fusion, C3 and C4 partial corpectomies, anterior C3-4 cervical plate placement, C3-4 interbody cage placement, and microsurgical technique on 08/[address] Kam 1. Postop Care s/p Anterior cervical C3-4 interbody fusion; C3 and C4 partial corpectomies; anterior C3-4 cervical plate placement; C3-4 interbody cage placement; microsurgical technique on 08/[address] Kam -Further management per neurosurgery, appreciate assistance -Cont. PT, Zanaflex, and Morphine/Percocet PRN. Pain not well controlled. Increase Percocet to 2 tablets as needed. -Pending rehab placement. ? [facility] 2. Urinary Incontinence -Due to above (cervical myelopathy) -Wise in place 3. COPD -DuoNeb scheduled and as needed -On home O2 at home at night only, will attempt to wean day time O2 -Cont. Symbicort, Singulair, and Spiriva 4. Depression/Anxiety -Cont. Cymbalta and Paroxetine -Cont. Vistaril PRN (patient was previously on benzos but her PCP would no longer prescribe them, advised we will try Vistaril as it is nonaddicting and patient is already on chronic narcotics at baseline). 5. Hypothyroidism -Cont. Levothyroxine 6. Hyperlipidemia -Cont. Pravastatin 7. Diabetes Mellitus, Type II -BS stable -Cont. Levemir 10U BID (at home on and Pioglitazone) -Cont. Insulin sliding scale while IP 8. Hypertension -Not well controlled, cont. Metoprolol and Norvasc (started here), and increasing Lisinopril to 20mg/12.5mg HCTZ, resumed home Lasix today as well -Cont. Clonidine PRN ( is on BID scheduled at home) resume if needed 9. Leukocytosis, resolved Neg U/A on admission Neg CXR Neg Urine Cx 10. DVT/GI prophylaxis -Teds SCDs -Lovenox -Pepcid 12. Dispo: Need rehab placement.
[2018-08-25] MEDS: Montelukast 10 MG Tablet PO SCH (21:26)
[2018-08-25] MEDS: Temazepam 15 MG Capsule PO PRN (21:33)
[2018-08-26] MEDS: Sod Chloride 0.9% Inj 1,000 ML IV.CONT SCH ×3 (06:11→18:00)
[2018-08-26] MEDS: Insulin NovoLOG Aspart Correctional Sugar Inj SQ SCH ×4 (06:12→21:15)
[2018-08-26] MEDS: Levothyroxine 88 MCG Tablet PO SCH (06:17)
[2018-08-26 08:15] LABS: Calcium 11.3 mg/dL (8.5-10.1); Carbon Dioxide 32.9 meq/L (21.0-32.0)
[2018-08-26 08:25] LABS: Potassium 4.5 meq/L (3.5-5.1)
[2018-08-26] MEDS: Lisinopril 20 MG Tablet PO SCH (08:47)
[2018-08-26] MEDS: Metoprolol Tartrate 25 MG Tablet PO SCH ×2 (08:47→20:48)
[2018-08-26] MEDS: amLODIPine 10 MG Tablet PO SCH (08:47)
[2018-08-26] MEDS: Enoxaparin Inj 40 MG/0.4 ML Syringe SQ SCH (08:48)
[2018-08-26] MEDS: hydroCHLOROthiazide 25 MG Tablet PO SCH (08:48)
[2018-08-26] MEDS: Furosemide 40 MG Tablet PO SCH (08:48)
[2018-08-26] MEDS: Insulin Detemir Inj 1,000 UNIT/10 ML Vial SQ SCH ×2 (08:52→21:16)
[2018-08-26] MEDS: Tiotropium Bromide 18 MCG/ACT Inhaler INH SCH (09:00)
[2018-08-26] MEDS: Senna/Docusate Sodium 8.6/50 MG Tablet PO SCH ×2 (09:00→21:17)
[2018-08-26] MEDS: Famotidine PF Inj 20 MG/2 ML Vial IV.PUSH SCH ×2 (09:00→21:17)
[2018-08-26] MEDS: Budesonide-Formoterol 160/4.5 MCG 6 GM Inhaler INH SCH ×2 (09:00→21:17)
--- NOTE | 2018-08-26 13:15 | P.PNNS ---
Subjective Interval history: Pt awake and alert. Sitting up in chair. Ambulating short distance. States numbness in hands is feeling better. Complains of mild neck pain. No radiculopathy in UEs. Physical Exam Vital signs: Vital Signs 08/25/18 16:00 08/25/18 20:00 08/26/18 00:00 Temperature 98.2 F 98.1 F 97.7 F Pulse Rate 85 82 60 Respiratory Rate 20 18 18 Blood Pressure 146/77 H 129/64 125/69 Pulse Oximetry 98 92 L 90 L 08/26/18 04:00 08/26/18 08:00 Temperature 97.9 F 98.1 F Pulse Rate 61 67 Respiratory Rate 18 18 Blood Pressure 163/74 H 129/72 Pulse Oximetry 92 L 97 Intake & Output 08/25/18 08/26/18 08/26/18 18:59 06:59 18:59 Intake Total 360 / 360 120 / 120 Output Total 350 / 350 Balance 360 / 360 -230 / -230 Weight 133.1 kg Intake: Oral 360 / 360 120 / 120 Output: Urine 350 / 350 Other: # Voids 3 Date of Last Bowel Movement 08/22/18 08/22/18 08/26/18 # Bowel Movements 1 1 - Constitutional no acute distress - Routine HEENT Exam Head: Present: normocephalic, atraumatic Eye: Present: PERRL - Routine Respiratory Exam Present: CTA bilaterally. Absent: respiratory distress, rhonchi, wheezes - Routine Cardiovascular Exam Present: RRR, S1, S2. Absent: murmur - Routine Abdominal Exam Present: soft, normoactive bowel sounds. Absent: distended, firm - Routine Skin Exam Absent: cyanosis, erythema Comments: Incision bandage dry. - Routine Neurological Exam Present: alert, motor deficit (HI weakness improving.), moving all extremities ( Ambulating short distance.) - Routine Psychiatric Exam Present: normal affect, cooperative. Absent: depressed, anxious - Urinary Catheter Management Indwelling Urethral Catheter Cath placed during this visit: yes, but has since been removed by the nurse Reason for continuing: Not indwelling catheter Insertion date: 08/17/18 Removal date: 08/18/18 Removal time: 18:15 Female External Cath placed during this visit: no Reason for continuing: Not indwelling catheter Assessment and Plan - Assessment (1) Cervical spinal cord injury Code(s): S14.109A - Unspecified injury at unspecified level of cervical spinal cord, initial encounter Status: Acute (2) Stenosis of cervical spine with myelopathy Code(s): M47.12 - Other spondylosis with myelopathy, cervical region Status: Chronic (3) Chronic incomplete quadriplegia Code(s): G82.50 - Quadriplegia, unspecified Status: Acute (4) 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 PT- mobilize w/ collar - OT Anticipate rehab given significant preop weakness. Pt wants to go home if Rehab not available. She is ambulating only short distance.
--- NOTE | 2018-08-26 17:39 | P.PNIM ---
Subjective Interval history: Patient reports that her pain is better controlled today. Still has significant difficulty with ambulating with PT. Physical Exam Vital signs: Vital Signs 08/25/18 20:00 08/26/18 00:00 08/26/18 04:00 Temperature 98.1 F 97.7 F 97.9 F Pulse Rate 82 60 61 Respiratory Rate 18 18 18 Blood Pressure 129/64 125/69 163/74 H Pulse Oximetry 92 L 90 L 92 L 08/26/18 08:00 08/26/18 12:00 Temperature 98.1 F 98.4 F Pulse Rate 67 88 Respiratory Rate 16 16 Blood Pressure 129/72 121/74 Pulse Oximetry 97 95 Intake & Output 08/25/18 08/26/18 08/26/18 18:59 06:59 18:59 Intake Total 360 / 360 120 / 120 Output Total 350 / 350 Balance 360 / 360 -230 / -230 Weight 133.1 kg Intake: Oral 360 / 360 120 / 120 Output: Urine 350 / 350 Other: # Voids 3 Date of Last Bowel Movement 08/22/18 08/22/18 08/26/18 # Bowel Movements 1 1 Narrative: GENERAL: Obese female sitting up in the chair. NECK: Collar in place. CARDIOVASCULAR: Regular rate and rhythm without murmurs, gallops, or rubs. RESPIRATORY: Breath sounds equal bilaterally. No accessory muscle use. GASTROINTESTINAL: Abdomen soft, non-tender, nondistended. MUSCULOSKELETAL: No cyanosis, or edema. Left knee brace. NEURO: Bilateral LE motor strength 4/5, Bilateral UE 5/5. - Urinary Catheter Management Indwelling Urethral Catheter Cath placed during this visit: yes, but has since been removed by the nurse Reason for continuing: Not indwelling catheter Insertion date: 08/17/18 Removal date: 08/18/18 Removal time: 18:15 Female External Cath placed during this visit: no Reason for continuing: Not indwelling catheter Results - Labs CBC & Chem 7: 08/25/18 07:37 08/26/18 07:07 Laboratory Results - last 24 hr 08/25/18 08/25/18 08/26/18 17:45 23:41 06:18 Sodium Potassium Chloride Carbon Dioxide Anion Gap BUN Creatinine Estimated GFR POC Glucose 117 H 122 H 136 H Random Glucose Calcium 08/26/18 08/26/18 07:07 12:16 Sodium 137 Potassium 4.5 Chloride 97 L Carbon Dioxide 32.9 H Anion Gap 7 BUN 37 H Creatinine 1.26 H Estimated GFR 44 L POC Glucose 154 H Random Glucose 128 H Calcium 11.3 H Assessment and Plan - Assessment (1) Diabetes Code(s): E11.9 - Type 2 diabetes mellitus without complications Status: Chronic (2) HTN (hypertension) Code(s): I10 - Essential (primary) hypertension Status: Chronic (3) Depression Code(s): F32.9 - Major depressive disorder, single episode, unspecified Status : Chronic (4) Cervical spinal cord injury Code(s): S14.109A - Unspecified injury at unspecified level of cervical spinal cord, initial encounter Status: Acute (5) Stenosis of cervical spine with myelopathy Code(s): M47.12 - Other spondylosis with myelopathy, cervical region Status: Chronic - Plan 58-year-old CF with a PMHx DM and spinal stenosis who presented with acute onset of bilateral arm and leg weakness for the past 4 days. Per MRI of the C- spine had an extruded disc fragment at C3-C4 eccentric to the right causing severe spinal canal stenosis with associated cord edema. Patient is s/p anterior cervical C3-4 interbody fusion, C3 and C4 partial corpectomies, anterior C3-4 cervical plate placement, C3-4 interbody cage placement, and microsurgical technique on 08/[address] Kam 1. Postop Care s/p Anterior cervical C3-4 interbody fusion; C3 and C4 partial corpectomies; anterior C3-4 cervical plate placement; C3-4 interbody cage placement; microsurgical technique on 08/[address] Kam -Further management per neurosurgery, appreciate assistance -Cont. PT, Zanaflex, and Morphine/Percocet PRN. Pain better controlled with increased dose of Percocet -Pending rehab placement. ? [facility] 2. Urinary Incontinence -Due to above (cervical myelopathy) -Wise in place 3. COPD -DuoNeb scheduled and as needed -On home O2 at home at night only, will attempt to wean day time O2 -Cont. Symbicort, Singulair, and Spiriva 4. Depression/Anxiety -Cont. Cymbalta and Paroxetine -Cont. Vistaril PRN (patient was previously on benzos but her PCP would no longer prescribe them, advised we will try Vistaril as it is nonaddicting and patient is already on chronic narcotics at baseline). 5. Hypothyroidism -Cont. Levothyroxine 6. Hyperlipidemia -Cont. Pravastatin 7. Diabetes Mellitus, Type II -BS stable -Cont. Levemir 10U BID (at home on Novument and Pioglitazone) -Cont. Insulin sliding scale while IP 8. Hypertension -Not well controlled, cont. Metoprolol and Norvasc (started here), and increasing Lisinopril to 20mg/12.5mg HCTZ, resumed home Lasix today as well -Cont. Clonidine PRN ( is on BID scheduled at home) resume if needed 9. Leukocytosis, resolved Neg U/A on admission Neg CXR Neg Urine Cx 10. DVT/GI prophylaxis -Teds SCDs -Lovenox -Pepcid 12. Dispo: Need rehab placement.
[2018-08-26] MEDS: Montelukast 10 MG Tablet PO SCH (20:48)
[2018-08-26] MEDS: Temazepam 15 MG Capsule PO PRN (20:49)
[2018-08-27] MEDS: Insulin NovoLOG Aspart Correctional Sugar Inj SQ SCH ×4 (00:15→17:37)
[2018-08-27] MEDS: Levothyroxine 88 MCG Tablet PO SCH (06:37)
[2018-08-27] MEDS: Sod Chloride 0.9% Inj 1,000 ML IV.CONT SCH ×2 (07:37→13:03)
[2018-08-27] MEDS: amLODIPine 10 MG Tablet PO SCH (08:35)
[2018-08-27] MEDS: Metoprolol Tartrate 25 MG Tablet PO SCH ×2 (08:35→20:42)
[2018-08-27] MEDS: Lisinopril 20 MG Tablet PO SCH (08:35)
[2018-08-27] MEDS: hydroCHLOROthiazide 25 MG Tablet PO SCH (08:36)
[2018-08-27] MEDS: Insulin Detemir Inj 1,000 UNIT/10 ML Vial SQ SCH ×2 (08:36→22:51)
[2018-08-27] MEDS: Furosemide 40 MG Tablet PO SCH (08:36)
[2018-08-27] MEDS: Famotidine PF Inj 20 MG/2 ML Vial IV.PUSH SCH ×2 (08:37→20:46)
[2018-08-27] MEDS: Senna/Docusate Sodium 8.6/50 MG Tablet PO SCH ×2 (08:37→20:41)
[2018-08-27] MEDS: Enoxaparin Inj 40 MG/0.4 ML Syringe SQ SCH (08:37)
[2018-08-27] MEDS: Budesonide-Formoterol 160/4.5 MCG 6 GM Inhaler INH SCH ×2 (08:38→20:48)
[2018-08-27] MEDS: Tiotropium Bromide 18 MCG/ACT Inhaler INH SCH (08:38)
--- NOTE | 2018-08-27 14:47 | P.PNIM ---
Subjective Interval history: Patient reports she is feeling okay today. Participating with physical therapy. Physical Exam Vital signs: Vital Signs 08/26/18 16:00 08/26/18 17:46 08/26/18 20:00 Temperature 98.6 F 98.1 F Pulse Rate 62 64 Respiratory Rate 12 17 Blood Pressure 131/62 111/72 Pulse Oximetry 98 95 94 L 08/27/18 00:00 08/27/18 04:00 08/27/18 08:00 Temperature 97.7 F 97.7 F Pulse Rate 55 L 68 Respiratory Rate 18 16 18 Blood Pressure 144/73 H 148/78 H Pulse Oximetry 93 L 93 L 08/27/18 10:01 08/27/18 12:00 08/27/18 14:06 Temperature 98.0 F Pulse Rate 98 H Respiratory Rate 16 16 Blood Pressure 88/52 L 108/69 Pulse Oximetry 92 L Intake & Output 08/26/18 08/27/18 08/27/18 18:59 06:59 18:59 Other: Date of Last Bowel Movement 08/26/18 08/26/18 08/26/18 # Bowel Movements 1 Narrative: GENERAL: Obese female sitting up in the chair. NECK: Collar in place. CARDIOVASCULAR: Regular rate and rhythm without murmurs, gallops, or rubs. RESPIRATORY: Breath sounds equal bilaterally. No accessory muscle use. GASTROINTESTINAL: Abdomen soft, non-tender, nondistended. MUSCULOSKELETAL: No cyanosis, or edema. Left knee brace. NEURO: Bilateral LE motor strength 4/5, Bilateral UE 5/5. - Urinary Catheter Management Indwelling Urethral Catheter Cath placed during this visit: yes, but has since been removed by the nurse Reason for continuing: Not indwelling catheter Insertion date: 08/17/18 Removal date: 08/18/18 Removal time: 18:15 Female External Cath placed during this visit: no Reason for continuing: Not indwelling catheter Results - Labs CBC & Chem 7: 08/25/18 07:37 08/26/18 07:07 Laboratory Results - last 24 hr 08/26/18 08/26/18 08/27/18 17:44 20:52 00:13 POC Glucose 116 H 201 H 121 H 08/27/18 08/27/18 06:40 11:37 POC Glucose 133 H 208 H Assessment and Plan - Assessment (1) Diabetes Code(s): E11.9 - Type 2 diabetes mellitus without complications Status: Chronic (2) HTN (hypertension) Code(s): I10 - Essential (primary) hypertension Status: Chronic (3) Depression Code(s): F32.9 - Major depressive disorder, single episode, unspecified Status : Chronic (4) Cervical spinal cord injury Code(s): S14.109A - Unspecified injury at unspecified level of cervical spinal cord, initial encounter Status: Acute (5) Stenosis of cervical spine with myelopathy Code(s): M47.12 - Other spondylosis with myelopathy, cervical region Status: Chronic - Plan 58-year-old CF with a PMHx DM and spinal stenosis who presented with acute onset of bilateral arm and leg weakness for the past 4 days. Per MRI of the C- spine had an extruded disc fragment at C3-C4 eccentric to the right causing severe spinal canal stenosis with associated cord edema. Patient is s/p anterior cervical C3-4 interbody fusion, C3 and C4 partial corpectomies, anterior C3-4 cervical plate placement, C3-4 interbody cage placement, and microsurgical technique on 08/[address] Kam 1. Postop Care s/p Anterior cervical C3-4 interbody fusion; C3 and C4 partial corpectomies; anterior C3-4 cervical plate placement; C3-4 interbody cage placement; microsurgical technique on 08/[address] Kam -Further management per neurosurgery, appreciate assistance -Cont. PT, Zanaflex, and Morphine/Percocet PRN. Pain better controlled with increased dose of Percocet -Pending rehab placement. ? [facility] bed. 2. Urinary Incontinence -Due to above (cervical myelopathy) -Wise in place 3. COPD -DuoNeb scheduled and as needed -On home O2 at home at night only, will attempt to wean day time O2 -Cont. Symbicort, Singulair, and Spiriva 4. Depression/Anxiety -Cont. Cymbalta and Paroxetine -Cont. Vistaril PRN (patient was previously on benzos but her PCP would no longer prescribe them, advised we will try Vistaril as it is nonaddicting and patient is already on chronic narcotics at baseline). 5. Hypothyroidism -Cont. Levothyroxine 6. Hyperlipidemia -Cont. Pravastatin 7. Diabetes Mellitus, Type II -BS stable -Cont. Levemir 10U BID (at home on Janument and Pioglitazone) -Cont. Insulin sliding scale while IP 8. Hypertension -Not well controlled, cont. Metoprolol and Norvasc (started here), and increasing Lisinopril to 20mg/12.5mg HCTZ, resumed home Lasix today as well -Cont. Clonidine PRN ( is on BID scheduled at home) resume if needed 9. Leukocytosis, resolved Neg U/A on admission Neg CXR Neg Urine Cx 10. DVT/GI prophylaxis -Teds SCDs -Lovenox -Pepcid 12. Dispo: Need rehab placement.
[2018-08-27] MEDS: Montelukast 10 MG Tablet PO SCH (17:37)
[2018-08-27] MEDS: Temazepam 15 MG Capsule PO PRN (22:44)
[2018-08-28] MEDS: Sod Chloride 0.9% Inj 1,000 ML IV.CONT SCH ×3 (00:42→19:38)
[2018-08-28] MEDS: Insulin NovoLOG Aspart Correctional Sugar Inj SQ SCH ×4 (00:42→17:48)
[2018-08-28] MEDS: Levothyroxine 88 MCG Tablet PO SCH (05:50)
[2018-08-28] MEDS: hydroCHLOROthiazide 25 MG Tablet PO SCH (08:37)
[2018-08-28] MEDS: Furosemide 40 MG Tablet PO SCH (08:37)
[2018-08-28] MEDS: Lisinopril 20 MG Tablet PO SCH (08:38)
[2018-08-28] MEDS: Enoxaparin Inj 40 MG/0.4 ML Syringe SQ SCH (08:38)
[2018-08-28] MEDS: Metoprolol Tartrate 25 MG Tablet PO SCH ×2 (08:38→21:24)
[2018-08-28] MEDS: amLODIPine 10 MG Tablet PO SCH (08:38)
[2018-08-28] MEDS: Insulin Detemir Inj 1,000 UNIT/10 ML Vial SQ SCH ×2 (08:38→21:23)
[2018-08-28] MEDS: Famotidine PF Inj 20 MG/2 ML Vial IV.PUSH SCH ×2 (08:39→21:25)
[2018-08-28] MEDS: Tiotropium Bromide 18 MCG/ACT Inhaler INH SCH (08:39)
[2018-08-28] MEDS: Senna/Docusate Sodium 8.6/50 MG Tablet PO SCH ×2 (08:39→21:25)
[2018-08-28] MEDS: Budesonide-Formoterol 160/4.5 MCG 6 GM Inhaler INH SCH ×2 (08:39→21:26)
--- NOTE | 2018-08-28 12:59 | P.PNIM ---
Subjective Interval history: Patient reports she is feeling tired today. No other issues. Pain is controlled. Physical Exam Vital signs: Vital Signs 08/27/18 14:06 08/27/18 16:00 08/27/18 18:03 Temperature 98.1 F Pulse Rate 75 Respiratory Rate 14 16 Blood Pressure 108/69 147/67 H Pulse Oximetry 95 08/27/18 20:00 08/28/18 00:00 08/28/18 04:00 Temperature 98.0 F 97.8 F 97.6 F Pulse Rate 77 66 67 Respiratory Rate 18 17 18 Blood Pressure 139/71 115/65 140/82 Pulse Oximetry 94 L 97 95 08/28/18 08:00 08/28/18 11:24 Temperature 97.8 F Pulse Rate 70 Respiratory Rate 20 16 Blood Pressure 186/79 H Pulse Oximetry 95 Intake & Output 08/27/18 08/28/18 08/28/18 18:59 06:59 18:59 Output Total 700 / 700 600 / 600 Balance -700 / -700 -600 / -600 Weight 131.4 kg Output: Urine 700 / 700 600 / 600 Other: Date of Last Bowel Movement 08/26/18 08/26/18 Narrative: GENERAL: Obese female sitting up in the chair. NECK: Collar in place. CARDIOVASCULAR: Regular rate and rhythm without murmurs, gallops, or rubs. RESPIRATORY: Breath sounds equal bilaterally. No accessory muscle use. GASTROINTESTINAL: Abdomen soft, non-tender, nondistended. MUSCULOSKELETAL: No cyanosis, or edema. Left knee brace. NEURO: Bilateral LE motor strength 4/5, Bilateral UE 5/5. - Urinary Catheter Management Indwelling Urethral Catheter Cath placed during this visit: yes, but has since been removed by the nurse Reason for continuing: Not indwelling catheter Insertion date: 08/17/18 Removal date: 08/18/18 Removal time: 18:15 Female External Cath placed during this visit: no Reason for continuing: Not indwelling catheter Results - Labs CBC & Chem 7: 08/25/18 07:37 08/26/18 07:07 Laboratory Results - last 24 hr 08/27/18 08/27/18 08/28/18 17:36 22:43 00:39 POC Glucose 124 H 153 H 159 H 10/28/18 10/28/18 10/28/18 05:51 07:13 12:25 POC Glucose 143 H 140 H 134 H Assessment and Plan - Assessment (1) Diabetes Code(s): E11.9 - Type 2 diabetes mellitus without complications Status: Chronic (2) HTN (hypertension) Code(s): I10 - Essential (primary) hypertension Status: Chronic (3) Depression Code(s): F32.9 - Major depressive disorder, single episode, unspecified Status : Chronic (4) Cervical spinal cord injury Code(s): S14.109A - Unspecified injury at unspecified level of cervical spinal cord, initial encounter Status: Acute (5) Stenosis of cervical spine with myelopathy Code(s): M47.12 - Other spondylosis with myelopathy, cervical region Status: Chronic - Plan 58-year-old CF with a PMHx DM and spinal stenosis who presented with acute onset of bilateral arm and leg weakness for the past 4 days. Per MRI of the C- spine had an extruded disc fragment at C3-C4 eccentric to the right causing severe spinal canal stenosis with associated cord edema. Patient is s/p anterior cervical C3-4 interbody fusion, C3 and C4 partial corpectomies, anterior C3-4 cervical plate placement, C3-4 interbody cage placement, and microsurgical technique on 08/[address] Kam 1. Postop Care s/p Anterior cervical C3-4 interbody fusion; C3 and C4 partial corpectomies; anterior C3-4 cervical plate placement; C3-4 interbody cage placement; microsurgical technique on 08/[address] Kam -Further management per neurosurgery, appreciate assistance -Cont. PT, Zanaflex, and Morphine/Percocet PRN. Pain better controlled with increased dose of Percocet -Pending rehab placement. ? [facility] bed. 2. Urinary Incontinence -Due to above (cervical myelopathy) -Wise in place - Consider voiding trial when she is more mobile. 3. COPD -DuoNeb scheduled and as needed -On home O2 at home at night only, wean day time O2 -Cont. Symbicort, Singulair, and Spiriva 4. Depression/Anxiety -Cont. Cymbalta and Paroxetine -Cont. Vistaril PRN (patient was previously on benzos but her PCP would no longer prescribe them, advised we will try Vistaril as it is nonaddicting and patient is already on chronic narcotics at baseline). 5. Hypothyroidism -Cont. Levothyroxine 6. Hyperlipidemia -Cont. Pravastatin 7. Diabetes Mellitus, Type II -BS stable -Cont. Levemir 10U BID (at home on Janumet and Pioglitazone) -Cont. Insulin sliding scale while IP 8. Hypertension -controlled, cont. Metoprolol and Norvasc (started here), and Lisinopril to 20mg /12.5mg HCTZ, home Lasix -Cont. Clonidine PRN ( is on BID scheduled at home) resume if needed 9. Leukocytosis, resolved Neg U/A on admission Neg CXR Neg Urine Cx 10. DVT/GI prophylaxis -Teds SCDs -Lovenox -Pepcid 12. Dispo: Need rehab placement. Discharge Planning: Need Placement.
[2018-08-28] MEDS: Montelukast 10 MG Tablet PO SCH (17:45)
[2018-08-28] MEDS: Temazepam 15 MG Capsule PO PRN (21:24)
[2018-08-29] MEDS: Insulin NovoLOG Aspart Correctional Sugar Inj SQ SCH ×4 (00:01→18:08)
[2018-08-29] MEDS: Levothyroxine 88 MCG Tablet PO SCH (05:40)
[2018-08-29] MEDS: Sod Chloride 0.9% Inj 1,000 ML IV.CONT SCH ×2 (05:41→19:52)
[2018-08-29] MEDS: Insulin Detemir Inj 1,000 UNIT/10 ML Vial SQ SCH ×2 (09:30→21:45)
[2018-08-29] MEDS: amLODIPine 10 MG Tablet PO SCH (09:30)
[2018-08-29] MEDS: Lisinopril 20 MG Tablet PO SCH (09:31)
[2018-08-29] MEDS: Enoxaparin Inj 40 MG/0.4 ML Syringe SQ SCH (09:31)
[2018-08-29] MEDS: Furosemide 40 MG Tablet PO SCH (09:31)
[2018-08-29] MEDS: Metoprolol Tartrate 25 MG Tablet PO SCH ×2 (09:32→22:39)
[2018-08-29] MEDS: hydroCHLOROthiazide 25 MG Tablet PO SCH (09:40)
[2018-08-29] MEDS: Tiotropium Bromide 18 MCG/ACT Inhaler INH SCH (09:42)
[2018-08-29] MEDS: Senna/Docusate Sodium 8.6/50 MG Tablet PO SCH ×2 (10:19→22:40)
[2018-08-29] MEDS: Famotidine PF Inj 20 MG/2 ML Vial IV.PUSH SCH ×2 (10:19→22:40)
[2018-08-29] MEDS: Budesonide-Formoterol 160/4.5 MCG 6 GM Inhaler INH SCH ×2 (10:21→22:40)
[2018-08-29] MEDS ORDERED: amLODIPine 10 MG Tablet PO SCH (16:40)
--- NOTE | 2018-08-29 16:41 | P.PNIM ---
Subjective Interval history: Patient reports she is feeling ok. Wager to go home but still weak. Physical Exam Vital signs: Vital Signs 08/28/18 18:14 08/28/18 20:00 08/29/18 00:00 Temperature 97.9 F 97.9 F Pulse Rate 84 74 Respiratory Rate 16 18 15 Blood Pressure 117/57 L 132/68 Pulse Oximetry 93 L 93 L 08/29/18 04:00 08/29/18 08:00 08/29/18 12:00 Temperature 97.6 F 97.9 F 98.1 F Pulse Rate 77 81 104 H Respiratory Rate 18 18 20 Blood Pressure 137/65 146/67 H 147/66 H Pulse Oximetry 94 L 93 L 93 L Intake & Output 08/28/18 08/29/18 08/29/18 18:59 06:59 18:59 Output Total 1000 / 1000 Balance -1000 / -1000 Weight 131.6 kg Output: Urine 1000 / 1000 Other: Date of Last Bowel Movement 08/26/18 08/22/18 Narrative: GENERAL: Obese female sitting up in the chair. NECK: Collar in place. CARDIOVASCULAR: Regular rate and rhythm without murmurs, gallops, or rubs. RESPIRATORY: Breath sounds equal bilaterally. No accessory muscle use. GASTROINTESTINAL: Abdomen soft, non-tender, nondistended. MUSCULOSKELETAL: No cyanosis, or edema. Left knee brace. NEURO: Bilateral LE motor strength 4/5, Bilateral UE 5/5. - Urinary Catheter Management Indwelling Urethral Catheter Cath placed during this visit: yes, but has since been removed by the nurse Reason for continuing: Not indwelling catheter Insertion date: 08/17/18 Removal date: 08/18/18 Removal time: 18:15 Female External Cath placed during this visit: no Reason for continuing: Not indwelling catheter Results - Labs CBC & Chem 7: 08/25/18 07:37 08/26/18 07:07 Laboratory Results - last 24 hr 08/28/18 08/28/18 08/28/18 17:46 19:59 23:49 POC Glucose 132 H 254 H 160 H 08/29/18 08/29/18 05:36 13:04 POC Glucose 140 H 199 H Assessment and Plan - Assessment (1) Diabetes Code(s): E11.9 - Type 2 diabetes mellitus without complications Status: Chronic (2) HTN (hypertension) Code(s): I10 - Essential (primary) hypertension Status: Chronic (3) Depression Code(s): F32.9 - Major depressive disorder, single episode, unspecified Status : Chronic (4) Cervical spinal cord injury Code(s): S14.109A - Unspecified injury at unspecified level of cervical spinal cord, initial encounter Status: Acute (5) Stenosis of cervical spine with myelopathy Code(s): M47.12 - Other spondylosis with myelopathy, cervical region Status: Chronic - Plan 58-year-old CF with a PMHx DM and spinal stenosis who presented with acute onset of bilateral arm and leg weakness for the past 4 days. Per MRI of the C- spine had an extruded disc fragment at C3-C4 eccentric to the right causing severe spinal canal stenosis with associated cord edema. Patient is s/p anterior cervical C3-4 interbody fusion, C3 and C4 partial corpectomies, anterior C3-4 cervical plate placement, C3-4 interbody cage placement, and microsurgical technique on 08/[address] Kam 1. Postop Care s/p Anterior cervical C3-4 interbody fusion; C3 and C4 partial corpectomies; anterior C3-4 cervical plate placement; C3-4 interbody cage placement; microsurgical technique on 08/[address] Kam -Further management per neurosurgery, appreciate assistance -Cont. PT, Zanaflex, and Morphine/Percocet PRN. Pain better controlled with increased dose of Percocet -Pending rehab placement. [place] awaiting for insurance authorization. 2. Urinary Incontinence -Due to above (cervical myelopathy) -Wise in place - Consider voiding trial when she is more mobile. 3. COPD -DuoNeb scheduled and as needed -On home O2 at home at night only, wean day time O2 -Cont. Symbicort, Singulair, and Spiriva 4. Depression/Anxiety -Cont. Cymbalta and Paroxetine -Cont. Vistaril PRN (patient was previously on benzos but her PCP would no longer prescribe them, advised we will try Vistaril as it is nonaddicting and patient is already on chronic narcotics at baseline). 5. Hypothyroidism -Cont. Levothyroxine 6. Hyperlipidemia -Cont. Pravastatin 7. Diabetes Mellitus, Type II -BS stable -Cont. Levemir 10U BID (at home on t and Pioglitazone) -Cont. Insulin sliding scale while IP 8. Hypertension -controlled, cont. Metoprolol and Norvasc (started here), and Lisinopril to 20mg /12.5mg HCTZ, home Lasix -Cont. Clonidine PRN ( is on BID scheduled at home) resume if needed 9. Leukocytosis, resolved Neg U/A on admission Neg CXR Neg Urine Cx 10. DVT/GI prophylaxis -Teds SCDs -Lovenox -Pepcid 12. Dispo: Need rehab placement. Discharge Planning: Need Placement. [place] waiting for auth.
[2018-08-29] MEDS: Montelukast 10 MG Tablet PO SCH (18:11)
[2018-08-29] MEDS: Temazepam 15 MG Capsule PO PRN (23:12)
[2018-08-30] MEDS: Insulin NovoLOG Aspart Correctional Sugar Inj SQ SCH ×3 (00:46→12:35)
[2018-08-30] MEDS: Sod Chloride 0.9% Inj 1,000 ML IV.CONT SCH ×2 (03:05→12:55)
[2018-08-30] MEDS: Levothyroxine 88 MCG Tablet PO SCH (06:08)
[2018-08-30] MEDS: Insulin Detemir Inj 1,000 UNIT/10 ML Vial SQ SCH (09:38)
[2018-08-30] MEDS: Furosemide 40 MG Tablet PO SCH (09:39)
[2018-08-30] MEDS: Lisinopril 20 MG Tablet PO SCH ×2 (09:39→09:51)
[2018-08-30] MEDS: Metoprolol Tartrate 25 MG Tablet PO SCH (09:39)
[2018-08-30] MEDS: Enoxaparin Inj 40 MG/0.4 ML Syringe SQ SCH (09:40)
[2018-08-30] MEDS: Senna/Docusate Sodium 8.6/50 MG Tablet PO SCH (09:51)
[2018-08-30] MEDS: Tiotropium Bromide 18 MCG/ACT Inhaler INH SCH (09:51)
[2018-08-30] MEDS: Budesonide-Formoterol 160/4.5 MCG 6 GM Inhaler INH SCH (09:51)
[2018-08-30] MEDS: Famotidine PF Inj 20 MG/2 ML Vial IV.PUSH SCH (09:52)
[2018-08-30 10:23] VITALS: BP 123/64; PULSE 94; RESP 16; TEMP 97.8; O2SAT 95
--- NOTE | 2018-08-30 11:05 | P.DS ---
Date of admission: 08/17/18 00:51 Primary care physician: UNKNOWN Brief History from admission: HPI as documented by the admitting physician: This is a 58-year-old CF with a PMHx DM and spinal stenosis who presented with acute onset of bilateral arm and leg weakness for the past 4 days. Per MRI of the C-spine had an extruded disc fragment at C3-C4 eccentric to the right causing severe spinal canal stenosis with associated cord edema. Patient is s/p anterior cervical C3-4 interbody fusion, C3 and C4 partial corpectomies, anterior C3-4 cervical plate placement, C3-4 interbody cage placement, and microsurgical technique on 08/[address] Kam, POD#2, we have been consulted for medical management. Patient reports that she is doing well with pain wel controlled. Patient is tolerating p.o., voiding with Wise. Patient has no current concerns. Patient update on day of discharge: Patient reports she is feeling okay today. Pain is well controlled. Authorization received for rehab placement today. DS: Diagnosis - Discharge Diagnosis (1) Diabetes Status: Chronic (2) HTN (hypertension) Status: Chronic (3) Depression Status: Chronic (4) Cervical spinal cord injury Status: Acute (5) Stenosis of cervical spine with myelopathy Status: Chronic DS: Summary Hospital Course: 58-year-old CF with a PMHx DM and spinal stenosis who presented with acute onset of bilateral arm and leg weakness for the past 4 days. Per MRI of the C- spine had an extruded disc fragment at C3-C4 eccentric to the right causing severe spinal canal stenosis with associated cord edema. Patient is s/p anterior cervical C3-4 interbody fusion, C3 and C4 partial corpectomies, anterior C3-4 cervical plate placement, C3-4 interbody cage placement, and microsurgical technique on 08/[address] Kam. Treatment course detailed below : 1. Postop Care s/p Anterior cervical C3-4 interbody fusion; C3 and C4 partial corpectomies; anterior C3-4 cervical plate placement; C3-4 interbody cage placement; microsurgical technique on 08/[address] Kam -Patient bandaged by neurosurgery. -Pain controlled with Percocet. She is discharged to [place] inpatient [facility] for further rehabilitation. 2. Urinary Incontinence -Due to above (cervical myelopathy) -Wise in place -Continue Wise and consider voiding trial when she is more mobile. 3. COPD -DuoNeb scheduled and as needed -On home O2 at home at night only, wean day time O2 -Cont. Symbicort, Singulair, and Spiriva 4. Depression/Anxiety -Cont. Cymbalta and Paroxetine -Cont. Vistaril PRN (patient was previously on benzos but her PCP would no longer prescribe them, advised we will try Vistaril as it is nonaddicting and patient is already on chronic narcotics at baseline). 5. Hypothyroidism -Cont. Levothyroxine 6. Hyperlipidemia -Cont. Pravastatin 7. Diabetes Mellitus, Type II -BS stable -Cont. Levemir 10U BID (at home on Janumet and Pioglitazone) -Cont. Insulin sliding scale while IP 8. Hypertension -controlled, cont. Metoprolol and Norvasc (started here), and Lisinopril to 20mg /12.5mg HCTZ, home Lasix -Cont. Clonidine PRN ( is on BID scheduled at home) resume if needed 9. Leukocytosis, resolved Neg U/A on admission Neg CXR Neg Urine Cx - Time Spent with Patient Total time spent providing and/or coordinating discharge services: Greater than 30 minutes - Quality: VTE Deep Vein Thrombosis/Pulmonary Embolism Present on Admission: No Exam Vital signs: Vital Signs 08/29/18 12:00 08/29/18 16:00 08/29/18 20:00 Temperature 98.1 F 98.0 F 97.6 F Pulse Rate 104 H 72 65 Respiratory Rate 20 20 18 Blood Pressure 147/66 H 134/60 110/58 L Pulse Oximetry 93 L 95 95 08/30/18 00:00 08/30/18 04:00 08/30/18 08:00 Temperature 97.7 F 97.8 F Pulse Rate 95 H 94 H Respiratory Rate 19 18 16 Blood Pressure 112/71 123/64 Pulse Oximetry 93 L 95 Intake & Output 08/29/18 08/30/18 08/30/18 18:59 06:59 18:59 Intake Total 200 / 200 Output Total 1250 / 1250 Balance -1050 / -1050 Weight 131.6 kg Intake: Oral 200 / 200 Output: Urine 1250 / 1250 Other: Date of Last Bowel Movement 08/22/18 08/29/18 Narrative: GENERAL: Obese female sitting up in the chair. NECK: Collar in place. CARDIOVASCULAR: Regular rate and rhythm without murmurs, gallops, or rubs. RESPIRATORY: Breath sounds equal bilaterally. No accessory muscle use. GASTROINTESTINAL: Abdomen soft, non-tender, nondistended. MUSCULOSKELETAL: No cyanosis, or edema. Left knee brace. NEURO: Bilateral LE motor strength 4/5, Bilateral UE 5/5. Results Procedures completed during hospitalization: See hospital summary Labs on day of discharge: Labs from last 24 hours 08/30/18 08/30/18 08/29/18 06:07 00:37 22:50 POC Glucose 176 H 200 H 200 H 08/29/18 08/29/18 17:51 13:04 POC Glucose 178 H 199 H - Impressions ITS Impressions Lumbar Spine MRI 08/16/18 22:50 CONCLUSION: Multilevel degenerative disc disease with moderate stenosis at L4-L5 secondary to disc bulge and posterior element hypertrophy. Left-sided protrusion at L5-S1, compromising the exiting left L5 nerve root Thoracic Spine MRI 08/16/18 22:50 CONCLUSION: 1. Mild multilevel degenerative disc disease as above without evidence of stenosis. Cervical Spine X-Ray 08/17/18 00:00 CONCLUSION: C3-4 fusion hardware placement. Chest X-Ray 08/17/18 00:00 CONCLUSION: Mild vascular congestion and interstitial prominence Cervical Spine MRI 08/17/18 22:48 CONCLUSION: Extruded disc fragment at C3-C4 eccentric to the right causing severe spinal canal stenosis with associated cord edema. There is a central to right-sided disc protrusion at C5-C6 compromising the nerve root exit zone. Discharge Plan - Discharge Disposition Patient Disposition: [facility] Inpatient - Discharge Condition Condition: Stable - Discharge Order Discharge Orders: Discharge Order (Routine); Ordered 08/30/18 Ordered By: Karthik Swift - Physicians Team Primary Care Provider: UNKNOWN, Attending Provider: Karthik Swift Other Providers: Alexis Kam MD ; Sade Guzman MD
== END 2018-08-30 13:52 ==
LOC: NEDAMB 18:11 → NEDA 08-17 00:51 → N03 08-17 02:18 → N05 08-20 17:32
PROVIDERS: ADMIT Family Medicine; ATTEND Family Medicine